=== PATIENT | male | born 1945 | race Caucasian/White ===

== ENCOUNTER 2018-04-16 19:54 | Inpatient (IN) ==
[2018-04-16] MEDS ORDERED: Sod Chloride 0.9% Inj 1,000 ML IV.CONT SCH ×2 (20:45→22:30)
[2018-04-16 21:13] LABS: Baso # (Auto) 0.1 th/mm3 (0.0-0.2); Eos # (Auto) 0.1 th/mm3 (0.0-0.4); Eos % (Auto) 1.2 % (0.0-4.0); Hematocrit 39.4 % (39.0-51.0); Hemoglobin 12.9 gm/dL (13.0-17.0); Lymph # (Auto) 2.3 th/mm3 (1.0-4.8); Lymph % (Auto) 30.8 % (9.0-44.0); Mean Corpuscular HGB Conc 32.6 % (32.0-36.0); Mean Corpuscular Hemoglobin 26.4 pg (27.0-34.0); Mean Platelet Volume 8.7 fL (7.0-11.0); Mono # (Auto) 0.6 th/mm3 (0.0-0.9); Mono % (Auto) 8.1 % (0.0-8.0); Neut # (Auto) 4.3 th/mm3 (1.8-7.7); Neut % (Auto) 58.9 % (16.0-70.0); Platelet Count 192 th/mm3 (150-450); Red Blood Count 4.87 mil/mm3 (4.50-5.90); Red Cell Distribution Width 12.5 % (11.6-17.2); White Blood Count 7.4 th/mm3 (4.0-11.0)
--- NOTE | 2018-04-16 21:18 | XR ---
EXAM DATE: 04/16/2018 9:15 PM EDT AGE/SEX: 72 years / Male INDICATIONS: Chest pain and weakness. CLINICAL DATA: This is the patient's initial encounter. Patient reports that signs and symptoms have been present for 1 day and indicates a pain score of 3/10. MEDICAL/SURGICAL HISTORY: None. None. COMPARISON: [facility], CHEST SINGLE AP, 07/16/2013. . FINDINGS: A single AP view of the chest demonstrates the lungs to be symmetrically aerated without evidence of mass, infiltrate or effusion. The cardiomediastinal contours are unremarkable. Osseous structures a re intact. CONCLUSION: Negative examination. Electronically signed by: Zenon Villar MD 04/16/2018 9:16 PM EDT
[2018-04-16 21:20] LABS: Chloride 101 meq/L (98-107); Potassium 3.9 meq/L (3.5-5.1); Sodium 139 meq/L (136-145)
[2018-04-16 21:23] LABS: Calcium 8.7 mg/dL (8.5-10.1)
[2018-04-16 21:24] LABS: Anion Gap 6 meq/L (5-15); Blood Urea Nitrogen 12 mg/dL (7-18); Glucose,Random 268 mg/dL (74-106)
--- NOTE | 2018-04-16 21:25 | ED ---
HPI General Chief complaint: Weakness Stated complaint: Trouble walking x am Source: patient Mode of arrival: ambulatory Limitations: no limitations History of Present Illness HPI narrative: Is a 72-year-old male presents to the emergency department weakness and unsteady gait. They report that he has not felt well today. He has a sort of limping staggering gait which is very unusual for him. He thinks his right leg is not working quite right. He has not had previous similar symptoms. Is a history of hypertension and diabetes. Blood pressures been very high in the emergency department. He typically takes an JANIE inhibitor and clonidine 0.3 mg 3 times daily. Is been taking that regularly. He takes amlodipine sort of as needed, not not very much. Heart rate has been low in the past. He follows with Dr. Ayers. Recently had a Holter monitor but they do not have those results. He otherwise has been feeling generally well and healthy. Related Data Home Medications Medication Instructions Recorded Confirmed clonidine HCl 0.3 mg PO BID 04/16/18 04/16/18 diazepam [Valium] 5 mg PO DAILY 04/16/18 04/16/18 enalapril maleate 20 mg PO DAILY 04/16/18 04/16/18 metformin 500 mg PO BID 04/16/18 04/16/18 Allergies Allergy/AdvReac Type Severity Reaction Status Date / Time No Known Allergies Allergy Uncoded 07/16/16 03:08 Review of Systems ROS: all other systems reviewed are negative [facility] Medical History Medical History History of anxiety (Acute) History of hypertension (Acute) Hx of diabetes mellitus (Acute) Hx of sinus bradycardia (Acute) Social History Social History Substance History: No History of Abuse Second Hand Smoke Exposure: No Smoking Status: Never smoker How Often Do You Have a Drink Containing Alcohol: Never Immunization History Tetanus Immunization: Unsure Hx Influenza Vaccine This Season: Yes Exam Narrative Exam Narrative: GENERAL: Well-appearing 72-year-old man, no acute distress. SKIN: Focused skin assessment warm/dry. HEAD: Atraumatic. Normocephalic. EYES: Pupils equal and round. No scleral icterus. No injection or drainage. ENT: No nasal bleeding or discharge. Mucous membranes pink and moist. NECK: Trachea midline. No JVD. CARDIOVASCULAR: Regular rate and rhythm. No murmur appreciated. RESPIRATORY: No accessory muscle use. Clear to auscultation. Breath sounds equal bilaterally. GASTROINTESTINAL: Abdomen soft, non-tender, nondistended. Hepatic and splenic margins not palpable. MUSCULOSKELETAL: No obvious deformities. No clubbing. No cyanosis. No edema. NEUROLOGICAL: Awake and alert. No obvious cranial nerve deficits. No facial asymmetry. Strength is full and equal upper and lower 70s. Sensations intact to light touch and equal bilaterally upper and lower extremities. On finger to nose he does display just a little bit of dysmetria as well as difficulty with heel to dennis on the right. On gait testing he also similarly seems to have with the gait with the right lower extremity. PSYCHIATRIC: Appropriate mood and affect; insight and judgment normal. Course Initial Documented Vital Signs Temperature 98.2 F 04/16/18 20:09 Pulse Rate 51 L 04/16/18 20:09 Respiratory Rate 18 04/16/18 20:09 Blood Pressure 225/135 H 04/16/18 20:09 Pulse Oximetry 98 04/16/18 20:09 Last Documented Vital Signs Temperature 98.2 F 04/16/18 20:09 Pulse Rate 48 L 04/16/18 22:19 Respiratory Rate 16 04/16/18 22:19 Blood Pressure 241/85 H 04/16/18 22:19 Pulse Oximetry 98 04/16/18 22:19 Medical Decision Making MDM Narrative Medical decision making narrative: 72-year-old male with a history of hypertension, presents markedly hypertensive with some cerebellar symptoms that are affecting the right. No overt weakness. Gait disturbance is unusual. Unclear etiology. Stroke versus hypertensive crisis versus other. We will give him a small dose of enalapril. Heart rate is still pretty low and symptomatic bradycardia is also possible but seems less likely given that he does appear to display some focal symptoms. Likely admission. Medical Screen Exam Complete: Yes Emergency Medical Condition: Yes Lab Data Result diagrams: 04/16/18 21:00 04/16/18 21:00 Lab Results 04/16/18 04/16/18 04/16/18 Range/Units 21:00 21:00 21:00 CBC w Diff Auto diff final WBC 7.4 (4.0-11.0) th/mm3 RBC 4.87 (4.50-5.90) mil/mm3 Hgb 12.9 L (13.0-17.0) gm/dL Hct 39.4 (39.0-51.0) % MCV 81.0 (80.0-100.0) fL MCH 26.4 L (27.0-34.0) pg MCHC 32.6 (32.0-36.0) % RDW 12.5 (11.6-17.2) % Plt Count 192 (150-450) th/mm3 MPV 8.7 (7.0-11.0) fL Neut % (Auto) 58.9 (16.0-70.0) % Lymph % (Auto) 30.8 (9.0-44.0) % [place] % (Auto) 8.1 H (0.0-8.0) % Eos % (Auto) 1.2 (0.0-4.0) % Baso % (Auto) 1.0 (0.0-2.0) % Neut # (Auto) 4.3 (1.8-7.7) th/mm3 Lymph # (Auto) 2.3 (1.0-4.8) th/mm3 [place] # (Auto) 0.6 (0.0-0.9) th/mm3 Eos # (Auto) 0.1 (0.0-0.4) th/mm3 Baso # (Auto) 0.1 (0.0-0.2) th/mm3 WBC Differential . Differential Comment . PT 10.3 (9.8-11.6) sec INR 1.0 Ratio APTT 25.0 (24.3-30.1) sec Sodium 139 (136-145) meq/L Potassium 3.9 (3.5-5.1) meq/L Chloride 101 (98-107) meq/L Carbon Dioxide 32.0 (21.0-32.0) meq/L Anion Gap 6 (5-15) meq/L BUN 12 (7-18) mg/dL Creatinine 1.30 (0.60-1.30) mg/dL Estimated GFR 54 L (>89) mL/min Random Glucose 268 H (74-106) mg/dL Calcium 8.7 (8.5-10.1) mg/dL Total Bilirubin 0.1 L (0.2-1.0) mg/dL AST 18 (15-37) U/L ALT 23 (12-78) U/L Alkaline Phosphatase 82 (45-117) U/L Total Creatine Kinase 273 (39-308) U/L CK-MB (CK-2) 3.1 (0.5-3.6) ng/mL Troponin I 0.03 (0.02-0.05) ng/mL Total Protein 6.7 (6.4-8.2) g/dL Albumin 3.0 L (3.4-5.0) g/dL Imaging Data Radiologist's impression: Chest X-Ray 04/16/18 20:44 CONCLUSION: Negative examination. Head CT 04/16/18 20:45 CONCLUSION: 1. 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 2. No acute infarct, acute hemorrhage, midline shift or extra-axial fluid collections. . Discharge Plan Discharge Disposition Patient Disposition: 30 Still Patient Physicians Team ED Provider: Andrea Card Primary Care Provider: Roel Whittington Attending Provider: Ishaan Chavez Discharge Interventions Interventions: Vital Signs Last Done: 04/16/18 22:19 Status ED Status: Admitted Patient
[2018-04-16 21:26] LABS: Prothrombin Time 10.3 sec (9.8-11.6)
[2018-04-16 21:27] LABS: Alanine Aminotransferase 23 U/L (12-78); Aspartate Aminotransferase 18 U/L (15-37); Glomerular Filtration Rate 54 mL/min (>89)
[2018-04-16 21:29] LABS: Total Protein 6.7 g/dL (6.4-8.2)
[2018-04-16 21:30] LABS: Alkaline Phosphatase 82 U/L (45-117); Creatine Kinase 273 U/L (39-308)
[2018-04-16 21:32] LABS: Troponin I 0.03 ng/mL (0.02-0.05)
[2018-04-16 21:42] LABS: Creatine Kinase MB 3.1 ng/mL (0.5-3.6)
--- NOTE | 2018-04-16 22:03 | CT ---
EXAM DATE: 04/16/2018 9:57 PM EDT AGE/SEX: 72 years / Male INDICATIONS: Trouble walking after waking up. Possible transient ischemic attack. CLINICAL DATA: This is the patient's initial encounter. Patient reports that signs and symptoms have been present for 1 day and indicates a pain score of 0/10. MEDICAL/SURGICAL HISTORY: . Anxiety. Hypertension. Diabetes. Sinus bradycardia. None. RADIATION DOSE: 59.86 CTDI (mGy) COMPARISON: No prior exams available for comparison. TECHNIQUE: CT of the head without contrast. Using automated exposure control and adjustment of the mA and/or kV according to patient size, radiation dose was kept as low as reasonably achievable to ob tain optimal diagnostic quality images. DICOM format image data is available electronically for revi ew and comparison. FINDINGS: Cerebrum: The ventricles are normal for age. No evidence of midline shift, mass lesion, hemorrhage or acute infarction. No extraaxial fluid collections are seen. Old tiny lacunar infarcts are noted w ithin the right basal ganglia. Posterior Fossa: The cerebellum and brainstem are intact. The 4th ventricle is midline. The cerebe llopontine angle is unremarkable. Extracranial: The visualized portion of the orbits is intact. Skull: The calvaria is intact. No evidence of skull fracture. CONCLUSION: 1. 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 2. No acute infarct, acute hemorrhage, midline shift or extra-axial fluid collections. . Electronically signed by: Zenon Villar MD 04/16/2018 10:01 PM EDT
[2018-04-16] MEDS ORDERED: niCARdipine Inj 25 MG in Sodium Chlor 0.9% Inj 240 ML IV.CONT PRN (22:16)
[2018-04-16] MEDS ORDERED: Acetaminophen 325 MG Tablet PO PRN (22:26)
[2018-04-16] MEDS ORDERED: Potassium Chloride 25 MEQ Effervescent Tablet PO PRN (22:26)
[2018-04-16] MEDS ORDERED: Sodium Phosphate Inj 30 MMOL in Sodium Chlor 0.9% Inj 250 ML IV.SIG PRN (22:26)
[2018-04-16] MEDS ORDERED: Magnesium Sulfate Inj 4 GM in Sodium Chlor 0.9% Inj 92 ML IV.SIG PRN (22:26)
[2018-04-16] MEDS ORDERED: Potassium Phosphate 500 MG Soluble Tablet PO PRN ×2 (22:26)
[2018-04-16] MEDS ORDERED: Potassium Chlor 20 mEq Premix 20 MEQ/100 ML PIGGYBACK IV.SIG PRN ×2 (22:26)
[2018-04-16] MEDS ORDERED: hydrALAZINE HCl Inj 20 MG/ML Vial IV.PUSH PRN (22:26)
[2018-04-16] MEDS ORDERED: Magnesium Oxide 400 MG Tablet PO PRN (22:26)
[2018-04-16] MEDS ORDERED: Potassium Phosphate Inj 30 MMOL in Sodium Chlor 0.9% Inj 250 ML IV.SIG PRN (22:26)
[2018-04-16] MEDS ORDERED: Bisacodyl 10 MG Supp RECTAL PRN (22:26)
[2018-04-16] MEDS ORDERED: Potassium Chlor 40 mEq Premix 40 MEQ/100 ML PIGGYBACK IV.SIG PRN ×2 (22:26)
[2018-04-16] MEDS ORDERED: Magnesium Sulfate Inj 2 GM in Sodium Chlor 0.9% Inj 96 ML IV.SIG PRN (22:26)
[2018-04-16] MEDS ORDERED: Enoxaparin Inj 40 MG/0.4 ML Syringe SQ SCH (22:45)
[2018-04-16] MEDS ORDERED: Enoxaparin Inj 60 MG/0.6 ML Syringe SQ SCH (23:27)
--- NOTE | 2018-04-16 23:51 | CT ---
EXAM DATE: 04/16/2018 11:37 PM EDT AGE/SEX: 72 years / Male INDICATIONS: Dysmetria. Trouble walking after waking up this morning. Prior CT head done. CLINICAL DATA: This is the patient's initial encounter. Patient reports that signs and symptoms have been present for 1 day and indicates a pain score of 0/10. MEDICAL/SURGICAL HISTORY: . Anxiety. Hypertension. Diabetes. Sinus bradycardia. None. RADIATION DOSE: 43.15 CTDI (mGy) COMPARISON: No prior exams available for comparison. TECHNIQUE: Volumetric scanning was performed using a multi-row detector CT scanner during bolus infu caterina of 75 ml Omnipaque 350 (iohexol) nonionic water-soluble contrast as a single exam dose. The d renae was post processed with a variety of visualization algorithms including full volume maximum inten sity projection, multi-planar sliding thin slab reformation, curved planar reformation, and surface r endering techniques. Using automated exposure control and adjustment of the mA and/or kV according t o patient size, radiation dose was kept as low as reasonably achievable to obtain optimal diagnostic quality images. DICOM format image data is available electronically for review and comparison. FINDINGS: There is excellent visualization of the major intracranial arteries out to the second-order branch ve ssels. There is no evidence for aneurysm, vessel truncation or vascular malformation. The proximal right A1 segment is narrow. No flow seen in the anterior communicating artery or either PCOM. CONCLUSION: 1. Atretic proximal right A1 segment. 2. Otherwise negative CTA of the [place]. Electronically signed by: Killian Green MD 04/16/2018 11:50 PM EDT
--- NOTE | 2018-04-16 23:56 | CT ---
EXAM DATE: 04/16/2018 11:37 PM EDT AGE/SEX: 72 years / Male INDICATIONS: Dysmetria. Trouble walking after waking up this morning. Prior CT head done. CLINICAL DATA: This is the patient's initial encounter. Patient reports that signs and symptoms have been present for 1 day and indicates a pain score of 0/10. MEDICAL/SURGICAL HISTORY: . Anxiety. Hypertension. Diabetes. Sinus bradycardia. None. RADIATION DOSE: 43.15 CTDI (mGy) COMPARISON: No prior exams available for comparison. TECHNIQUE: Volumetric scanning was performed using a multirow detector CT scanner during bolus infus ion of 75 ml Omnipaque 350 (iohexol) nonionic water-soluble contrast as a cumulative dose for multip le exams. The data was postprocessed with a variety of visualization algorithms including full-volu me maximum intensity projection, multiplanar sliding thin-slab reformation, curved-planar reformation , and surface-rendering techniques. Using automated exposure control and adjustment of the mA and/or kV according to patient size, radiation dose was kept as low as reasonably achievable to obtain opti mal diagnostic quality images. DICOM format image data is available electronically for review and co mparison. FINDINGS: Aortic Arch: There is a three-vessel origin of the great vessels from the aorta. No evidence of ost ial narrowing Right Carotid: The common carotid artery is intact. The carotid bulb has a normal configuration wit hout ulceration or narrowing. There is a focal calcification in the proximal internal carotid artery without luminal narrowing. The internal carotid artery lumen is smooth without stenosis. The planning supervisor al carotid artery is intact. Left Carotid: The common carotid artery is intact. The carotid bulb has a normal configuration with out ulceration or narrowing. There is a short segment plaque in the proximal internal carotid artery with central calcification and surrounding noncalcified plaque causing less than 40% narrowing. The external carotid artery is intact. Vertebrals: Vertebral system is right dominant. Percent stenosis is calculated using the diameter of the stenotic region over the diameter of the nor mal distal internal carotid artery. CONCLUSION: 1. Short segment calcified and noncalcified plaque in the proximal left internal carotid artery caus ing less than 40% stenosis. 2. Normal luminal diameter of the right carotid system. 3. Right dominant vertebral system. Electronically signed by: Killian Green MD 04/16/2018 11:55 PM EDT
[2018-04-17] MEDS ORDERED: Chlorhexidine Gluconate 2% 1 Pack (2 Cloths) TOPICAL PRN (04:00)
[2018-04-17 07:20] LABS: Baso # (Auto) 0.1 th/mm3 (0.0-0.2); Baso % (Auto) 1.1 % (0.0-2.0); Eos # (Auto) 0.1 th/mm3 (0.0-0.4); Eos % (Auto) 1.3 % (0.0-4.0); Hematocrit 36.5 % (39.0-51.0); Hemoglobin 11.8 gm/dL (13.0-17.0); Lymph # (Auto) 2.2 th/mm3 (1.0-4.8); Lymph % (Auto) 31.5 % (9.0-44.0); Mean Corpuscular HGB Conc 32.4 % (32.0-36.0); Mean Corpuscular Hemoglobin 25.5 pg (27.0-34.0); Mean Corpuscular Volume 78.9 fL (80.0-100.0); Mean Platelet Volume 9.4 fL (7.0-11.0); Mono # (Auto) 0.6 th/mm3 (0.0-0.9); Mono % (Auto) 8.7 % (0.0-8.0); Neut # (Auto) 4.1 th/mm3 (1.8-7.7); Neut % (Auto) 57.4 % (16.0-70.0); Platelet Count 175 th/mm3 (150-450); Red Blood Count 4.63 mil/mm3 (4.50-5.90); Red Cell Distribution Width 12.8 % (11.6-17.2); White Blood Count 7.1 th/mm3 (4.0-11.0)
[2018-04-17 07:40] LABS: Potassium 3.6 meq/L (3.5-5.1)
[2018-04-17 07:43] LABS: Calcium 8.5 mg/dL (8.5-10.1); Carbon Dioxide 30.3 meq/L (21.0-32.0); Magnesium 1.9 mg/dL (1.5-2.5)
[2018-04-17 07:47] LABS: Phosphorus 2.6 mg/dL (2.5-4.9)
[2018-04-17] MEDS ORDERED: Senna/Docusate Sodium 8.6/50 MG Tablet PO SCH (09:00)
[2018-04-17] MEDS ORDERED: Polyethylene Glycol 3350 17 GM Packet PO SCH (09:00)
[2018-04-17] MEDS ORDERED: Nitroglycerin Drip Premix 50 MG/250 ML BOTTLE IV.CONT PRN (09:05)
--- NOTE | 2018-04-17 09:16 | P.HPCC ---
History of Present Illness Service: Critical care ([facility]) Primary Care Physician: Roel Whittington Chief Complaint: Right leg weakness History of Present Illness: 72yM presenting to the ED overnight with right leg weakness/ numbness and unsteady gait. The patient states that he woke up yesterday morning with difficulty moving his right leg and feeling "off balance". He reports that the symptoms did not improve over the course of the day, so he went to the emergency department, where he was found to have profound hypertension. The patient says that he has a history of hypertension and "white coat syndrome" but has never had a hypertensive emergency in the past. He denies facial droop, slurred speech, aphasia, difficulty swallowing, arm weakness/ numbness, or confusion. He has no history of CVA/ TIA in the past. H/O HTN, diabetes, anxiety Family history non-contributory (specifically no history of CVA/ TIA, CAD, [place]) - Diagnosis (1) Hypertensive emergency (2) Ataxia (3) Right leg weakness (4) Bradycardia (5) H/O diabetes mellitus Inpatient Certification: I certify that the inpatient services were ordered in accordance with Medicare regulations governing the order. This includes certification that hospital inpatient services are reasonable and necessary and in the case of services not specified as inpatient-only under 42 CFR 419.22(n), that they are appropriately provided as inpatient services in accordance to with the 2-midnight benchmark under 43 CFR 412.3(e) Estimated Total Length of Stay (Days): 7 Plans for Post Hospital Care: Not yet determined Review of Systems Constitutional: Denies fever(s) Eyes: Denies change in vision Ears, Nose, Mouth, and Throat: Denies difficulty swallowing Cardiovascular: Denies chest pain Respiratory: Denies cough Gastrointestinal: Denies abdominal pain Musculoskeletal: Reports abnormal walking Skin/Breast: Denies rash Neurologic: Reports weakness Psychiatric: Reports anxiety PMFSH - History History Provided By: Patient - Medical History Medical History: Medical History (Last Reviewed 04/17/18 @ 09:37 by Cait Radford DO) History of anxiety History of hypertension Hx of diabetes mellitus Hx of sinus bradycardia - Social History I have reviewed the patient's Social History: Yes - Tobacco History Second Hand Smoke Exposure: No Tobacco Use In Past 30 Days: No Smoking Status: Never smoker - Alcohol History How Often Do You Have a Drink Containing Alcohol: Monthly or less - Substance Use History Substance History: No History of Abuse - Immunization History Tetanus Immunization: Unsure Hx Influenza Vaccine This Season: Yes Medications and Allergies Active Medications: Active Medications Acetaminophen (Tylenol) 650 mg PO Q6H PRN PRN Reason: TEMPERATURE > 101 F Albuterol (Duoneb Neb (Prn)) 1 ampul NEB Q2HR NEB PRN PRN Reason: WHEEZING Aspirin (Ecotrin) 81 mg PO DAILY SAHARA Bisacodyl (Dulcolax Supp) 10 mg RECTAL DAILY PRN PRN Reason: if no BM in last 24h Chlorhexidine Gluconate (Chlorhexidine 2% Cloth) 3 pack TOPICAL DAILY@0400 SAHARA Stop: 04/22/18 03:59 Chlorhexidine Gluconate (Chlorhexidine 2% Cloth) 3 pack TOPICAL DAILY@0400 PRN PRN Reason: Extra cloth needed Stop: 04/22/18 03:59 Dextrose (D50w Syringe) 50 ml IV.PUSH UNSCH PRN PRN Reason: PER HYPOGLYCEMIA PROTOCOL Enoxaparin Sodium (Lovenox Inj) 40 mg SQ DAILY SAHARA Famotidine (Pepcid) 20 mg PO BID SAHARA Glucagon (Glucagon Inj) 1 mg IM ONCE PRN PRN Reason: blood sugar < 60, no iv access Hydralazine HCl (Apresoline Inj) 10 mg IV.PUSH Q30M PRN PRN Reason: sbp > 160, dbp > 95 Sodium Chloride (Ns Inj) 1,000 mls @ 70 mls/hr IV.CONT .[id number] SAHARA Stop: 04/17/18 11:02 Last Admin: 04/16/18 21:13 Dose: 70 mls/hr Magnesium Sulfate Inj 4 gm/ (Sodium Chloride) 100 mls @ 50 mls/hr IV.SIG UNSCH PRN PRN Reason: For Magnesium 0.9 - 1.1 mg/dL Magnesium Sulfate Inj 2 gm/ (Sodium Chloride) 100 mls @ 50 mls/hr IV.SIG UNSCH PRN PRN Reason: For Magnesium 1.2 - 1.6 mg/dL Potassium Chloride (Kcl 40 Meq Premix Inj) 40 meq in 100 mls @ 25 mls/hr IV.SIG Q2H PRN PRN Reason: For Potassium 2.8 - 3.2 mEq/L Potassium Chloride (Kcl 20 Meq Premix Inj) 20 meq in 100 mls @ 50 mls/hr IV.SIG Q2H PRN PRN Reason: For Potassium 3.3 - 3.5 mEq/L Potassium Chloride (Kcl 40 Meq Premix Inj) 40 meq in 100 mls @ 25 mls/hr IV.SIG UNSCH PRN PRN Reason: For Potassium 3.3 - 3.5 mEq/L Potassium Chloride (Kcl 20 Meq Premix Inj) 20 meq in 100 mls @ 50 mls/hr IV.SIG Q2H PRN PRN Reason: For Potassium 2.8 - 3.2 mEq/L Potassium Phosphate 30 mmol/ (Sodium Chloride) 260 mls @ 42 mls/hr IV.SIG UNSCH PRN PRN Reason: SEE LABEL COMMENTS Sodium Phosphate 30 mmol/ (Sodium Chloride) 260 mls @ 42 mls/hr IV.SIG UNSCH PRN PRN Reason: For Phosphorus < 2.5 mg/dL Sodium Chloride (Ns Inj) 1,000 mls @ 84 mls/hr IV.CONT .[id number] [facility] Last Admin: 04/16/18 22:50 Dose: 84 mls/hr Nitroglycerin/Dextrose (Nitroglycerin Drip Premix) 50 mg in 250 mls @ 0 mls/hr IV.CONT TITRATE PRN; Protocol PRN Reason: Per Protocol Insulin Human Regular (Novolin R Inj) 1 units SQ Q6HR [facility]; Protocol Last Admin: 04/17/18 06:10 Dose: 1 units Labetalol HCl (Trandate Inj) 10 mg IV.PUSH Q20M PRN PRN Reason: sbp > 160 or DBP > 95 Lactulose (Lactulose Liq) 30 ml PO BID [facility] Magnesium Oxide (Mag-Ox) 800 mg PO UNSCH PRN PRN Reason: For Magnesium 1.2 - 1.6 mg/dL Ondansetron HCl (Zofran Inj) 4 mg IV.PUSH Q6H PRN PRN Reason: NAUSEA OR VOMITING Polyethylene Glycol (Miralax) 17 gm PO BID [facility] Potassium Bicarb/Potassium Chloride (K-Lyte Cl Eff) 50 meq PO UNSCH PRN PRN Reason: For Potassium 3.3 - 3.5 mEq/L Potassium Phosphate (K-Phos Original) 2,000 mg PO Q4H PRN PRN Reason: Phosphorus Less Than 2.5 mg/dL Potassium Phosphate (K-Phos Original) 2,000 mg PO UNSCH PRN PRN Reason: SEE LABEL COMMENTS Senna/Docusate Sodium (Sabi-Colace) 1 tab PO BID SAHARA Sodium Chloride (Ns Flush) 2 ml IV.FLUSH PRN PRN PRN Reason: FLUSH AFTER USING IV ACCESS Sodium Chloride (Ns Flush) 2 ml IV.FLUSH UNSCH PRN PRN Reason: FLUSH AFTER USING IV ACCESS Allergies Allergy/AdvReac Type Severity Reaction Status Date / Time No Known Allergies Allergy Uncoded 07/16/16 03:08 Home Medications Medication Instructions Recorded Confirmed Type clonidine HCl 0.3 mg PO BID 04/16/18 04/16/18 History diazepam [Valium] 5 mg PO DAILY 04/16/18 04/16/18 History enalapril maleate 20 mg PO DAILY 04/16/18 04/16/18 History metformin 500 mg PO BID 04/16/18 04/16/18 History insulin NPH and regular human 1 sliding scale dose SUB-Q UD 04/17/18 04/17/18 History [Humulin 70/30 U-100 Insulin] Results - Labs CBC & Chem 7: 04/17/18 06:00 04/17/18 06:00 Labs: Short CBC 04/16/18 04/17/18 Range/Units 21:00 06:00 WBC 7.4 7.1 (4.0-11.0) th/mm3 Hgb 12.9 L 11.8 L (13.0-17.0) gm/dL Hct 39.4 36.5 L (39.0-51.0) % Plt Count 192 175 (150-450) th/mm3 [facility] 04/16/18 04/17/18 21:00 06:00 Sodium 139 142 Potassium 3.9 3.6 Chloride 101 105 Carbon Dioxide 32.0 30.3 BUN 12 12 Creatinine 1.30 1.10 Calcium 8.7 8.5 Cardiac Enzymes 04/16/18 Range/Units 21:00 Total Creatine Kinase 273 (39-308) U/L CK-MB (CK-2) 3.1 (0.5-3.6) ng/mL Troponin I 0.03 (0.02-0.05) ng/mL Liver Function 04/16/18 Range/Units 21:00 Total Bilirubin 0.1 L (0.2-1.0) mg/dL AST 18 (15-37) U/L ALT 23 (12-78) U/L Alkaline Phosphatase 82 (45-117) U/L Albumin 3.0 L (3.4-5.0) g/dL - Imaging Impressions Chest X-Ray 04/16/18 20:44 CONCLUSION: Negative examination. Head CT 04/16/18 20:45 CONCLUSION: 1. 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 2. No acute infarct, acute hemorrhage, midline shift or extra-axial fluid collections. . Head CTA 04/16/18 22:22 CONCLUSION: 1. Atretic proximal right A1 segment. 2. Otherwise negative CTA of the [place]. Neck CTA 04/16/18 22:22 CONCLUSION: 1. Short segment calcified and noncalcified plaque in the proximal left internal carotid artery causing less than 40% stenosis. 2. Normal luminal diameter of the right carotid system. 3. Right dominant vertebral system. Exam Vital signs: Vital Signs 04/16/18 20:09 04/16/18 20:21 04/16/18 21:03 Temperature 98.2 F Pulse Rate 51 L 49 L Respiratory Rate 18 16 Blood Pressure 225/135 H 234/86 H Pulse Oximetry 98 99 98 04/16/18 21:22 04/16/18 22:19 04/16/18 22:35 Temperature Pulse Rate 48 L 48 L Respiratory Rate 16 Blood Pressure 245/85 H 241/85 H Pulse Oximetry 99 98 98 04/16/18 23:00 04/17/18 00:16 04/17/18 01:55 Temperature Pulse Rate 48 L 48 L 49 L Respiratory Rate 16 16 16 Blood Pressure 241/88 H 214/70 H 204/70 H Pulse Oximetry 99 04/17/18 03:00 04/17/18 04:29 04/17/18 06:00 Temperature Pulse Rate 49 L 56 L 46 L Respiratory Rate 16 16 16 Blood Pressure 209/77 H 196/76 H 207/74 H Pulse Oximetry 98 98 98 04/17/18 07:15 04/17/18 08:12 Temperature 98 F Pulse Rate 49 L 43 L Respiratory Rate 19 Blood Pressure 211/80 H 207/81 H Pulse Oximetry 98 98 Intake & Output 04/16/18 04/17/18 04/17/18 18:59 06:59 18:59 Weight 94.8 kg 96.8 kg Other: Weight On Admission 94.8 kg Narrative: GEN: Well-nourished well-developed male, no acute distress HEENT: NCAT, pupils 3 mm and reactive bilaterally, tongue and uvula midline NECK: Trachea midline, no carotid bruits CARDIO: Bradycardic to 40s, regular PULM: Clear to auscultation bilaterally ABD: Soft, non-distended, non-tender in all quadrants EXT: No peripheral edema SKIN: No rashes or lesions NEURO: GCS 15, A&Ox3, speech clear and fluent, no slurred speech or aphasia. No facial droop. Motor strength 5/5 in RUE, LUE, and LLE and 4/5 in RLE (hip/ knee flexion/ extension; no foot drop); sensation intact to all extremities. No apparent confusion. PSYCH: Appropriate affect Caprini VTE Risk Assessment Caprini VTE Risk Assessment: Moderate/High Risk (score >= 2) Caprini Risk Assessment Model: Point Value = 1 Point Value = 2 Point Value = 3 Point Value = 5 Age 41-60 Minor surgery BMI > 25 kg/m2 Swollen legs Varicose veins or History of unexplained or recurrent spontaneous Oral contraceptives or hormone replacement Sepsis (< 1 month) Serious lung disease, including pneumonia (< 1 month) Abnormal pulmonary function Acute myocardial infarction Congestive heart failure (< 1 month) History of inflammatory bowel disease Medical patient at bed rest Age 61-74 Arthroscopic surgery Major open surgery (> 45 min) Laparoscopic surgery (> 45 min) Malignancy Confined to bed (> 72 hours) Immobilizing plaster cast Central venous access Age >= 75 History of VTE Family history of VTE Factor V Leiden Prothrombin [id number] Lupus anticoagulant Anticardiolipin antibodies Elevated serum homocysteine Heparin-induced thrombocytopenia Other congenital or acquired thrombophilia Stroke (< 1 month) Elective arthroplasty Hip, pelvis, or leg fracture Acute spinal cord injury (< 1 month) Prophylaxis Regimen: Total Risk Factor Score Risk Level Prophylaxis Regimen 0-1 Low Early ambulation 2 Moderate Order ONE of the following: *Sequential Compression Device (SCD) *Heparin 5000 units SQ BID 3-4 Higher Order ONE of the following medications: *Heparin 5000 units SQ TID *Enoxaparin/Lovenox 40 mg SQ daily (WT < 150 kg, CrCl > 30 mL/min) *Enoxaparin/Lovenox 30 mg SQ daily (WT < 150 kg, CrCl > 10-29 mL/min) *Enoxaparin/Lovenox 30 mg SQ BID (WT < 150 kg, CrCl > 30 mL/min) AND/OR *Sequential Compression Device (SCD) 5 or more Highest Order ONE of the following medications: *Heparin 5000 units SQ TID (Preferred with Epidurals) *Enoxaparin/Lovenox 40 mg SQ daily (WT < 150 kg, CrCl > 30 mL/min) *Enoxaparin/Lovenox 30 mg SQ daily (WT < 150 kg, CrCl > 10-29 mL/min) *Enoxaparin/Lovenox 30 mg SQ BID (WT < 150 kg, CrCl > 30 mL/min) AND *Sequential Compression Device (SCD) Assessment and Plan - Problem List (1) Hypertensive emergency Code(s): I16.1 - Hypertensive emergency Status: Acute (2) Ataxia Code(s): R27.0 - Ataxia, unspecified Status: Acute (3) Right leg weakness Code(s): R29.898 - Other symptoms and signs involving the musculoskeletal system Status: Acute (4) Bradycardia Code(s): R00.1 - Bradycardia, unspecified Status: Acute (5) H/O diabetes mellitus Code(s): Z86.39 - Personal history of other endocrine, nutritional and metabolic disease Status: Acute - Assessment and Plan Plan: 72yM presenting with ataxia, right lower extremity weakness, and profound hypertension with concern for brainstem CVA NEURO: -Neuro consult appreciated -MRI brain -CT/ CTA head and neck reviewed, no hemorrhage or flow-limiting lesions noted -Patient presented with unclear time of onset so was not a candidate for tPA -Stroke pathway -Continue home dose of valium -Patient is hypertensive and bradycardic but has no signs of elevated intracranial pressure CARDIO: -Profoundly hypertensive with relative bradycardia (HR in 30s-40s), will switch cardene gtt to tridil gtt for better BP control. Please keep SBP <180 mmHg -ASA -monitoring and evaluation advisor, ECHO -Continue home dose of clonidine, hold JANIE-I PULM: -Incentive spirometry GI: -No acute issues : -No acute issues F/E/N: -Passed dysphagia screening, start cardiac diet -Sliding scale -No maintenance fluids ID: -No acute issues HEME: -No acute issues PROPHY: -Lovenox, SCDs -No indication for stress ulcer prophylaxis OVERALL: This patient is critically ill with signs and symptoms concerning for brainstem CVA and profound hypertension requiring vasoactive medications for BP control. He will need transfer to the main campus for ICU care, close monitoring , and neurology evaluation. I explained this plan to the patient and his , who understand and agree. Counseling/ Coordination of Care: Total critical care time: 68 minutes. This includes examining the patient, gathering history from someone other than the patient (i.e., chart review), discussing the patient's care with other providers, managing the patient's blood pressure with vasoactive medications, ordering and interpreting radiology studies, ordering and interpreting laboratory studies, arranging for transfer to another campus, re-evaluation at frequent intervals, and documentation. All critical care time is separate and exclusive of procedures, teaching, and patient/ family updates. Code Status: Full H&P: Quality - Stroke Contraindication Not Initiating IV-Tpa: Contraindicated Symptom Onset Unknown: Yes Rehab Services Assessed: Physical therapy assessment - VTE Deep Vein Thrombosis/Pulmonary Embolism Present on Admission: No
[2018-04-17] MEDS ORDERED: Senna/Docusate Sodium 8.6/50 MG Tablet PO PRN (09:54)
[2018-04-17] MEDS: Famotidine 20 MG Tablet PO SCH ×2 (10:28→21:18)
[2018-04-17] MEDS: Chlorhexidine Gluconate 2% 1 Pack (2 Cloths) TOPICAL SCH (10:28)
[2018-04-17] MEDS: Enoxaparin Inj 40 MG/0.4 ML Syringe SQ SCH (10:29)
[2018-04-17 10:59] LABS: Chol/HDL Ratio 2.82 Ratio; HDL Cholesterol 52.7 mg/dL (40.0-60.0)
--- NOTE | 2018-04-17 12:23 | ECHRPT ---
Indication: CVA/TIA CONCLUSIONS The left ventricular systolic function is normal with an estimated ejection fraction in the range of 55-60%. Normal left ventricular size. Moderate concentric left ventricular hypertrophy. No regional wall motion abnormalities are present. BP: / HR: Rhythm: MEASUREMENTS (Male / Female) Normal Values Technical Quality: 2D ECHO LV Diastolic Diameter PLAX 4.8 cm 4.2 - 5.9 / 3.9 - 5.3 cm LV Systolic Diameter PLAX 3.6 cm IVS Diastolic Thickness 1.3 cm 0.6 - 1.0 / 0.6 - 0.9 cm LVPW Diastolic Thickness 1.4 cm 0.6 - 1.0 / 0.6 - 0.9 cm LV Relative Wall Thickness 0.6 LVOT Diameter 2.0 cm LA Systolic Diameter LX 3.2 cm 3.0 - 4.0 / 2.7 - 3.8 cm LV Ejection Fraction MOD 4C 56.7 % LV Ejection Fraction 4C AL 60.8 % M-MODE Aortic Root Diameter MM 2.3 cm LA Systolic Diameter MM 3.2 cm LA Ao Ratio MM 1.4 AV Cusp Separation MM 1.8 cm DOPPLER AV Peak Velocity 130.0 cm/s AV Peak Gradient 6.8 mmHg LVOT Peak Velocity 100.0 cm/s LVOT Peak Gradient 4.0 mmHg AV Area Cont Eq pk 2.4 cm MV Area PHT 3.2 cm Mitral E Point Velocity 81.4 cm/s Mitral A Point Velocity 79.0 cm/s Mitral E to A Ratio 1.0 LV E' Lateral Velocity 6.9 cm/s Mitral E to LV E' Lateral Ratio 11.8 LV E' Septal Velocity 4.6 cm/s Mitral E to LV E' Septal Ratio 17.8 PV Peak Velocity 88.2 cm/s PV Peak Gradient 3.1 mmHg FINDINGS LEFT VENTRICLE The left ventricular systolic function is normal with an estimated ejection fraction in the range of 55-60%. Normal left ventricular size. Moderate concentric left ventricular hypertrophy. No regional wall motion abnormalities are present. RIGHT VENTRICLE Normal right ventricular size and systolic function. LEFT ATRIUM The left atrial size is normal. RIGHT ATRIUM The right atrial size is normal. ATRIAL SEPTUM Normal atrial septal thickness without atrial level shunting by limited color doppler interrogation. AORTA The aortic root and proximal ascending aorta are normal in size on limited imaging. MITRAL VALVE Structurally normal mitral valve. No mitral valve stenosis or regurgitation. AORTIC VALVE Trileaflet aortic valve. No aortic valve stenosis or regurgitation. TRICUSPID VALVE Structurally normal tricuspid valve. No tricuspid valve stenosis or regurgitation. PULMONARY VALVE The pulmonary valve is not well visualized. VESSELS The inferior vena cava is normal in size. PERICARDIUM No pericardial effusion. Andrea Santoyo MD, FACC (Electronically Signed) Final Date:17 April 2018 12:22
--- NOTE | 2018-04-17 12:50 | MR ---
EXAM DATE: 04/17/2018 12:08 PM EDT AGE/SEX: 72 years / Male INDICATIONS: CVA. CLINICAL DATA: This is the patient's initial encounter. Patient reports that signs and symptoms have been present for 2 days and indicates a pain score of 0/10. MEDICAL/SURGICAL HISTORY: Diabetes mellitus type II. Hypertension. None. COMPARISON: No prior exams available for comparison. TECHNIQUE: Multiplanar, multisequence examination of the brain was performed without contrast. FINDINGS: Cerebrum: The ventricles are normal for age. No evidence of midline shift, mass lesion, hemorrhage or acute infarction. No extraaxial fluid collections are seen. The pituitary gland and suprasellar cistern are normal in configuration. White Matter: Minimal periventricular matter changes are evident. Posterior Fossa: Posterior fossa is abnormal. There is focal restricted diffusion involving the left cerebellar peduncle and brachium pontis. There is no hemorrhage associated with this. Fourth ventricl e is midline. Cerebellar hemisphere is unremarkable. Diffusion Imaging: Restricted diffusion left cerebellar peduncle. Extracranial: The visualized portions of the orbits and paranasal sinuses are unremarkable. CONCLUSION: 1. Restricted diffusion left cerebellar peduncle. 2. The basilar artery appears patent. Electronically signed by: Chris Jones MD 04/17/2018 12:48 PM EDT
[2018-04-17] MEDS ORDERED: Polyethylene Glycol 3350 17 GM Packet PO PRN (13:13)
--- NOTE | 2018-04-17 13:32 | MB ---
cc: Abimbola Morton MD DATE: 04/17/2018 HISTORY OF PRESENT ILLNESS: The patient is a 72-year-old man who comes in with unsteadiness, ataxia on the right side; staggering. He has a known history of hypertension and diabetes. He is on an JANIE inhibitor and clonidine. He states he takes aspirin every so often, he mostly forgets. He has been having some bradycardia. He follows with Dr. Vieyra for that. His amlodipine is apparently as needed per chart note; apparently had a Holter monitor, but we do not have those results. PAST MEDICAL HISTORY: Is also anxiety, diabetes, hypertension and bradycardia. SOCIAL HISTORY: He is , does not smoke, does not drink. PHYSICAL EXAMINATION: VITAL SIGNS: His temperature is 98, heart rate 44, respiratory rate 20, blood pressure at 10:50 a.m. is 169/74. NECK: Supple with no appreciable bruits. HEART: Regular. NEUROLOGIC: He is awake and alert; fluent. Pupils reactive. Visual clement full. Face is symmetric. Tongue midline. Motor-thornton no significant drift or leg lag, but he does have significant dysmetria of [id number] on the right upper as well as lower extremity. His DTRs are 1+. Toes withdraws gait is not assessed at this time. LABORATORY DATA: His cholesterol is 149, triglycerides 69, LDL 83, HDL 52.7. His hemoglobin A1c is pending. White count 7.1, hemoglobin 11.8, his platelets 175,000. Chemistries: Glucose 210, GFR 65, albumin 3. IMAGIN. He had a CT of the brain; shows an old lacune in the right basal ganglia, but nothing acute seen on initial CT on admission. 2. CT of the carotid showed left ICA about 40%. [place] showed atretic right A1, but otherwise really unremarkable. 3. Just came back from an MRI of the brain that show an acute infarct over the left brainstem region. We will wait for the official report. IMPRESSION: 1. Left brainstem infarct in a patient with known history of hypertension, diabetes, hyperlipidemia. Recommend placing him on daily aspirin since he is noncompliant. 2. Permissible hypertension. For the next 48 hours certainly treat if over 220/110 but do not lower him below 140 systolic. 3. Issue with the bradycardia we will defer as cardiology will be assessing him or not. I know, there is mention that he may have had a Holter at some point in time. Continue to monitor him on telemetry. He will need PT, OT evaluation as well as a rehab consult to possibly Ernie if he is a candidate. Accu-Cheks with insulin sliding scale. Also hemoglobin A1c is pending. Risk factor modification. We will continue current care. Further recommendations. MD CHARLES Mccarty/avinash/isabella , 12:26 PM , 12:37 PM
--- NOTE | 2018-04-17 14:29 | ECG ---
Date Performed: 04/16/2018 Time Performed: 21:08:45 PTAGE: 72 years EKG: SINUS BRADYCARDIA NONSPECIFIC T-WAVE ABNORMALITY BORDERLINE ECG Compared to PREVIOUS TRACING , the nonspecific T-wave changes are new. There has also been an increas e in precordial voltage. The tracing is consistent with progressive left ventricular hypertrophy. PRE VIOUS TRACIN07/16/2013 19.35 DOCTOR: Jennifer Hernandez Interpretating Date/Time 04/17/2018 14:27:46
[2018-04-17] MEDS ORDERED: Dextrose 50% in Water 50 ML Vial IV.PUSH PRN (17:25)
[2018-04-17] MEDS ORDERED: hydrALAZINE 25 MG Tablet PO ONE (17:26)
[2018-04-17 17:28] LABS: Bilirubin,Urine Negative (Negative); Clarity,Urine Clear (Clear); Color,Urine Yellow (Yellw/Straw); Glucose,Urine (UA) 250 mg/dL (Negative); Leukocyte Esterase,Urine Negative (Negative); Nitrite,Urine Negative (Negative); Urobilinogen,Urine 0.2 mg/dL (Less than 2)
[2018-04-17 17:35] LABS: RBC,Urine 0-3 /hpf (0-3)
[2018-04-17 17:36] LABS: Squamous Epithelial Cell,Urine 0-5 /hpf (0-5)
[2018-04-17] MEDS: Insulin NovoLIN Regular Correctional Sugar Inj SQ SCH ×2 (17:55→21:39)
[2018-04-17] MEDS ORDERED: hydrALAZINE 25 MG Tablet PO SCH (21:00)
[2018-04-17] MEDS: amLODIPine 10 MG Tablet PO SCH (21:19)
[2018-04-17] MEDS: hydrALAZINE 50 MG Tablet PO SCH (22:18)
[2018-04-18] MEDS: Labetalol HCl Inj 100 MG/20 ML Vial IV.PUSH PRN ×2 (04:24→05:05)
[2018-04-18] MEDS: Chlorhexidine Gluconate 2% 1 Pack (2 Cloths) TOPICAL SCH (04:27)
[2018-04-18] MEDS: hydrALAZINE 50 MG Tablet PO SCH (05:34)
[2018-04-18 06:12] LABS: Potassium 3.5 meq/L (3.5-5.1)
[2018-04-18 06:15] LABS: Calcium 8.6 mg/dL (8.5-10.1); Carbon Dioxide 29.3 meq/L (21.0-32.0); Magnesium 1.9 mg/dL (1.5-2.5)
--- NOTE | 2018-04-18 07:36 | CT ---
EXAM DATE: 04/18/2018 7:05 AM EDT AGE/SEX: 72 years / Male INDICATIONS: Right sided weakness. Possible brain attack. CLINICAL DATA: This is the patient's initial encounter. Patient reports that signs and symptoms have been present for 1 day and indicates a pain score of Nonresponsive. MEDICAL/SURGICAL HISTORY: . Anxiety. Hypertension. Diabetes. None. RADIATION DOSE: 58.27 CTDI (mGy) COMPARISON: Brain MRI 04/17/2018 CT head 04/16/2018. TECHNIQUE: CT of the head without contrast. Using automated exposure control and adjustment of the mA and/or kV according to patient size, radiation dose was kept as low as reasonably achievable to ob tain optimal diagnostic quality images. DICOM format image data is available electronically for revi ew and comparison. FINDINGS: Cerebrum: The ventricles are normal for age. No evidence of midline shift, mass lesion, hemorrhage or acute infarction. No extraaxial fluid collections are seen. Posterior Fossa: There is an 8 mm hypodensity in the left cerebral peduncle consistent with an ongoi ng small stroke. There is no evidence of any adjacent hemorrhage Extracranial: The visualized portion of the orbits is intact. Skull: The calvaria is intact. No evidence of skull fracture. CONCLUSION: 1. Small 8 mm hypodensity in the left cerebral peduncle consistent with a small stroke. No evidence of hemorrhage. . Electronically signed by: Andrea Badillo MD 04/18/2018 7:35 AM EDT
[2018-04-18] MEDS: Enoxaparin Inj 40 MG/0.4 ML Syringe SQ SCH (08:19)
[2018-04-18] MEDS: Famotidine 20 MG Tablet PO SCH (08:19)
[2018-04-18 08:23] LABS: Baso # (Auto) 0.1 th/mm3 (0.0-0.2); Eos # (Auto) 0.1 th/mm3 (0.0-0.4); Eos % (Auto) 0.9 % (0.0-4.0); Hemoglobin 13.7 gm/dL (13.0-17.0); Lymph # (Auto) 2.4 th/mm3 (1.0-4.8); Lymph % (Auto) 22.9 % (9.0-44.0); Mean Corpuscular HGB Conc 31.9 % (32.0-36.0); Mean Corpuscular Hemoglobin 25.9 pg (27.0-34.0); Mean Corpuscular Volume 81.2 fL (80.0-100.0); Mean Platelet Volume 9.4 fL (7.0-11.0); Mono # (Auto) 0.9 th/mm3 (0.0-0.9); Mono % (Auto) 8.3 % (0.0-8.0); Neut # (Auto) 6.9 th/mm3 (1.8-7.7); Neut % (Auto) 66.9 % (16.0-70.0); Platelet Count 194 th/mm3 (150-450); Red Cell Distribution Width 13.1 % (11.6-17.2); White Blood Count 10.4 th/mm3 (4.0-11.0)
[2018-04-18] MEDS: diazePAM 5 MG Tablet PO SCH ×2 (09:00→09:18)
[2018-04-18] MEDS: Insulin Aspart Prot 70/30 1,000 UNITS/10 ML Vial SQ SCH ×2 (09:13→21:02)
[2018-04-18] MEDS: Insulin NovoLIN Regular Correctional Sugar Inj SQ SCH ×4 (09:50→21:47)
[2018-04-18] MEDS: amLODIPine 10 MG Tablet PO SCH (09:50)
--- NOTE | 2018-04-18 10:33 | P.PN ---
Subjective Interval history: worsening right sided weakness and dysarthria transferred to [facility] s/p cta results pending. Physical Exam Vital signs: Vital Signs 04/17/18 10:35 04/17/18 10:40 04/17/18 10:50 Temperature Pulse Rate 42 L 42 L 44 L Respiratory Rate 20 19 20 Blood Pressure 199/84 H 179/76 H 169/74 H Pulse Oximetry 100 99 98 04/17/18 11:00 04/17/18 11:30 04/17/18 12:07 Temperature 97.9 F Pulse Rate 44 L 46 L 40 L Respiratory Rate 21 25 H 20 Blood Pressure 187/80 H 179/70 H 197/76 H Pulse Oximetry 99 99 99 04/17/18 12:30 04/17/18 13:00 04/17/18 13:30 Temperature Pulse Rate 52 L 48 L 46 L Respiratory Rate 23 23 20 Blood Pressure 200/81 H 190/79 H 182/72 H Pulse Oximetry 99 99 99 04/17/18 14:33 04/17/18 15:00 04/17/18 15:49 Temperature Pulse Rate 46 L 44 L Respiratory Rate 18 16 Blood Pressure 193/74 H Pulse Oximetry 100 97 99 04/17/18 15:51 04/17/18 17:00 04/17/18 18:00 Temperature 98 F Pulse Rate 40 L 54 L 48 L Respiratory Rate 18 29 H 21 Blood Pressure 207/79 H 242/94 H 197/83 H Pulse Oximetry 100 99 99 04/17/18 20:00 04/17/18 20:15 04/17/18 21:00 Temperature 97.3 F L Pulse Rate 52 L Respiratory Rate 16 Blood Pressure 189/73 H 204/87 H Pulse Oximetry 100 99 04/17/18 22:00 04/17/18 23:00 04/18/18 00:00 Temperature 97.7 F Pulse Rate 51 L 74 Respiratory Rate 18 Blood Pressure 185/68 H 144/65 H 174/84 H Pulse Oximetry 04/18/18 01:00 04/18/18 02:00 04/18/18 03:00 Temperature Pulse Rate 76 79 71 Respiratory Rate Blood Pressure 160/69 H 161/72 H 174/88 H Pulse Oximetry 04/18/18 04:00 04/18/18 05:00 04/18/18 06:00 Temperature Pulse Rate 65 66 75 Respiratory Rate 20 Blood Pressure 195/103 H 185/90 H 174/71 H Pulse Oximetry 98 04/18/18 07:00 04/18/18 07:10 04/18/18 08:00 Temperature 98.2 F Pulse Rate 75 80 80 Respiratory Rate 20 Blood Pressure 181/64 H 181/64 H Pulse Oximetry 97 04/18/18 08:10 04/18/18 08:48 04/18/18 09:00 Temperature Pulse Rate 94 H 84 88 Respiratory Rate 23 19 20 Blood Pressure 198/92 H 176/84 H 176/84 H Pulse Oximetry 97 96 98 Intake & Output 04/17/18 04/18/18 04/18/18 18:59 06:59 18:59 Intake Total 980 / 980 870 / 870 Output Total 220 / 220 950 / 950 Balance 760 / 760 -80 / -80 Weight 96.8 kg 96.8 kg Intake: IV 500 / 500 150 / 150 Nitroglycerin Drip Premix 50 mg 150 / 150 In 250 ml @ 5 MCG/MIN 1.5 mls/ hr IV.CONT TITRATE PRN Rx#: [id number] NS Inj 1,000 ML @ 84 mls/hr IV. 500 / 500 CONT .[id number] SAHARA Rx#: [id number] Oral 480 / 480 720 / 720 Output: Urine 220 / 220 950 / 950 Other: Date of Last Bowel Movement 04/16/18 04/18/18 04/18/18 # Bowel Movements 4 Weight On Admission 94.8 kg Narrative: awake alert slurred right facial right hemiparesis arm 0-1/5 right leg 2/5 sensory ok - Constitutional no acute distress - Routine HEENT Exam Head: Present: normocephalic, atraumatic - Routine Neurological Exam Present: alert, motor deficit, facial asymmetry (right hemiparesis arm and leg - unable to lift arm can feel) Results - Labs CBC & Chem 7: 04/18/18 05:50 04/18/18 05:50 Laboratory Results - last 24 hr 04/17/18 04/17/18 04/17/18 06:00 06:00 08:10 CBC w Diff WBC RBC Hgb Hct MCV MCH MCHC RDW Plt Count MPV Neut % (Auto) Lymph % (Auto) [place] % (Auto) Eos % (Auto) Baso % (Auto) Neut # (Auto) Lymph # (Auto) [place] # (Auto) Eos # (Auto) Baso # (Auto) WBC Differential Differential Comment Sodium Potassium Chloride Carbon Dioxide Anion Gap BUN Creatinine Estimated GFR POC Glucose Random Glucose Hemoglobin A1c 9.0 H Calcium Phosphorus Magnesium Triglycerides 69 Cholesterol 149 LDL Cholesterol, Calc 83 HDL Cholesterol 52.7 Cholesterol/HDL Ratio 2.82 Ur Collection Type Urine Color Urine Clarity Urine pH Ur Specific [place] Urine Protein Urine Glucose (UA) Urine Ketones Urine Occult Blood Urine Nitrate Urine Bilirubin Urine Urobilinogen Ur Leukocyte Esterase Urine RBC Ur Squamous Epith Cells Micro UA Comment Ur Microscopic Review Urine Culture Comments Nasal Screen MRSA (PCR) Not detected 04/17/18 04/17/18 04/17/18 16:00 16:34 21:25 CBC w Diff WBC RBC Hgb Hct MCV MCH MCHC RDW Plt Count MPV Neut % (Auto) Lymph % (Auto) [place] % (Auto) Eos % (Auto) Baso % (Auto) Neut # (Auto) Lymph # (Auto) [place] # (Auto) Eos # (Auto) Baso # (Auto) WBC Differential Differential Comment Sodium Potassium Chloride Carbon Dioxide Anion Gap BUN Creatinine Estimated GFR POC Glucose 248 H 184 H Random Glucose Hemoglobin A1c Calcium Phosphorus Magnesium Triglycerides Cholesterol LDL Cholesterol, Calc HDL Cholesterol Cholesterol/HDL Ratio Ur Collection Type Clean catch Urine Color Yellow Urine Clarity Clear Urine pH 6.0 Ur Specific [place] 1.010 Urine Protein Negative Urine Glucose (UA) 250 H Urine Ketones Trace H Urine Occult Blood Negative Urine Nitrate Negative Urine Bilirubin Negative Urine Urobilinogen 0.2 Ur Leukocyte Esterase Negative Urine RBC 0-3 Ur Squamous Epith Cells 0-5 Micro UA Comment Culture not ind Ur Microscopic Review Microscopic reviewed Urine Culture Comments Culture not ind Nasal Screen MRSA (PCR) 04/18/18 04/18/18 04/18/18 05:50 05:50 08:09 CBC w Diff Auto diff final WBC 10.4 RBC 5.30 Hgb 13.7 Hct 43.0 MCV 81.2 MCH 25.9 L MCHC 31.9 L RDW 13.1 Plt Count 194 MPV 9.4 Neut % (Auto) 66.9 Lymph % (Auto) 22.9 [place] % (Auto) 8.3 H Eos % (Auto) 0.9 Baso % (Auto) 1.0 Neut # (Auto) 6.9 Lymph # (Auto) 2.4 [place] # (Auto) 0.9 Eos # (Auto) 0.1 Baso # (Auto) 0.1 WBC Differential . Differential Comment . Sodium 141 Potassium 3.5 Chloride 104 Carbon Dioxide 29.3 Anion Gap 8 BUN 10 Creatinine 1.10 Estimated GFR 65 L POC Glucose 205 H Random Glucose 188 H Hemoglobin A1c Calcium 8.6 Phosphorus 3.0 Magnesium 1.9 Triglycerides Cholesterol LDL Cholesterol, Calc HDL Cholesterol Cholesterol/HDL Ratio Ur Collection Type Urine Color Urine Clarity Urine pH Ur Specific [place] Urine Protein Urine Glucose (UA) Urine Ketones Urine Occult Blood Urine Nitrate Urine Bilirubin Urine Urobilinogen Ur Leukocyte Esterase Urine RBC Ur Squamous Epith Cells Micro UA Comment Ur Microscopic Review Urine Culture Comments Nasal Screen MRSA (PCR) - Imaging Impressions Head MRI 04/17/18 00:00 CONCLUSION: 1. Restricted diffusion left cerebellar peduncle. 2. The basilar artery appears patent. Head CT 04/18/18 06:35 CONCLUSION: 1. Small 8 mm hypodensity in the left cerebral peduncle consistent with a small stroke. No evidence of hemorrhage. . Assessment and Plan - Plan cta cow done at po result pending would repeat mri brain asa hob flat/fluids swallow eval. pt-ot-st rehab permissible htn scds/lovenox Progress Note: Quality - Stroke Contraindication Not Initiating IV-Tpa: Contraindicated Symptom Onset Unknown: Yes Rehab Services Assessed: Physical therapy assessment
--- NOTE | 2018-04-18 10:41 | CT ---
EXAM DATE: 04/18/2018 10:33 AM EDT AGE/SEX: 72 years / Male INDICATIONS: Worsening brain stem stroke CLINICAL DATA: This is the patient's subsequent encounter. Patient reports that signs and symptoms h ave been present for 2 days and indicates a pain score of 0/10. MEDICAL/SURGICAL HISTORY: Hypertension. Diabetes. Sinus bradycardia None. RADIATION DOSE: 43.20 CTDI (mGy) ; Combined studies COMPARISON: [facility], CTA NECK W CONTRAST W 3D, 04/16/2018. . TECHNIQUE: Volumetric scanning was performed using a multirow detector CT scanner during bolus infus ion of 74ML ml Omnipaque 350 (iohexol) nonionic water-soluble contrast as a cumulative dose for mult iple exams. The data was postprocessed with a variety of visualization algorithms including full-vo lume maximum intensity projection, multiplanar sliding thin-slab reformation, curved-planar reformati on, and surface-rendering techniques. Using automated exposure control and adjustment of the mA and/ or kV according to patient size, radiation dose was kept as low as reasonably achievable to obtain op timal diagnostic quality images. DICOM format image data is available electronically for review and comparison. FINDINGS: Aortic Arch: There is a three-vessel origin of the great vessels from the aorta. No evidence of ost ial narrowing Right Carotid: The common carotid artery is intact. The carotid bulb has a normal configuration wit hout ulceration or narrowing. The internal carotid artery lumen is smooth without stenosis. The ext ernal carotid artery is intact. Left Carotid: The common carotid artery is intact. The carotid bulb has a normal configuration with out ulceration or narrowing. The internal carotid artery lumen is smooth without stenosis. The exte rnal carotid artery is intact. Minimal eccentric atherosclerotic disease Vertebrals: The vertebral arteries are asymmetric with the right one being dominant. No stenotic le sions are seen. Percent stenosis is calculated using the diameter of the stenotic region over the diameter of the nor mal distal internal carotid artery. CONCLUSION: 1. The right vertebral artery is dominant. No filling defect or narrowing is identified. Electronically signed by: Andrea Badillo MD 04/18/2018 10:40 AM EDT
--- NOTE | 2018-04-18 10:44 | CT ---
EXAM DATE: 04/18/2018 10:33 AM EDT AGE/SEX: 72 years / Male INDICATIONS: Worsening brain stem stroke CLINICAL DATA: This is the patient's subsequent encounter. Patient reports that signs and symptoms h ave been present for 2 days and indicates a pain score of 0/10. MEDICAL/SURGICAL HISTORY: Hypertension. Diabetes. Sinus bradycardia None. RADIATION DOSE: 43.20 CTDI (mGy) ; Combined studies COMPARISON: [facility], CTA HEAD W CONTRAST W 3D, 04/16/2018. . TECHNIQUE: Volumetric scanning was performed using a multi-row detector CT scanner during bolus infu caterina of 74ML ml Omnipaque 350 (iohexol) nonionic water-soluble contrast as a cumulative dose for mul tiple exams. The data was post processed with a variety of visualization algorithms including full volume maximum intensity projection, multi-planar sliding thin slab reformation, curved planar reform ation, and surface rendering techniques. Using automated exposure control and adjustment of the mA a nd/or kV according to patient size, radiation dose was kept as low as reasonably achievable to obtain optimal diagnostic quality images. DICOM format image data is available electronically for review a nd comparison. FINDINGS: There is some mild narrowing involving the origin of the right M2 segment by approximately 50%. The l eft middle cerebral circulations unremarkable. The anterior cerebral circulation is diffusely more na rrow than was on the sixth. The may be some mild narrowing involving the right vertebral artery distally CONCLUSION: 1. The vertebral arteries dominant contributor the majority of flow to the basilar circulation. 2. Mild narrowing involving the M2 segment origin on the right. Electronically signed by: Andrea Badillo MD 04/18/2018 10:43 AM EDT
--- NOTE | 2018-04-18 11:58 | P.PNCC ---
Subjective Subjective Remarks/Hospital Course: 72yM presenting to the ED overnight on 04/16/18 with right leg weakness/ numbness and unsteady gait. The patient states that he woke up yesterday morning with difficulty moving his right leg and feeling "off balance". He reports that the symptoms did not improve over the course of the day, so he went to the emergency department, where he was found to have profound hypertension. The patient says that he has a history of hypertension and "white coat syndrome" but has never had a hypertensive emergency in the past. He denies facial droop, slurred speech, aphasia, difficulty swallowing, arm weakness/ numbness, or confusion. He has no history of CVA/ TIA in the past. H/O HTN, diabetes, anxiety SUBJ 04/18/18: Patient was transferred to [facility] today for deteriorating clinical condition. I evaluated patient in the ICU. Currently has significant right facial droop worsening hemiplegia unable to move right side even though sensation appears to be preserved. 0 out of 5 power on the right upper and lower extremity. Patient also has difficulty clearing secretions and has bilateral wheezing. CT did not show any significant change an MRI is pending at this time. I explained to the family including about acute risk of deterioration and need for airway protection. They expressed good understanding. Objective Vital Signs / I&O: Vital Signs 04/17/18 12:07 04/17/18 12:30 04/17/18 13:00 Temperature 97.9 F Pulse Rate 40 L 52 L 48 L Respiratory Rate 20 23 23 Blood Pressure 197/76 H 200/81 H 190/79 H Pulse Oximetry 99 99 99 04/17/18 13:30 04/17/18 14:33 04/17/18 15:00 Temperature Pulse Rate 46 L 46 L 44 L Respiratory Rate 20 18 16 Blood Pressure 182/72 H 193/74 H Pulse Oximetry 99 100 97 04/17/18 15:49 04/17/18 15:51 04/17/18 17:00 Temperature 98 F Pulse Rate 40 L 54 L Respiratory Rate 18 29 H Blood Pressure 207/79 H 242/94 H Pulse Oximetry 99 100 99 04/17/18 18:00 04/17/18 20:00 04/17/18 20:15 Temperature 97.3 F L Pulse Rate 48 L 52 L Respiratory Rate 21 16 Blood Pressure 197/83 H 189/73 H Pulse Oximetry 99 100 99 04/17/18 21:00 04/17/18 22:00 04/17/18 23:00 Temperature Pulse Rate 51 L Respiratory Rate Blood Pressure 204/87 H 185/68 H 144/65 H Pulse Oximetry 04/18/18 00:00 04/18/18 01:00 04/18/18 02:00 Temperature 97.7 F Pulse Rate 74 76 79 Respiratory Rate 18 Blood Pressure 174/84 H 160/69 H 161/72 H Pulse Oximetry 04/18/18 03:00 04/18/18 04:00 04/18/18 05:00 Temperature Pulse Rate 71 65 66 Respiratory Rate 20 Blood Pressure 174/88 H 195/103 H 185/90 H Pulse Oximetry 98 04/18/18 06:00 04/18/18 07:00 04/18/18 07:10 Temperature 98.2 F Pulse Rate 75 75 80 Respiratory Rate 20 Blood Pressure 174/71 H 181/64 H 181/64 H Pulse Oximetry 97 04/18/18 08:00 04/18/18 08:10 04/18/18 08:48 Temperature Pulse Rate 80 94 H 84 Respiratory Rate 23 19 Blood Pressure 198/92 H 176/84 H Pulse Oximetry 97 96 04/18/18 09:00 04/18/18 11:55 Temperature Pulse Rate 88 72 Respiratory Rate 20 16 Blood Pressure 176/84 H Pulse Oximetry 98 Intake & Output 04/17/18 04/18/18 04/18/18 18:59 06:59 18:59 Intake Total 980 / 980 870 / 870 Output Total 220 / 220 950 / 950 Balance 760 / 760 -80 / -80 Weight 96.8 kg 96.8 kg Intake: IV 500 / 500 150 / 150 Nitroglycerin Drip Premix 50 mg 150 / 150 In 250 ml @ 5 MCG/MIN 1.5 mls/ hr IV.CONT TITRATE PRN Rx#: [id number] NS Inj 1,000 ML @ 84 mls/hr IV. 500 / 500 CONT .[id number] SAHARA Rx#: [id number] Oral 480 / 480 720 / 720 Output: Urine 220 / 220 950 / 950 Other: Date of Last Bowel Movement 04/16/18 04/18/18 04/18/18 # Bowel Movements 4 Weight On Admission 94.8 kg Result Diagrams: 04/18/18 05:50 04/18/18 05:50 Objective Remarks: GEN: Well-nourished well-developed male, anxious lethargic moderate distress HEENT: NCAT, pupils 3 mm and reactive bilaterally, right-sided facial droop present NECK: Trachea midline, no carotid bruits CARDIO: S1-S2 normal no murmurs PULM: Entry diminished bilateral bases, wheezes bilaterally. Patient having some difficulty clearing secretions ABD: Soft, non-distended, non-tender in all quadrants EXT: No peripheral edema SKIN: No rashes or lesions NEURO: Patient is awake alert but lethargic. Able to state his name. Significant right-sided facial droop. Motor strength 0/5 in RUE and RLE, and normal on left side. sensation intact to all extremities. Obviously with difficulty clearing secretions now Assessment and Plan - Assessment and Plan Plan: 72yM presenting with ataxia, right lower extremity weakness, and profound hypertension with left sided brainstem CVA. Now with clinically worsening stroke right hemiplegia and difficulty clearing secretions. 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 Morton -MRI brain repeat stat -CT/ CTA head and neck reviewed, no hemorrhage or flow-limiting lesions noted, repeat CT angiogram today unchanged -Patient presented with unclear time of onset so was not a candidate for tPA -Hold home dose of valium -Patient is hypertensive and bradycardic but has no signs of elevated intracranial pressure, -Permissive hypertension target systolic blood pressure less than 220/110 CARDIO: Hypertensive emergency -Profoundly hypertensive with relative bradycardia (HR in 30s-40s) -Please keep SBP <220/110 -ASA-change to rectal -Hold all p.o. hypertensive medications secondary to questionable airway protection -Use Cardene infusion if needed and IV labetalol as needed -cardiac monitor technician, ECHO PULM: Compromised airway protection due to stroke Respiratory insufficiency -Chest x-ray ABG stat -incentive spirometry -If clinically or radiologically has evidence of aspiration will proceed with endotracheal intubation GI: -Keep n.p.o., IV famotidine -Speech pathology evaluation requested : -No acute issues F/E/N: -Keep NPO due to clinical deterioration -Sliding scale -NS maintenance fluids ID: -No acute issues HEME: -No acute issues PROPHY: -Renzo, ELSIEs -IV famotidine for stress ulcer prophylaxis Counseling/ Coordination of Care: Total critical care time: 48 minutes. This includes examining the patient, gathering history from someone other than the patient (i.e., chart review), discussing the patient's care with other providers, managing the patient's blood pressure with vasoactive medications, ordering and interpreting radiology studies, ordering and interpreting laboratory studies, arranging for transfer to another campus, re-evaluation at frequent intervals, and documentation. Progress Note: Quality - Stroke Contraindication Not Initiating IV-Tpa: Contraindicated Symptom Onset Unknown: Yes Rehab Services Assessed: Physical therapy assessment
--- NOTE | 2018-04-18 12:01 | XR ---
EXAM DATE: 04/18/2018 11:59 AM EDT AGE/SEX: 72 years / Male INDICATIONS: Congestion. Cough. CLINICAL DATA: This is the patient's subsequent encounter. Patient reports that signs and symptoms h ave been present for 3 days and indicates a pain score of 4/10. MEDICAL/SURGICAL HISTORY: None. None. COMPARISON: [facility], CHEST 1V SINGLE AP, 04/16/2018. . FINDINGS: A single AP view of the chest demonstrates the lungs to be symmetrically aerated without evidence of mass, infiltrate or effusion. The cardiomediastinal contours are unremarkable. Osseous structures a re intact. CONCLUSION: Negative examination. Electronically signed by: Andrea Badillo MD 04/18/2018 12:00 PM EDT
--- NOTE | 2018-04-18 12:30 | MR ---
EXAM DATE: 04/18/2018 12:24 PM EDT AGE/SEX: 72 years / Male INDICATIONS: CVA. Right side weakness. CLINICAL DATA: This is the patient's initial encounter. Patient reports that signs and symptoms have been present for 1 day and indicates a pain score of 0/10. MEDICAL/SURGICAL HISTORY: Hypertension. None. COMPARISON: [facility], MR HEAD W/O CONTRAST, 04/17/2018. [facility], CT HEAD W/O CONTRAST, 04/18/2018. [facility], CT A HEAD W CONTRAST W 3D, 04/18/2018. . TECHNIQUE: Multiplanar, multisequence examination of the brain was performed without contrast. FINDINGS: Cerebrum: The ventricles are normal for age. No evidence of midline shift, mass lesion, hemorrhage or acute infarction. No extraaxial fluid collections are seen. The pituitary gland and suprasellar cistern are normal in configuration. White Matter: No significant signal abnormalities are seen in the white matter. Posterior Fossa: There again is some increased signal within the left cerebral peduncle could be an e volving stroke. Diffusion Imaging: No focal areas of restricted diffusion are seen. No evidence of acute infarction . Extracranial: The visualized portions of the orbits and paranasal sinuses are unremarkable. CONCLUSION: 1. Continued evolution of a small stroke in the left cerebral peduncle. No new masses identified. Electronically signed by: Andrea Badillo MD 04/18/2018 12:29 PM EDT
[2018-04-18 12:53] LABS: ABG Base Excess 6.3 mmol/L (-2-2); ABG PCO2 42 mmHg (38-42); ABG PO2 69 mmHg (61-120)
[2018-04-18] MEDS: Famotidine PF Inj 20 MG/2 ML Vial IV.PUSH SCH (21:47)
[2018-04-19] MEDS: Labetalol HCl Inj 100 MG/20 ML Vial IV.PUSH PRN ×2 (00:03→02:43)
[2018-04-19] MEDS ORDERED: Acetaminophen Inj 650 MG/65 ML VIAL IV.SIG ONE (01:04)
[2018-04-19 05:23] LABS: Baso # (Auto) 0.1 th/mm3 (0.0-0.2); Baso % (Auto) 0.4 % (0.0-2.0); Eos % (Auto) 0.1 % (0.0-4.0); Hematocrit 41.7 % (39.0-51.0); Hemoglobin 13.2 gm/dL (13.0-17.0); Lymph # (Auto) 1.6 th/mm3 (1.0-4.8); Lymph % (Auto) 11.9 % (9.0-44.0); Mean Corpuscular HGB Conc 31.7 % (32.0-36.0); Mean Corpuscular Hemoglobin 25.4 pg (27.0-34.0); Mean Corpuscular Volume 80.1 fL (80.0-100.0); Mean Platelet Volume 8.8 fL (7.0-11.0); Mono # (Auto) 1.2 th/mm3 (0.0-0.9); Mono % (Auto) 8.6 % (0.0-8.0); Neut # (Auto) 10.6 th/mm3 (1.8-7.7); Platelet Count 167 th/mm3 (150-450); Red Cell Distribution Width 13.8 % (11.6-17.2); White Blood Count 13.4 th/mm3 (4.0-11.0)
[2018-04-19] MEDS: niCARdipine Inj 25 MG in Sodium Chlor 0.9% Inj 240 ML IV.CONT PRN ×3 (05:32→13:32)
[2018-04-19] MEDS: Chlorhexidine Gluconate 2% 1 Pack (2 Cloths) TOPICAL SCH (05:33)
[2018-04-19 05:48] LABS: Calcium 8.3 mg/dL (8.5-10.1); Carbon Dioxide 28.6 meq/L (21.0-32.0); Magnesium 1.8 mg/dL (1.5-2.5); Phosphorus 3.3 mg/dL (2.5-4.9); Potassium 3.6 meq/L (3.5-5.1)
[2018-04-19 06:52] LABS: ABG PCO2 40 mmHg (38-42); ABG PO2 69 mmHg (61-120)
--- NOTE | 2018-04-19 07:02 | XR ---
EXAM DATE: 04/19/2018 6:58 AM EDT AGE/SEX: 72 years / Male INDICATIONS: Possible aspiration. CLINICAL DATA: This is the patient's subsequent encounter. Patient reports that signs and symptoms h ave been present for 4 - 6 days and indicates a pain score of 0/10. MEDICAL/SURGICAL HISTORY: Stroke. None. COMPARISON: [facility], CHEST 1V SINGLE AP, 04/18/2018. . FINDINGS: AP upright portable view of the chest demonstrates airspace consolidation involving the right lower l obe. The right upper lobe and left hemithorax are clear. Heart size is normal with mild tortuosity of the thoracic aorta. Osseous structures are unremarkable. CONCLUSION: Right lower lobe airspace consolidation consistent with aspiration. Electronically signed by: Rajwinder Haney MD 04/19/2018 7:01 AM EDT
--- NOTE | 2018-04-19 07:07 | P.PNCC ---
Subjective Subjective Remarks/Hospital Course: 72yM presenting to the ED overnight on 04/16/18 with right leg weakness/ numbness and unsteady gait. The patient states that he woke up yesterday morning with difficulty moving his right leg and feeling "off balance". He reports that the symptoms did not improve over the course of the day, so he went to the emergency department, where he was found to have profound hypertension. The patient says that he has a history of hypertension and "white coat syndrome" but has never had a hypertensive emergency in the past. He denies facial droop, slurred speech, aphasia, difficulty swallowing, arm weakness/ numbness, or confusion. He has no history of CVA/ TIA in the past. H/O HTN, diabetes, anxiety SUBJ 04/18/18: Patient was transferred to [facility] today for deteriorating clinical condition. I evaluated patient in the ICU. Currently has significant right facial droop worsening hemiplegia unable to move right side even though sensation appears to be preserved. 0 out of 5 power on the right upper and lower extremity. Patient also has difficulty clearing secretions and has bilateral wheezing. CT did not show any significant change an MRI is pending at this time. I explained to the family including about acute risk of deterioration and need for airway protection. They expressed good understanding SUBJECTIVE: 04/19: T-max 102. Tachycardic. Minimal to no movement to right upper lower extremity. Likely aspirating. Discussed with in detail 30 minutes benefits and risks of intubation. She will bring antibiotic eyedrops for left eye today. Patient currently in her percent nonrebreather. She wishes to initiate antibiotic therapy first but aware that high risk of intubation. . Objective Vital Signs / I&O: Vital Signs 04/18/18 07:00 04/18/18 07:10 04/18/18 08:00 Temperature 98.2 F Pulse Rate 75 80 80 Respiratory Rate 20 Blood Pressure 181/64 H 181/64 H Pulse Oximetry 97 04/18/18 08:10 04/18/18 08:48 04/18/18 09:00 Temperature Pulse Rate 94 H 84 88 Respiratory Rate 23 19 20 Blood Pressure 198/92 H 176/84 H 176/84 H Pulse Oximetry 97 96 98 04/18/18 11:55 04/18/18 12:00 04/18/18 15:46 Temperature 98.2 F Pulse Rate 72 68 70 Respiratory Rate 16 24 24 Blood Pressure 221/91 H Pulse Oximetry 100 04/18/18 16:00 04/18/18 19:27 04/18/18 20:00 Temperature 98.2 F 100.1 F H Pulse Rate 74 75 88 Respiratory Rate 18 18 22 Blood Pressure 174/74 H 205/87 H Pulse Oximetry 96 95 96 04/19/18 00:00 04/19/18 00:08 04/19/18 02:44 Temperature 99.9 F H Pulse Rate 88 80 80 Respiratory Rate 23 18 22 Blood Pressure 200/86 H Pulse Oximetry 04/19/18 03:22 04/19/18 03:31 04/19/18 04:00 Temperature 99.1 F Pulse Rate 106 H Respiratory Rate 24 Blood Pressure 195/88 H Pulse Oximetry 92 L 93 L Intake & Output 04/18/18 04/18/18 04/19/18 06:59 18:59 06:59 Intake Total 870 / 870 1065 / 1065 Output Total 950 / 950 875 / 875 Balance -80 / -80 -875 / -875 1065 / 1065 Weight 96.8 kg Intake: IV 150 / 150 1065 / 1065 NS + KCl 20 mEq Inj 1,000 ML @ 1000 / 1000 84 mls/hr IV.CONT .[id number] [facility] Rx#:[id number] Nitroglycerin Drip Premix 50 mg 150 / 150 In 250 ml @ 5 MCG/MIN 1.5 mls/ hr IV.CONT TITRATE PRN Rx#: [id number] Ofirmev Inj 650 mg In 65 ml @ 65 / 65 400 mls/hr IV.SIG ONCE ONE Rx#: [id number] Oral 720 / 720 Output: Urine 950 / 950 Urine Amount (Catheter) 875 / 875 Condom 875 / 875 Other: Date of Last Bowel Movement 04/18/18 04/18/18 04/18/18 # Bowel Movements 4 1 Result Diagrams: 04/19/18 03:52 04/19/18 03:52 Imaging: Chest X-Ray 04/16/18 20:44 CONCLUSION: Negative examination. Head CT 04/16/18 20:45 CONCLUSION: 1. 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 2. No acute infarct, acute hemorrhage, midline shift or extra-axial fluid collections. . Head CTA 04/16/18 22:22 CONCLUSION: 1. Atretic proximal right A1 segment. 2. Otherwise negative CTA of the [place] of [place]. Neck CTA 04/16/18 22:22 CONCLUSION: 1. Short segment calcified and noncalcified plaque in the proximal left internal carotid artery causing less than 40% stenosis. 2. Normal luminal diameter of the right carotid system. 3. Right dominant vertebral system. Head MRI 04/17/18 00:00 CONCLUSION: 1. Restricted diffusion left cerebellar peduncle. 2. The basilar artery appears patent. Head CTA 04/18/18 00:00 CONCLUSION: 1. The vertebral arteries dominant contributor the majority of flow to the basilar circulation. 2. Mild narrowing involving the M2 segment origin on the right. Head MRI 04/18/18 00:00 CONCLUSION: 1. Continued evolution of a small stroke in the left cerebral peduncle. No new masses identified. Neck CTA 04/18/18 00:00 CONCLUSION: 1. The right vertebral artery is dominant. No filling defect or narrowing is identified. Head CT 04/18/18 06:35 CONCLUSION: 1. Small 8 mm hypodensity in the left cerebral peduncle consistent with a small stroke. No evidence of hemorrhage. . Chest X-Ray 04/18/18 11:38 CONCLUSION: Negative examination. Objective Remarks: GEN: Well-nourished well-developed male, currently resting in bed on 100% nonrebreather HEENT: NCAT, pupils 3 mm and reactive bilaterally, greenish exudate from left eye, right-sided facial droop present NECK: Trachea midline, no carotid bruits CARDIO: Tachycardic. S1-S2 normal no murmurs PULM: Entry diminished bilateral bases right greater than left, wheezes bilaterally. Patient having difficulty clearing secretions ABD: Soft, protuberant, non-tender in all quadrants EXT: No significant peripheral edema SKIN: No rashes or lesions NEURO: Patient is awake alert but lethargic. Able to state his name. Significant right-sided facial droop. Motor strength 0/5 in RUE and RLE, and normal 5/5 on left side. sensation intact to all extremities. 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 Morton -MRI brain revealed evolving left cerebellar peduncle CVA 8 mm -CT/ CTA head and neck reviewed, no hemorrhage or flow-limiting lesions noted, right M2 50% stenosis. Repeat CT angiogram 04/18 unchanged -Patient presented with unclear time of onset so was not a candidate for tPA -Hold home dose of diazepam 5 mg daily -Patient is hypertensive and tachycardic but has no signs of elevated intracranial pressure, -Permissive hypertension can be lessened somewhat. Goal [id number] CARDIO: Hypertensive emergency History of essential hypertension -Profoundly hypertensive with relative bradycardia (HR in 30s-40s) now tachycardic -Continue to keep SBP <220/110 -ASA-change to rectal 300 mg daily -Hold all p.o. hypertensive medications secondary to questionable airway protection. At home on clonidine 0.3 mg twice daily and enalapril 20 mg daily -Use nicardipine infusion, IV enalaprilat, IV hydralazine and IV labetalol as needed -monitoring and evaluation advisor, -ECHO revealed EF 55-60%. -Cholesterol 140. LDL 83. PULM: Compromised airway protection due to stroke Acute respiratory insufficiency -Chest x-ray ABG today via right lower lobe infiltrate. Currently on 100percent nonrebreather. -incentive spirometry every hour while awake -NT suctioning -If clinically worsens will require endotracheal intubation. I did discuss with at length versus she wants to be made aware prior to any intervention. ABG this a.m. revealed pH of 7.45. PCO2 of 40. PO2 of 70. Bicarbonate of 27. Base index of 3.. Chest x-ray reveals right lower lobe infiltrate likely aspiration GI: -Keep n.p.o., IV famotidine -Speech pathology evaluation continue -Glycerin suppository daily for bowel regimen /RENAL: -No acute issues -Creatinine currently within normal limits -Monitor urine output -Accurate I's and O's F/E/N: -Keep NPO due to clinical deterioration -Sliding scale -NS maintenance fluids currently with normal saline 84 cc an hour - We will replace potassium magnesium today see orders ID: Likely aspiration pneumonia Will start on antibiotics with fever, tachycardia and leukocytosis and infiltrate in right lower lobe Patient's said adverse reaction to penicillin so we will start on vancomycin, piperacillin/tazobactam and azithromycin day #1 Blood cultures 2, sputum and UA ordered / HEME: Leukocytosis -Monitor CBC daily follow trends. ENDO: DMII Hemoglobin A1c 9.0 Holding home Novulog NPH 70/30 15 units twice daily and sliding scale insulin Novolin R and metformin 1000 mg twice daily Continue sliding scale insulin Accu-Cheks with Novolin R every 6 hours MSK: Elevated BMI Weight loss encouraged PROPHY: -Enoxaparin, SCDs -IV famotidine for stress ulcer prophylaxis 35 minutes critical care time Progress Note: Quality - Stroke Contraindication Not Initiating IV-Tpa: Contraindicated Symptom Onset Unknown: Yes Rehab Services Assessed: Physical therapy assessment
[2018-04-19] MEDS ORDERED: Acetaminophen Inj 650 MG/65 ML VIAL IV.SIG PRN (07:08)
[2018-04-19] MEDS ORDERED: hydrALAZINE HCl Inj 20 MG/ML Vial IV.PUSH PRN (07:36)
[2018-04-19] MEDS ORDERED: Vancomycin Consult Pharmacy OTHER PRN (07:41)
[2018-04-19] MEDS: Famotidine PF Inj 20 MG/2 ML Vial IV.PUSH SCH ×2 (08:56→20:43)
[2018-04-19] MEDS: Enoxaparin Inj 40 MG/0.4 ML Syringe SQ SCH (08:56)
[2018-04-19] MEDS: Mag Sulf 1 gm/100 ml Premix 100 ML IV.SIG SCH ×2 (08:56→11:54)
[2018-04-19] MEDS: Glycerin Adult 2 GM Supp RECTAL SCH (08:57)
[2018-04-19] MEDS: Piperacil/Tazo 4.5 GM Premix 4.5 GM/100 ML BAG IV.SIG SCH ×3 (08:57→19:38)
[2018-04-19] MEDS ORDERED: Aztreonam Inj 2 GM in Sodium Chloride 0.9% Inj 100 ML IV.SIG SCH (09:00)
[2018-04-19] MEDS ORDERED: Aspirin 300 MG Supp RECTAL SCH (09:00)
[2018-04-19] MEDS: Potassium Chlor 10 mEq Premix 10 MEQ/100 ML PIGGYBACK IV.SIG SCH ×3 (09:07→14:30)
[2018-04-19] MEDS: Insulin NovoLIN Regular Correctional Sugar Inj SQ SCH ×4 (10:15→21:01)
[2018-04-19] MEDS: Insulin Aspart Prot 70/30 1,000 UNITS/10 ML Vial SQ SCH ×2 (10:15→18:05)
[2018-04-19] MEDS: Azithromycin Inj 500 MG in Sodium Chlor 0.9% Inj 250 ML IV.SIG SCH (10:15)
[2018-04-19] MEDS ORDERED: Etomidate Inj 40 MG/20 ML Vial IV.PUSH ONE ×2 (10:36→10:45)
[2018-04-19] MEDS ORDERED: fentaNYL 10 mcg/mL Premix Drip 2,500 MCG/250 ML BAG IV.SIG PRN (10:40)
--- NOTE | 2018-04-19 11:20 | P.PCN ---
Date of procedure: 04/19/18 Pre-op diagnosis: Acute respiratory failure Post-op diagnosis: same Procedure: DATE: 04/19/2018 PROCEDURE: Orotracheal intubation INDICATION: Acute respiratory failure/aspiration DETAILS OF PROCEDURE The patient was placed in optimal position and preoxygenated with 100% FiO2 via bag valve mask. At the start oxygen saturation was 100%. The patient was administered 40 milligrams etomidate IV and 50 milligrams rocuronium IV. I entered the oropharynx with a size 4 laryngoscope blade and obtained a grade 2 view of the airway. On single attempt a size 8.0 cuffed endotracheal tube was passed through the vocal cords. Correct tube location was confirmed with end tidal CO2 detector and by auscultating over bilateral lung clement. The endotracheal tube was secured with adhesive tape at a depth of 24 cm at the lips. The patient was connected to the ventilator. The patient tolerated the procedure well without any apparent complications. Oxygen saturations were maintained greater than 95% all times. STAT chest x-ray pending at time of dictation.
[2018-04-19] MEDS ORDERED: amLODIPine 5 MG Tablet PO ONE (11:21)
[2018-04-19] MEDS: Propofol 1000 mg/100 ml Inj 1,000 MG/100 ML BOTTLE IV.CONT PRN ×2 (11:30→16:00)
[2018-04-19] MEDS: Hypromellose 0.3% Opth Gel 10 GM Bottle EACH EYE SCH ×3 (11:54→20:43)
[2018-04-19 12:09] LABS: ABG Base Excess 0.6 mmol/L (-2-2); ABG PCO2 46 mmHg (38-42); ABG PO2 363 mmHg (61-120)
--- NOTE | 2018-04-19 12:12 | P.PN ---
Subjective Interval history: pt's respiratory status worsened and needed intubation.Now intubated sedated. Physical Exam Vital signs: Vital Signs 04/18/18 15:46 04/18/18 16:00 04/18/18 19:27 Temperature 98.2 F Pulse Rate 70 74 75 Respiratory Rate 24 18 18 Blood Pressure 174/74 H Pulse Oximetry 96 95 04/18/18 20:00 04/19/18 00:00 04/19/18 00:08 Temperature 100.1 F H 99.9 F H Pulse Rate 88 88 80 Respiratory Rate 22 23 18 Blood Pressure 205/87 H 200/86 H Pulse Oximetry 96 04/19/18 02:44 04/19/18 03:22 04/19/18 03:31 Temperature Pulse Rate 80 Respiratory Rate 22 Blood Pressure Pulse Oximetry 92 L 93 L 04/19/18 04:00 04/19/18 05:00 04/19/18 07:46 Temperature 99.1 F Pulse Rate 106 H 114 H Respiratory Rate 24 26 H Blood Pressure 195/88 H Pulse Oximetry 93 L 100 04/19/18 11:22 Temperature Pulse Rate Respiratory Rate 16 Blood Pressure Pulse Oximetry 100 Intake & Output 04/18/18 04/19/18 04/19/18 18:59 06:59 18:59 Intake Total 1065 / 1065 450 / 450 Output Total 875 / 875 1350 / 1350 Balance -875 / -875 -285 / -285 450 / 450 Weight 96.8 kg Intake: IV 1065 / 1065 450 / 450 NS + KCl 20 mEq Inj 1,000 ML @ 1000 / 1000 84 mls/hr IV.CONT .[id number] [facility] Rx#:[id number] Cardene Inj 25 MG In NS Inj 240 250 / 250 ML @ 5 MG/HR 50 mls/hr IV.CONT TITRATE PRN Rx#:[id number] Ofirmev Inj 650 mg In 65 ml @ 65 / 65 400 mls/hr IV.SIG ONCE ONE Rx#: [id number] Magnesium Sulfate 1 gm/D5W 100 100 / 100 ml Premix 100 ML @ 100 mls/hr IV.SIG Q1H [facility] Rx#:[id number] KCl 10 mEq Premix Inj 10 meq In 100 / 100 100 ml @ 100 mls/hr IV.SIG Q1H [facility] Rx#:[id number] Output: Urine Amount (Catheter) 875 / 875 1350 / 1350 Condom 875 / 875 1350 / 1350 Other: Date of Last Bowel Movement 04/18/18 04/18/18 # Bowel Movements 1 Narrative: unable to examine now sedated intubated. - Routine HEENT Exam Head: Present: normocephalic, atraumatic Eye: Present: EOMI - Detailed Neurological Exam: Coma Scale Eye Opening: None Verbal Response: None Motor Response: None [place] Coma Scale Total: 3 - Urinary Catheter Management Condom Cath placed during this visit: no Results - Labs CBC & Chem 7: 04/19/18 03:52 04/19/18 03:52 Laboratory Results - last 24 hr 04/18/18 04/18/18 04/18/18 10:50 12:44 16:53 WBC RBC Hgb Hct MCV MCH MCHC RDW Plt Count MPV Neut % (Auto) Lymph % (Auto) [place] % (Auto) Eos % (Auto) Baso % (Auto) Neut # (Auto) Lymph # (Auto) [place] # (Auto) Eos # (Auto) Baso # (Auto) WBC Differential Differential Comment Puncture Site Right radial Patient Temperature 98.6 O2 Saturation 92 ABG pH 7.47 H ABG pCO2 42 ABG pO2 69 ABG HCO3 30 H ABG O2 Content 17.4 ABG Base Excess 6.3 H ABG Methemoglobin 1.0 Tu Test Present Hemoglobin 13.4 Carboxyhemoglobin 1.2 O2 Delivery Device Liter Flow Inspired O2 21 Critical Value No Sodium Potassium Chloride Carbon Dioxide Anion Gap BUN Creatinine Estimated GFR POC Glucose 194 H Random Glucose Calcium Phosphorus Magnesium Nasal Screen MRSA (PCR) Not detected 04/18/18 04/19/18 04/19/18 21:42 03:52 03:52 WBC 13.4 H RBC 5.20 Hgb 13.2 Hct 41.7 MCV 80.1 MCH 25.4 L MCHC 31.7 L RDW 13.8 Plt Count 167 MPV 8.8 Neut % (Auto) 79.0 H Lymph % (Auto) 11.9 [place] % (Auto) 8.6 H Eos % (Auto) 0.1 Baso % (Auto) 0.4 Neut # (Auto) 10.6 H Lymph # (Auto) 1.6 [place] # (Auto) 1.2 H Eos # (Auto) 0.0 Baso # (Auto) 0.1 WBC Differential . Differential Comment Auto diff final Puncture Site Patient Temperature O2 Saturation ABG pH ABG pCO2 ABG pO2 ABG HCO3 ABG O2 Content ABG Base Excess ABG Methemoglobin Tu Test Hemoglobin Carboxyhemoglobin O2 Delivery Device Liter Flow Inspired O2 Critical Value Sodium 142 Potassium 3.6 Chloride 104 Carbon Dioxide 28.6 Anion Gap 9 BUN 10 Creatinine 1.12 Estimated GFR 64 L POC Glucose 217 H Random Glucose 224 H Calcium 8.3 L Phosphorus 3.3 Magnesium 1.8 Nasal Screen MRSA (PCR) 04/19/18 04/19/18 04/19/18 05:55 06:43 09:21 WBC RBC Hgb Hct MCV MCH MCHC RDW Plt Count MPV Neut % (Auto) Lymph % (Auto) [place] % (Auto) Eos % (Auto) Baso % (Auto) Neut # (Auto) Lymph # (Auto) [place] # (Auto) Eos # (Auto) Baso # (Auto) WBC Differential Differential Comment Puncture Site Right radial Patient Temperature 98.6 O2 Saturation 92 ABG pH 7.45 H ABG pCO2 40 ABG pO2 69 ABG HCO3 27 H ABG O2 Content 18.9 ABG Base Excess 3.0 H ABG Methemoglobin 1.1 Ut Test Present Hemoglobin 14.6 Carboxyhemoglobin 1.1 O2 Delivery Device Non-rebreathing mask Liter Flow 15.00 Inspired O2 100 Critical Value No Sodium Potassium Chloride Carbon Dioxide Anion Gap BUN Creatinine Estimated GFR POC Glucose 231 H 275 H Random Glucose Calcium Phosphorus Magnesium Nasal Screen MRSA (PCR) - Imaging Impressions Head MRI 04/18/18 00:00 CONCLUSION: 1. Continued evolution of a small stroke in the left cerebral peduncle. No new masses identified. Chest X-Ray 04/19/18 06:34 CONCLUSION: Right lower lobe airspace consolidation consistent with aspiration. Assessment and Plan - Plan intub sedated cont asa qd bp control but avoid sbp<140. echo will need rehab consult placed already pt-ot-st scds lovenox Progress Note: Quality - Stroke Contraindication Not Initiating IV-Tpa: Contraindicated Symptom Onset Unknown: Yes Rehab Services Assessed: Physical therapy assessment
--- NOTE | 2018-04-19 12:14 | XR ---
EXAM DATE: 04/19/2018 12:09 PM EDT AGE/SEX: 72 years / Male INDICATIONS: Status post intubation. CLINICAL DATA: This is the patient's initial encounter. Patient reports that signs and symptoms have been present for 1 day and indicates a pain score of Nonresponsive. MEDICAL/SURGICAL HISTORY: Non-responsive. Non-responsive. COMPARISON: [facility] [place]ST 1V SINGLE AP, 04/19/2018. . FINDINGS: The patient is status post intubation with the endotracheal tube identified just beyond the level of the clavicles. There is progressive airspace consolidation involving the right hemithorax with loss o f visualization of the left hemidiaphragm. Hazy increased density likely reflecting a pleural effusio n. The left hemithorax is clear. CONCLUSION: Status post intubation with overall worsening lung exam within the right hemithorax. This likely refl ects both pleural fluid as well as airspace consolidation. Electronically signed by: Rajwinder Haney MD 04/19/2018 12:13 PM EDT
--- NOTE | 2018-04-19 13:17 | P.DIET ---
Nutritional Evaluation Type of nutrition evaluation: initial Nutrition consult regarding: Tube Feeding [place] [facility] [place] - [place] CVA, Hypertensive Emergency - Objective [place] body weight: 65 kg % IBW: 147 Body Weight Used for Calculations: IBW Energy Needs - Lower Range (kCal/kg): 24 Energy Needs - Upper Range (kCal/kg): 28 Lower Limit kCal/kg (kCals): 1,560 Upper Limit kCal/kg (kCals): 1,820 Lower Limit Protein Factor (Grams per Kg): 1.5 Upper Limit Protein Factor (Grams per Kg): 2 Lower Protein Needs (Protein): 98 Upper Protein Needs (Protein): 130 Dietitian Reviewed in Medical Record: Current diet, Curent medications, Intake & Output, Labs, Medical history, Tube feeding Diet Order: TF only Objective Comments: PMH: Anxiety, HTN, DM, sinus bradycardia Labs include: Cr 1.12, Glucose 224, POC Glucose 217, 231, 275 Meds include: Fentanyl, Propofol (just started) +1BM Assessment Assessment: Pt at nutritional risk r/t current clinical status. Pt intubated and sedated with propofol/fentanyl this morning. Pt with small stroke in the left cerebral peduncle. Nutritional needs as assessed above. TF Glucerna 1.5 per MD. A goal rate of 50ml/hr is necessary to meet pt's nutritional needs providing 1800kcals , 99gms protein and 911mls free water. Will monitor TF tolerance, clinical course. Recommendations: TF Glucerna 1.5 with goal rate 50ml/hr Dietitian to Monitor: Lab values, Glucose level, Intake & Output, Tube feeding tolerance, Weight change, Medical course
[2018-04-19] MEDS: Oral Hygiene Kit OROPHARYNG SCH ×2 (13:19→15:44)
[2018-04-19] MEDS: Vancomycin Inj 2,000 MG in Sodium Chlor 0.9% Inj 500 ML IV.SIG SCH (13:33)
[2018-04-19 17:54] LABS: Bacteria,Urine Few /hpf; Bilirubin,Urine Negative (Negative); Clarity,Urine Clear (Clear); Color,Urine Yellow (Yellw/Straw); Glucose,Urine (UA) 500 or Greater mg/dL (Negative); Leukocyte Esterase,Urine Negative (Negative); Nitrite,Urine Negative (Negative); Specific Gravity,Urine 1.014 (1.002-1.035); Squamous Epithelial Cell,Urine <1 /hpf (0-5)
[2018-04-19] MEDS: Chlorhexidine 0.12% Oral Kit 15 ML UDC OROPHARYNG SCH (19:39)
[2018-04-20] MEDS: Oral Hygiene Kit OROPHARYNG SCH ×4 (00:37→17:27)
[2018-04-20] MEDS: Piperacil/Tazo 4.5 GM Premix 4.5 GM/100 ML BAG IV.SIG SCH ×4 (01:07→20:01)
[2018-04-20] MEDS: Propofol 1000 mg/100 ml Inj 1,000 MG/100 ML BOTTLE IV.CONT PRN ×3 (03:37→20:04)
[2018-04-20] MEDS: Chlorhexidine Gluconate 2% 1 Pack (2 Cloths) TOPICAL SCH (04:50)
[2018-04-20 04:56] LABS: Baso # (Auto) 0.1 th/mm3 (0.0-0.2); Baso % (Auto) 0.4 % (0.0-2.0); Eos # (Auto) 0.1 th/mm3 (0.0-0.4); Eos % (Auto) 0.5 % (0.0-4.0); Hematocrit 39.4 % (39.0-51.0); Hemoglobin 12.5 gm/dL (13.0-17.0); Lymph # (Auto) 2.2 th/mm3 (1.0-4.8); Mean Corpuscular HGB Conc 31.8 % (32.0-36.0); Mean Corpuscular Hemoglobin 25.6 pg (27.0-34.0); Mean Corpuscular Volume 80.6 fL (80.0-100.0); Mean Platelet Volume 8.9 fL (7.0-11.0); Mono # (Auto) 1.2 th/mm3 (0.0-0.9); Mono % (Auto) 8.1 % (0.0-8.0); Neut # (Auto) 10.9 th/mm3 (1.8-7.7); Platelet Count 133 th/mm3 (150-450); Red Blood Count 4.89 mil/mm3 (4.50-5.90); Red Cell Distribution Width 13.8 % (11.6-17.2); White Blood Count 14.3 th/mm3 (4.0-11.0)
--- NOTE | 2018-04-20 04:56 | CT ---
EXAM DATE: 04/20/2018 4:52 AM EDT AGE/SEX: 72 years / Male INDICATIONS: F/U stroke. CLINICAL DATA: This is the patient's subsequent encounter. Patient reports that signs and symptoms h ave been present for 2 days and indicates a pain score of Nonresponsive. MEDICAL/SURGICAL HISTORY: Non-responsive. Non-responsive. RADIATION DOSE: 56.35 CTDI (mGy) COMPARISON: . TECHNIQUE: CT of the head without contrast. Using automated exposure control and adjustment of the mA and/or kV according to patient size, radiation dose was kept as low as reasonably achievable to ob tain optimal diagnostic quality images. DICOM format image data is available electronically for revi ew and comparison. FINDINGS: Cerebrum: The ventricles are normal for age. Evolving infarct of the left brain stem. Posterior Fossa: The cerebellum and brainstem are intact. The 4th ventricle is midline. The cerebe llopontine angle is unremarkable. Extracranial: The visualized portion of the orbits is intact. Skull: The calvaria is intact. No evidence of skull fracture. CONCLUSION: 1. Evolving infarct in the upper left brain stem. No new hemorrhage or mass effect. No acute finding s. . Electronically signed by: Angel Farrell MD 04/20/2018 4:55 AM EDT
[2018-04-20 05:21] LABS: Alanine Aminotransferase 19 U/L (12-78); Albumin 2.5 g/dL (3.4-5.0); Alkaline Phosphatase 57 U/L (45-117); Anion Gap 8 meq/L (5-15); Aspartate Aminotransferase 20 U/L (15-37); Blood Urea Nitrogen 20 mg/dL (7-18); Calcium 7.9 mg/dL (8.5-10.1); Carbon Dioxide 28.1 meq/L (21.0-32.0); Chloride 106 meq/L (98-107); Glomerular Filtration Rate 45 mL/min (>89); Glucose,Random 254 mg/dL (74-106); Magnesium 2.5 mg/dL (1.5-2.5); Phosphorus 2.2 mg/dL (2.5-4.9); Potassium 4.3 meq/L (3.5-5.1); Sodium 142 meq/L (136-145); Total Protein 6.6 g/dL (6.4-8.2)
--- NOTE | 2018-04-20 06:44 | P.PNCC ---
Subjective Subjective Remarks/Hospital Course: 72yM presenting to the ED overnight on 04/16/18 with right leg weakness/ numbness and unsteady gait. The patient states that he woke up yesterday morning with difficulty moving his right leg and feeling "off balance". He reports that the symptoms did not improve over the course of the day, so he went to the emergency department, where he was found to have profound hypertension. The patient says that he has a history of hypertension and "white coat syndrome" but has never had a hypertensive emergency in the past. He denies facial droop, slurred speech, aphasia, difficulty swallowing, arm weakness/ numbness, or confusion. He has no history of CVA/ TIA in the past. H/O HTN, diabetes, anxiety SUBJ 04/18/18: Patient was transferred to [facility] today for deteriorating clinical condition. I evaluated patient in the ICU. Currently has significant right facial droop worsening hemiplegia unable to move right side even though sensation appears to be preserved. 0 out of 5 power on the right upper and lower extremity. Patient also has difficulty clearing secretions and has bilateral wheezing. CT did not show any significant change an MRI is pending at this time. I explained to the family including about acute risk of deterioration and need for airway protection. They expressed good understanding SUBJECTIVE: 04/19: T-max 102. Tachycardic. Minimal to no movement to right upper lower extremity. Likely aspirating. Discussed with in detail 30 minutes benefits and risks of intubation. She will bring antibiotic eyedrops for left eye today. Patient currently in 100 percent nonrebreather. She wishes to initiate antibiotic therapy first but aware that high risk of intubation. 04/20 patient now intubated sedated. Clearly aspirated yesterday and now with significant right lower lobe consolidation. Sputum culture is pending. CT head today shows evolving left upper brainstem infarct. . Objective Vital Signs / I&O: Vital Signs 04/19/18 07:46 04/19/18 08:00 04/19/18 11:22 Temperature 102.2 F H Pulse Rate 114 H 138 H Respiratory Rate 26 H 29 H 16 Blood Pressure 218/94 H Pulse Oximetry 100 100 04/19/18 12:00 04/19/18 12:13 04/19/18 15:59 Temperature 99.6 F Pulse Rate 100 H 97 H 101 H Respiratory Rate 16 16 16 Blood Pressure 200/100 H Pulse Oximetry 95 04/19/18 16:00 04/19/18 19:00 04/19/18 20:01 Temperature 99.2 F Pulse Rate 100 H 88 Respiratory Rate 17 16 Blood Pressure 142/72 H Pulse Oximetry 96 99 99 04/19/18 23:56 04/20/18 03:13 Temperature Pulse Rate 80 77 Respiratory Rate 16 16 Blood Pressure Pulse Oximetry 99 99 Intake & Output 04/19/18 04/19/18 04/20/18 06:59 18:59 06:59 Intake Total 1065 / 1065 3049 / 3049 1500 / 1500 Output Total 1350 / 1350 1325 / 1325 Balance -285 / -285 1724 / 1724 1500 / 1500 Weight 96.8 kg Intake: IV 1065 / 1065 2870 / 2870 1500 / 1500 NS + KCl 20 mEq Inj 1,000 ML @ 1000 / 1000 1000 / 1000 1000 / 1000 30 mls/hr IV.CONT .Q24H [facility] Rx# :[id number] Diprivan 1000 mg/100 ml Inj 1, 100 / 100 100 / 100 000 mg In 100 ml @ 5 MCG/KG/MIN 2.904 mls/hr IV.CONT TITRATE PRN Rx#:[id number] Cardene Inj 25 MG In NS Inj 240 500 / 500 ML @ 5 MG/HR 50 mls/hr IV.CONT TITRATE PRN Rx#:[id number] Ofirmev Inj 650 mg In 65 ml @ 65 / 65 400 mls/hr IV.SIG ONCE ONE Rx#: [id number] Azithromycin Inj 500 MG In NS 250 / 250 Inj 250 ML @ 250 mls/hr IV.SIG Q24H [facility] Rx#:[id number] Magnesium Sulfate 1 gm/D5W 100 100 / 100 100 / 100 ml Premix 100 ML @ 100 mls/hr IV.SIG Q1H [facility] Rx#:[id number] Zosyn 4.5 GM Premix 4.5 gm In 200 / 200 200 / 200 100 ml @ 200 mls/hr IV.SIG Q6H [facility] Rx#:[id number] KCl 10 mEq Premix Inj 10 meq In 200 / 200 100 / 100 100 ml @ 100 mls/hr IV.SIG Q1H [facility] Rx#:[id number] Vancomycin Inj 2,000 MG In NS 520 / 520 Inj 500 ML @ 250 mls/hr IV.SIG Q24H [facility] Rx#:[id number] Tube Feeding 59 / 59 Tube Irrigant 120 / 120 Output: Urine Amount (Catheter) 1350 / 1350 1325 / 1325 Condom 1350 / 1350 1325 / 1325 Gastric Drainage 0 / 0 Orogastric Tube 0 / 0 Other: Date of Last Bowel Movement 04/18/18 04/19/18 04/19/18 # Bowel Movements 1 Result Diagrams: 04/20/18 03:39 04/20/18 03:39 Objective Remarks: GEN: Well-nourished well-developed male, currently intubated sedated with propofol and fentanyl HEENT: NCAT, pupils 3 mm and reactive bilaterally, greenish exudate from left eye, right-sided facial droop present NECK: Trachea midline, no carotid bruits CARDIO: S1-S2 normal no murmurs PULM: Entry diminished bilateral bases right greater than left, wheezes bilaterally. Orotracheally intubated ABD: Soft, protuberant, non-tender in all quadrants EXT: No significant peripheral edema SKIN: No rashes or lesions NEURO: Patient is sedated. Right-sided facial droop. 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 Morton -MRI brain revealed evolving left cerebellar peduncle CVA 8 mm, CT today a.m. again shows evolving left brainstem stroke -CT/ CTA head and neck reviewed, no hemorrhage or flow-limiting lesions noted, right M2 50% stenosis. Repeat CT angiogram 04/18 unchanged -Patient presented with unclear time of onset so was not a candidate for tPA -Hold home dose of diazepam 5 mg daily -Patient is hypertensive and tachycardic but has no signs of elevated intracranial pressure, -Permissive hypertension can be lessened somewhat. Goal [id number], reduce to 140 -180 CARDIO: Hypertensive emergency History of essential hypertension -Profoundly hypertensive with relative bradycardia (HR in 30s-40s) now tachycardic -Continue to keep SBP <140-180 -ASA 81 daily -At home on clonidine 0.3 mg twice daily and enalapril 20 mg daily -Use nicardipine infusion, IV enalaprilat, IV hydralazine and IV labetalol as needed -school lunch monitor, -ECHO revealed EF 55-60%. -Cholesterol 140. LDL 83. Need statins due to stroke PULM: Acute hypoxemic respiratory failure Aspiration pneumonia right lower lobe Compromised airway protection due to stroke -Chest x-ray right lower lobe infiltrate. -Intubated 04/19/2018 for lack of airway protection and hypoxemic respiratory failure -DuoNeb every 4 hours scheduled and as needed -Broad-spectrum antibiotics with Zosyn and azithromycin and vancomycin GI: -Tube feeds with Glucerna, IV famotidine -Speech pathology evaluation continue -Glycerin suppository daily for bowel regimen /RENAL: Acute kidney injury -Continue careful hydration with normal saline at 84 mL/h -Creatinine currently within normal limits -Monitor urine output -Accurate I's and O's -Electrolyte replacement per protocol ID: Aspiration pneumonia Severe sepsis Currently on on vancomycin, piperacillin/tazobactam and azithromycin day #2 Follow-up blood cultures 2, sputum and UA ordered 04/19 HEME: Leukocytosis -Monitor CBC daily follow trends. ENDO: DMII Hemoglobin A1c 9.0 Holding home Novulog NPH 70/30 15 units twice daily and sliding scale insulin Novolin R and metformin 1000 mg twice daily Continue sliding scale insulin Accu-Cheks with Novolin R every 6 hours Add Levemir 5 units every 12 PROPHY: -Enoxaparin, SCDs -IV famotidine for stress ulcer prophylaxis 35 minutes critical care time Code Status: Full Progress Note: Quality - Stroke Contraindication Not Initiating IV-Tpa: Contraindicated Symptom Onset Unknown: Yes Rehab Services Assessed: Physical therapy assessment
[2018-04-20] MEDS ORDERED: Insulin Aspart Prot 70/30 1,000 UNITS/10 ML Vial SQ SCH (07:05)
--- NOTE | 2018-04-20 07:09 | XR ---
EXAM DATE: 04/20/2018 7:02 AM EDT AGE/SEX: 72 years / Male INDICATIONS: Shortness of breath. CLINICAL DATA: This is the patient's subsequent encounter. Patient reports that signs and symptoms h ave been present for 4 - 6 days and indicates a pain score of Nonresponsive. MEDICAL/SURGICAL HISTORY: Non-responsive. Non-responsive. COMPARISON: C, CHEST 1V SINGLE AP, 04/19/2018. . FINDINGS: Significant airspace disease remains evident within the right midlung and base. There is overall decr eased lung aeration. Left lung remains relatively clear. Endotracheal and nasogastric tubes are in stable position. CONCLUSION: 1. Decreased lung aeration. 2. Persistent right mid lung and basilar airspace disease 3. Stable supportive devices. Electronically signed by: Alex Clay MD 04/20/2018 7:08 AM EDT
[2018-04-20] MEDS: Chlorhexidine 0.12% Oral Kit 15 ML UDC OROPHARYNG SCH ×2 (08:03→20:22)
[2018-04-20] MEDS: amLODIPine 10 MG Tablet PO SCH (08:26)
[2018-04-20] MEDS: Azithromycin Inj 500 MG in Sodium Chlor 0.9% Inj 250 ML IV.SIG SCH (08:27)
[2018-04-20] MEDS: Enoxaparin Inj 40 MG/0.4 ML Syringe SQ SCH (08:28)
[2018-04-20] MEDS: Hypromellose 0.3% Opth Gel 10 GM Bottle EACH EYE SCH ×4 (08:51→20:22)
[2018-04-20] MEDS: Insulin NovoLIN Regular Correctional Sugar Inj SQ SCH ×4 (08:58→20:33)
[2018-04-20] MEDS: Glycerin Adult 2 GM Supp RECTAL SCH (10:32)
[2018-04-20] MEDS: Insulin Aspart Prot 70/30 1,000 UNITS/10 ML Vial SQ SCH ×2 (10:49→17:25)
[2018-04-20] MEDS: Famotidine PF Inj 20 MG/2 ML Vial IV.PUSH SCH ×2 (10:50→20:03)
[2018-04-20] MEDS: Vancomycin Inj 2,000 MG in Sodium Chlor 0.9% Inj 500 ML IV.SIG SCH (10:50)
--- NOTE | 2018-04-20 11:32 | P.PN ---
Subjective Interval history: intubated sedated w/diprivan only sedation vacation earlier per nurse followed commands w/left side some motor right leg none in right arm. Physical Exam Vital signs: Vital Signs 04/19/18 12:00 04/19/18 12:13 04/19/18 15:59 Temperature 99.6 F Pulse Rate 100 H 97 H 101 H Respiratory Rate 16 16 16 Blood Pressure 200/100 H Pulse Oximetry 95 04/19/18 16:00 04/19/18 19:00 04/19/18 20:00 Temperature 99.2 F 99.2 F Pulse Rate 100 H 92 H Respiratory Rate 17 16 Blood Pressure 142/72 H 143/65 H Pulse Oximetry 96 99 99 04/19/18 20:01 04/19/18 23:56 04/20/18 00:00 Temperature 99.0 F Pulse Rate 88 80 78 Respiratory Rate 16 16 16 Blood Pressure 128/65 Pulse Oximetry 99 99 100 04/20/18 02:00 04/20/18 03:13 04/20/18 04:00 Temperature 99.0 F Pulse Rate 76 77 82 Respiratory Rate 16 16 Blood Pressure 170/76 H Pulse Oximetry 99 99 04/20/18 06:00 04/20/18 07:00 04/20/18 08:00 Temperature 99.4 F Pulse Rate 84 83 Respiratory Rate 16 Blood Pressure 198/88 H Pulse Oximetry 100 100 04/20/18 08:10 04/20/18 08:13 Temperature Pulse Rate 80 Respiratory Rate 16 17 Blood Pressure Pulse Oximetry 100 Intake & Output 04/19/18 04/20/18 04/20/18 18:59 06:59 18:59 Intake Total 3049 / 3049 1980 450 / 450 Output Total 1325 / 1325 550 / 550 Balance 1724 / 1724 1431 / 1431 450 / 450 Weight 95.1 kg Intake: IV 2870 / 2870 1500 / 1500 450 / 450 NS + KCl 20 mEq Inj 1,000 ML @ 1000 / 1000 1000 / 1000 30 mls/hr IV.CONT .Q24H [facility] Rx# :[id number] Diprivan 1000 mg/100 ml Inj 1, 100 / 100 100 / 100 000 mg In 100 ml @ 5 MCG/KG/MIN 2.904 mls/hr IV.CONT TITRATE PRN Rx#:[id number] Cardene Inj 25 MG In NS Inj 240 500 / 500 ML @ 5 MG/HR 50 mls/hr IV.CONT TITRATE PRN Rx#:[id number] Azithromycin Inj 500 MG In NS 250 / 250 250 / 250 Inj 250 ML @ 250 mls/hr IV.SIG Q24H [facility] Rx#:[id number] Magnesium Sulfate 1 gm/D5W 100 100 / 100 100 / 100 ml Premix 100 ML @ 100 mls/hr IV.SIG Q1H [facility] Rx#:[id number] Zosyn 4.5 GM Premix 4.5 gm In 200 / 200 200 / 200 100 / 100 100 ml @ 200 mls/hr IV.SIG Q6H [facility] Rx#:[id number] KCl 10 mEq Premix Inj 10 meq In 200 / 200 100 / 100 100 ml @ 100 mls/hr IV.SIG Q1H [facility] Rx#:[id number] Vancomycin Inj 2,000 MG In NS 520 / 520 Inj 500 ML @ 250 mls/hr IV.SIG Q24H [facility] Rx#:[id number] fentaNYL 10 mcg/mL Premix Drip 100 / 100 2,500 mcg In 250 ml @ 50 MCG/HR 5 mls/hr IV.SIG TITRATE PRN Rx #:[id number] Tube Feeding 59 / 59 481 / 481 Tube Irrigant 120 / 120 Output: Urine Amount (Catheter) 1325 / 1325 550 / 550 Condom 1325 / 1325 550 / 550 Gastric Drainage 0 / 0 Orogastric Tube 0 / 0 Other: Date of Last Bowel Movement 04/19/18 04/19/18 04/19/18 # Bowel Movements 1 Narrative: intub sedated limited exam on sedation w/d feet to stimuli - Urinary Catheter Management Condom Cath placed during this visit: no Results - Labs CBC & Chem 7: 04/20/18 03:39 04/20/18 03:39 Laboratory Results - last 24 hr 04/19/18 04/19/18 04/19/18 12:00 12:58 16:00 WBC RBC Hgb Hct MCV MCH MCHC RDW Plt Count MPV Neut % (Auto) Lymph % (Auto) Tift % (Auto) Eos % (Auto) Baso % (Auto) Neut # (Auto) Lymph # (Auto) Tift # (Auto) Eos # (Auto) Baso # (Auto) WBC Differential Differential Comment Puncture Site Right radial Patient Temperature 98.6 O2 Saturation 98 ABG pH 7.36 L ABG pCO2 46 H ABG pO2 363 H ABG HCO3 25 ABG O2 Content 20.4 H ABG Base Excess 0.6 ABG Methemoglobin 1.1 Tu Test Present Hemoglobin 14.2 Carboxyhemoglobin 0.7 O2 Delivery Device Ventilator Vent Setting Prvc 16/550/1.0it/5+ Inspired O2 100 Critical Value No Sodium Potassium Chloride Carbon Dioxide Anion Gap BUN Creatinine Estimated GFR POC Glucose 329 H Random Glucose Calcium Phosphorus Magnesium Total Bilirubin AST ALT Alkaline Phosphatase Total Protein Albumin Urine Color Yellow Urine Clarity Clear Urine pH 6.0 Ur Specific [place] 1.014 Urine Protein 30 H Urine Glucose (UA) 500 or greater Urine Ketones 20 Urine Occult Blood Small H Urine Nitrate Negative Urine Bilirubin Negative Urine Urobilinogen Less than 2 Ur Leukocyte Esterase Negative Urine RBC 1 Urine WBC 1 Ur Squamous Epith Cells <1 Urine Bacteria Few H Micro UA Comment Culture not ind Ur Microscopic Review Not Reportable Urine Culture Comments Culture not ind 04/19/18 04/19/18 04/20/18 17:53 20:46 03:39 WBC 14.3 H RBC 4.89 Hgb 12.5 L Hct 39.4 MCV 80.6 MCH 25.6 L MCHC 31.8 L RDW 13.8 Plt Count 133 L MPV 8.9 Neut % (Auto) 76.0 H Lymph % (Auto) 15.0 Tift % (Auto) 8.1 H Eos % (Auto) 0.5 Baso % (Auto) 0.4 Neut # (Auto) 10.9 H Lymph # (Auto) 2.2 Tift # (Auto) 1.2 H Eos # (Auto) 0.1 Baso # (Auto) 0.1 WBC Differential . Differential Comment Auto diff final Puncture Site Patient Temperature O2 Saturation ABG pH ABG pCO2 ABG pO2 ABG HCO3 ABG O2 Content ABG Base Excess ABG Methemoglobin Tu Test Hemoglobin Carboxyhemoglobin O2 Delivery Device Vent Setting Inspired O2 Critical Value Sodium Potassium Chloride Carbon Dioxide Anion Gap BUN Creatinine Estimated GFR POC Glucose 287 H 247 H Random Glucose Calcium Phosphorus Magnesium Total Bilirubin AST ALT Alkaline Phosphatase Total Protein Albumin Urine Color Urine Clarity Urine pH Ur Specific [place] Urine Protein Urine Glucose (UA) Urine Ketones Urine Occult Blood Urine Nitrate Urine Bilirubin Urine Urobilinogen Ur Leukocyte Esterase Urine RBC Urine WBC Ur Squamous Epith Cells Urine Bacteria Micro UA Comment Ur Microscopic Review Urine Culture Comments 04/20/18 04/20/18 03:39 08:22 WBC RBC Hgb Hct MCV MCH MCHC RDW Plt Count MPV Neut % (Auto) Lymph % (Auto) Tift % (Auto) Eos % (Auto) Baso % (Auto) Neut # (Auto) Lymph # (Auto) Tift # (Auto) Eos # (Auto) Baso # (Auto) WBC Differential Differential Comment Puncture Site Patient Temperature O2 Saturation ABG pH ABG pCO2 ABG pO2 ABG HCO3 ABG O2 Content ABG Base Excess ABG Methemoglobin Tu Test Hemoglobin Carboxyhemoglobin O2 Delivery Device Vent Setting Inspired O2 Critical Value Sodium 142 Potassium 4.3 Chloride 106 Carbon Dioxide 28.1 Anion Gap 8 BUN 20 H Creatinine 1.53 H Estimated GFR 45 L POC Glucose 278 H Random Glucose 254 H Calcium 7.9 L Phosphorus 2.2 L D Magnesium 2.5 D Total Bilirubin 0.7 AST 20 ALT 19 Alkaline Phosphatase 57 Total Protein 6.6 Albumin 2.5 L Urine Color Urine Clarity Urine pH Ur Specific [place] Urine Protein Urine Glucose (UA) Urine Ketones Urine Occult Blood Urine Nitrate Urine Bilirubin Urine Urobilinogen Ur Leukocyte Esterase Urine RBC Urine WBC Ur Squamous Epith Cells Urine Bacteria Micro UA Comment Ur Microscopic Review Urine Culture Comments Microbiology 04/19/18 08:20 Blood - Peripheral Aerobic Blood Culture - Preliminary No growth in 1 day 04/19/18 08:20 Blood - Peripheral Anaerobic Blood Culture - Preliminary No growth in 1 day 04/19/18 08:25 Blood - Peripheral Aerobic Blood Culture - Preliminary No growth in 1 day 04/19/18 08:25 Blood - Peripheral Anaerobic Blood Culture - Preliminary No growth in 1 day 04/19/18 16:00 Sputum - Endotracheal Gram Stain - Final - Imaging Impressions Chest X-Ray 04/19/18 11:18 CONCLUSION: Status post intubation with overall worsening lung exam within the right hemithorax. This likely reflects both pleural fluid as well as airspace consolidation. Head CT 04/20/18 06:00 CONCLUSION: 1. Evolving infarct in the upper left brain stem. No new hemorrhage or mass effect. No acute findings. . Chest X-Ray 04/20/18 06:46 CONCLUSION: 1. Decreased lung aeration. 2. Persistent right mid lung and basilar airspace disease 3. Stable supportive devices. Assessment and Plan - Plan intub sedated cont asa qd bp control but avoid sbp<140. echo conc mod lvh ef 55-60% will need rehab consult placed already [id number] scds lovenox Progress Note: Quality - Stroke Contraindication Not Initiating IV-Tpa: Contraindicated Symptom Onset Unknown: Yes Rehab Services Assessed: Physical therapy assessment
[2018-04-20] MEDS: Labetalol HCl Inj 100 MG/20 ML Vial IV.PUSH PRN (16:43)
[2018-04-21] MEDS: Oral Hygiene Kit OROPHARYNG SCH ×4 (00:48→17:38)
[2018-04-21] MEDS: Piperacil/Tazo 4.5 GM Premix 4.5 GM/100 ML BAG IV.SIG SCH ×4 (02:00→21:30)
[2018-04-21] MEDS: Chlorhexidine Gluconate 2% 1 Pack (2 Cloths) TOPICAL SCH (03:46)
[2018-04-21] MEDS: Propofol 1000 mg/100 ml Inj 1,000 MG/100 ML BOTTLE IV.CONT PRN ×2 (04:37→21:28)
[2018-04-21] MEDS: Labetalol HCl Inj 100 MG/20 ML Vial IV.PUSH PRN (04:57)
[2018-04-21 06:58] LABS: Hematocrit 36.7 % (39.0-51.0); Hemoglobin 11.8 gm/dL (13.0-17.0); Mean Corpuscular HGB Conc 32.2 % (32.0-36.0); Mean Corpuscular Hemoglobin 25.5 pg (27.0-34.0); Mean Corpuscular Volume 79.2 fL (80.0-100.0); Mean Platelet Volume 8.7 fL (7.0-11.0); Platelet Count 144 th/mm3 (150-450); Red Blood Count 4.63 mil/mm3 (4.50-5.90); Red Cell Distribution Width 13.8 % (11.6-17.2); White Blood Count 11.7 th/mm3 (4.0-11.0)
[2018-04-21 07:31] LABS: Alanine Aminotransferase 76 U/L (12-78); Albumin 2.1 g/dL (3.4-5.0); Alkaline Phosphatase 102 U/L (45-117); Anion Gap 7 meq/L (5-15); Aspartate Aminotransferase 77 U/L (15-37); Blood Urea Nitrogen 19 mg/dL (7-18); Calcium 7.9 mg/dL (8.5-10.1); Carbon Dioxide 28.4 meq/L (21.0-32.0); Chloride 109 meq/L (98-107); Glomerular Filtration Rate 59 mL/min (>89); Glucose,Random 299 mg/dL (74-106); Magnesium 2.6 mg/dL (1.5-2.5); Potassium 4.6 meq/L (3.5-5.1); Sodium 144 meq/L (136-145); Total Protein 6.4 g/dL (6.4-8.2)
[2018-04-21] MEDS: Insulin NovoLIN Regular Correctional Sugar Inj SQ SCH ×4 (08:42→22:25)
[2018-04-21] MEDS: Insulin Aspart Prot 70/30 1,000 UNITS/10 ML Vial SQ SCH ×2 (08:42→18:01)
[2018-04-21] MEDS: amLODIPine 10 MG Tablet PO SCH (08:43)
[2018-04-21] MEDS: Enoxaparin Inj 40 MG/0.4 ML Syringe SQ SCH (08:43)
[2018-04-21] MEDS: Famotidine PF Inj 20 MG/2 ML Vial IV.PUSH SCH ×2 (08:43→21:30)
[2018-04-21] MEDS: Glycerin Adult 2 GM Supp RECTAL SCH (08:44)
[2018-04-21] MEDS: Azithromycin Inj 500 MG in Sodium Chlor 0.9% Inj 250 ML IV.SIG SCH (08:45)
[2018-04-21] MEDS: Hypromellose 0.3% Opth Gel 10 GM Bottle EACH EYE SCH ×4 (09:02→22:27)
[2018-04-21] MEDS: Chlorhexidine 0.12% Oral Kit 15 ML UDC OROPHARYNG SCH ×2 (09:46→21:31)
[2018-04-21] MEDS: Vancomycin Inj 2,000 MG in Sodium Chlor 0.9% Inj 500 ML IV.SIG SCH (11:03)
--- NOTE | 2018-04-21 12:37 | P.PNCC ---
Subjective Subjective Remarks/Hospital Course: 72yM presenting to the ED overnight on 04/16/18 with right leg weakness/ numbness and unsteady gait. The patient states that he woke up yesterday morning with difficulty moving his right leg and feeling "off balance". He reports that the symptoms did not improve over the course of the day, so he went to the emergency department, where he was found to have profound hypertension. The patient says that he has a history of hypertension and "white coat syndrome" but has never had a hypertensive emergency in the past. He denies facial droop, slurred speech, aphasia, difficulty swallowing, arm weakness/ numbness, or confusion. He has no history of CVA/ TIA in the past. H/O HTN, diabetes, anxiety SUBJ 04/18/18: Patient was transferred to [facility] today for deteriorating clinical condition. I evaluated patient in the ICU. Currently has significant right facial droop worsening hemiplegia unable to move right side even though sensation appears to be preserved. 0 out of 5 power on the right upper and lower extremity. Patient also has difficulty clearing secretions and has bilateral wheezing. CT did not show any significant change an MRI is pending at this time. I explained to the family including about acute risk of deterioration and need for airway protection. They expressed good understanding SUBJECTIVE: 04/19: T-max 102. Tachycardic. Minimal to no movement to right upper lower extremity. Likely aspirating. Discussed with in detail 30 minutes benefits and risks of intubation. She will bring antibiotic eyedrops for left eye today. Patient currently in 100 percent nonrebreather. She wishes to initiate antibiotic therapy first but aware that high risk of intubation. 04/20 patient now intubated sedated. Clearly aspirated yesterday and now with significant right lower lobe consolidation. Sputum culture is pending. CT head today shows evolving left upper brainstem infarct. 04/21: Patient remains intubated, on sedation lightening patient does follow commands with the left side, his remains closed. WBC count slowly improving. Blood pressure control is within target but on the higher end of the limit. Will resume his home medication of clonidine 0.3 mg twice daily . Objective Vital Signs / I&O: Vital Signs 04/20/18 14:00 04/20/18 15:57 04/20/18 16:00 Temperature 99.2 F Pulse Rate 84 72 Respiratory Rate 16 16 Blood Pressure 193/84 H Pulse Oximetry 99 04/20/18 18:00 04/20/18 19:00 04/20/18 20:00 Temperature 98.9 F Pulse Rate 75 70 Respiratory Rate 16 Blood Pressure 185/79 H Pulse Oximetry 100 100 04/20/18 20:05 04/20/18 22:00 04/21/18 00:00 Temperature 98.3 F Pulse Rate 68 68 68 Respiratory Rate 16 16 Blood Pressure 144/66 H Pulse Oximetry 99 99 04/21/18 00:13 04/21/18 02:00 04/21/18 03:59 Temperature Pulse Rate 68 65 75 Respiratory Rate 16 16 Blood Pressure Pulse Oximetry 100 100 04/21/18 04:00 04/21/18 06:00 04/21/18 07:00 Temperature 98.5 F Pulse Rate 75 60 Respiratory Rate 16 Blood Pressure 177/77 H Pulse Oximetry 100 100 04/21/18 07:53 04/21/18 08:09 04/21/18 08:10 Temperature Pulse Rate 70 67 Respiratory Rate 16 16 Blood Pressure Pulse Oximetry 100 04/21/18 10:00 04/21/18 12:00 04/21/18 12:14 Temperature 99.6 F Pulse Rate 70 60 Respiratory Rate 19 18 Blood Pressure 163/74 H Pulse Oximetry 100 100 04/21/18 12:15 Temperature Pulse Rate 64 Respiratory Rate 18 Blood Pressure Pulse Oximetry Intake & Output 04/20/18 04/21/18 04/21/18 18:59 06:59 18:59 Intake Total 1870 / 1870 2240 / 2240 1350 / 1350 Output Total 800 / 800 450 / 450 Balance 1070 / 1070 1790 / 1790 1350 / 1350 Weight 98 kg Intake: IV 1870 / 1870 1400 / 1400 1350 / 1350 NS + KCl 20 mEq Inj 1,000 ML @ 700 / 700 1000 / 1000 1000 / 1000 84 mls/hr IV.CONT .[id number] [facility] Rx#:[id number] Diprivan 1000 mg/100 ml Inj 1, 100 / 100 200 / 200 000 mg In 100 ml @ 5 MCG/KG/MIN 2.904 mls/hr IV.CONT TITRATE PRN Rx#:[id number] Azithromycin Inj 500 MG In NS 250 / 250 250 / 250 Inj 250 ML @ 250 mls/hr IV.SIG Q24H [facility] Rx#:[id number] Zosyn 4.5 GM Premix 4.5 gm In 200 / 200 200 / 200 100 / 100 100 ml @ 200 mls/hr IV.SIG Q6H [facility] Rx#:[id number] Vancomycin Inj 2,000 MG In NS 520 / 520 Inj 500 ML @ 250 mls/hr IV.SIG Q24H [facility] Rx#:[id number] fentaNYL 10 mcg/mL Premix Drip 100 / 100 2,500 mcg In 250 ml @ 50 MCG/HR 5 mls/hr IV.SIG TITRATE PRN Rx #:[id number] Tube Feeding 720 / 720 Tube Irrigant 120 / 120 Output: Urine 800 / 800 Urine Amount (Catheter) 450 / 450 Condom 450 / 450 Gastric Drainage 0 / 0 Orogastric Tube 0 / 0 Other: Date of Last Bowel Movement 04/19/18 04/19/18 Result Diagrams: 04/21/18 06:25 04/21/18 06:25 Objective Remarks: GEN: Well-nourished well-developed male, currently intubated sedated with propofol and fentanyl HEENT: NCAT, pupils 3 mm and reactive bilaterally, greenish exudate from left eye, right-sided facial droop present NECK: Trachea midline, no carotid bruits CARDIO: S1-S2 normal no murmurs PULM: Air Entry diminished bilateral bases right greater than left, mild wheezes bilaterally. Orotracheally intubated ABD: Soft, protuberant, non-tender in all quadrants EXT: No significant peripheral edema SKIN: No rashes or lesions NEURO: Patient is sedated. Right-sided facial droop. 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 Morton -MRI brain revealed evolving left cerebellar peduncle CVA 8 mm, CT 04/20 shows evolving left brainstem stroke -CT/ CTA head and neck reviewed, no hemorrhage or flow-limiting lesions noted, right M2 50% stenosis. Repeat CT angiogram 04/18 unchanged -Patient presented with unclear time of onset so was not a candidate for tPA -Hold home dose of diazepam 5 mg daily -Patient is hypertensive and tachycardic but has no signs of elevated intracranial pressure, -Permissive hypertension can be lessened somewhat. Goal 140 -180 CARDIO: Hypertensive emergency History of essential hypertension -Profoundly hypertensive with relative bradycardia (HR in 30s-40s) now tachycardic -Continue to keep SBP <140-180 -ASA 81 daily -At home on clonidine 0.3 mg twice daily and enalapril 20 mg daily -Use nicardipine infusion, IV enalaprilat, IV hydralazine and IV labetalol as needed -Currently on Norvasc 10 mg daily, resume clonidine at 0.3 mg twice daily -color television console monitor, -ECHO revealed EF 55-60%. -Cholesterol 140. LDL 83. PULM: Acute hypoxemic respiratory failure Aspiration pneumonia right lower lobe Compromised airway protection due to stroke -Chest x-ray right lower lobe infiltrate. Repeat chest x-ray today -Intubated 04/19/2018 for lack of airway protection and hypoxemic respiratory failure -DuoNeb every 4 hours scheduled and as needed -Broad-spectrum antibiotics with Zosyn and azithromycin and vancomycin-DC vancomycin and azithromycin today -Daily SBT GI: -Tube feeds with Glucerna, IV famotidine -Glycerin suppository daily for bowel regimen /RENAL: Acute kidney injury -Continue careful hydration with normal saline at 84 mL/h -Creatinine currently within normal limits -Monitor urine output -Accurate I's and O's -Electrolyte replacement per protocol ID: Aspiration pneumonia Severe sepsis Currently on on vancomycin, piperacillin/tazobactam and azithromycin day #2 Cultures remain negative, DC azithromycin and vancomycin Follow-up blood cultures 2, sputum and UA ordered 04/19 HEME: Leukocytosis -Monitor CBC daily follow trends. ENDO: DMII Hemoglobin A1c 9.0 Hold metformin 1000 mg twice daily Continue sliding scale insulin Accu-Cheks with Novolin R every 6 hours Continue NovoLog NPH 70/30 18 units twice daily and sliding scale insulin Novolin R PROPH: -Enoxaparin, SCDs -IV famotidine for stress ulcer prophylaxis 35 minutes critical care time Progress Note: Quality - Stroke Contraindication Not Initiating IV-Tpa: Contraindicated Symptom Onset Unknown: Yes Rehab Services Assessed: Physical therapy assessment
--- NOTE | 2018-04-21 13:19 | XR ---
EXAM DATE: 04/21/2018 1:14 PM EDT AGE/SEX: 72 years / Male INDICATIONS: Respiratory disease. CLINICAL DATA: This is the patient's subsequent encounter. Patient reports that signs and symptoms h ave been present for 4 - 6 days and indicates a pain score of Nonresponsive. MEDICAL/SURGICAL HISTORY: Non-responsive. Non-responsive. COMPARISON: [facility], CHEST 1V SINGLE AP, 04/20/2018. . FINDINGS: There is no significant change in appearance of the chest. Are slightly consolidating airspace diseas e remains evident in the right base. Minimal airspace disease is seen in the left infrahilar region. Heart and mediastinal structures are stable. Endotracheal and nasogastric tubes are in good position. CONCLUSION: No significant change Bilateral airspace disease Endotracheal and nasogastric tubes remain in good position. Electronically signed by: Alex Clay MD 04/21/2018 1:18 PM EDT
[2018-04-22] MEDS: Oral Hygiene Kit OROPHARYNG SCH ×5 (02:14→23:47)
[2018-04-22] MEDS: Piperacil/Tazo 4.5 GM Premix 4.5 GM/100 ML BAG IV.SIG SCH ×4 (02:19→20:35)
--- NOTE | 2018-04-22 07:18 | P.PNCC ---
Subjective Subjective Remarks/Hospital Course: 72yM presenting to the ED overnight on 04/16/18 with right leg weakness/ numbness and unsteady gait. The patient states that he woke up yesterday morning with difficulty moving his right leg and feeling "off balance". He reports that the symptoms did not improve over the course of the day, so he went to the emergency department, where he was found to have profound hypertension. The patient says that he has a history of hypertension and "white coat syndrome" but has never had a hypertensive emergency in the past. He denies facial droop, slurred speech, aphasia, difficulty swallowing, arm weakness/ numbness, or confusion. He has no history of CVA/ TIA in the past. H/O HTN, diabetes, anxiety SUBJ 04/18/18: Patient was transferred to [facility] today for deteriorating clinical condition. I evaluated patient in the ICU. Currently has significant right facial droop worsening hemiplegia unable to move right side even though sensation appears to be preserved. 0 out of 5 power on the right upper and lower extremity. Patient also has difficulty clearing secretions and has bilateral wheezing. CT did not show any significant change an MRI is pending at this time. I explained to the family including about acute risk of deterioration and need for airway protection. They expressed good understanding SUBJECTIVE: 04/19: T-max 102. Tachycardic. Minimal to no movement to right upper lower extremity. Likely aspirating. Discussed with in detail 30 minutes benefits and risks of intubation. She will bring antibiotic eyedrops for left eye today. Patient currently in 100 percent nonrebreather. She wishes to initiate antibiotic therapy first but aware that high risk of intubation. 04/20 patient now intubated sedated. Clearly aspirated yesterday and now with significant right lower lobe consolidation. Sputum culture is pending. CT head today shows evolving left upper brainstem infarct. 04/21: Patient remains intubated, on sedation lightening patient does follow commands with the left side, his remains closed. WBC count slowly improving. Blood pressure control is within target but on the higher end of the limit. Will resume his home medication of clonidine 0.3 mg q8h 04/22: Patient remains intubated slightly sedated with propofol 10 mcg/kg/min. Blood pressure on the higher side. Restart hydralazine 100 mg p.o. every 8 hours. Attempt CPAP trials check chest x-ray. . Objective Vital Signs / I&O: Vital Signs 04/21/18 07:53 04/21/18 08:09 04/21/18 08:10 Temperature Pulse Rate 70 67 Respiratory Rate 16 16 Blood Pressure Pulse Oximetry 100 04/21/18 10:00 04/21/18 12:00 04/21/18 12:14 Temperature 99.6 F Pulse Rate 70 69 Respiratory Rate 19 18 Blood Pressure 163/74 H Pulse Oximetry 100 100 04/21/18 12:15 04/21/18 14:00 04/21/18 16:00 Temperature 99.1 F Pulse Rate 64 69 60 Respiratory Rate 18 10 L Blood Pressure 111/55 L Pulse Oximetry 100 04/21/18 16:39 04/21/18 16:40 04/21/18 18:00 Temperature Pulse Rate 60 57 L Respiratory Rate 11 L 12 Blood Pressure Pulse Oximetry 100 04/21/18 19:45 04/21/18 20:00 04/21/18 22:00 Temperature 99 F Pulse Rate 59 L 56 L 56 L Respiratory Rate 14 15 Blood Pressure 175/79 H Pulse Oximetry 100 100 04/21/18 23:10 04/21/18 23:11 04/22/18 00:00 Temperature 98.5 F Pulse Rate 53 L 60 Respiratory Rate 15 15 15 Blood Pressure 120/60 Pulse Oximetry 99 100 04/22/18 02:00 04/22/18 03:07 04/22/18 04:00 Temperature 98.8 F Pulse Rate 53 L 52 L 56 L Respiratory Rate 17 15 Blood Pressure 155/70 H Pulse Oximetry 100 100 04/22/18 06:00 Temperature Pulse Rate 56 L Respiratory Rate Blood Pressure Pulse Oximetry Intake & Output 04/21/18 04/22/18 04/22/18 18:59 06:59 18:59 Intake Total 2470 / 2470 2307 / 2307 Output Total 1200 / 1200 650 / 650 Balance 1270 / 1270 1657 / 1657 Weight 100.1 kg Intake: IV 2019 1200 / 1200 NS + KCl 20 mEq Inj 1,000 ML @ 1000 / 1000 1000 / 1000 84 mls/hr IV.CONT .[id number] [facility] Rx#:[id number] Diprivan 1000 mg/100 ml Inj 1, 50 / 50 000 mg In 100 ml @ 5 MCG/KG/MIN 2.904 mls/hr IV.CONT TITRATE PRN Rx#:[id number] Azithromycin Inj 500 MG In NS 250 / 250 Inj 250 ML @ 250 mls/hr IV.SIG Q24H [facility] Rx#:[id number] Zosyn 4.5 GM Premix 4.5 gm In 200 / 200 200 / 200 100 ml @ 200 mls/hr IV.SIG Q6H [facility] Rx#:[id number] Vancomycin Inj 2,000 MG In NS 520 / 520 Inj 500 ML @ 250 mls/hr IV.SIG Q24H [facility] Rx#:[id number] Tube Feeding 450 / 450 1047 / 1047 Tube Irrigant 60 / 60 Output: Urine 1200 / 1200 650 / 650 Other: Date of Last Bowel Movement 04/21/18 Result Diagrams: 04/21/18 06:25 04/21/18 06:25 Objective Remarks: GEN: Well-nourished well-developed male, currently intubated sedated with propofol HEENT: NCAT, pupils 3 mm and reactive bilaterally, greenish exudate from left eye, right-sided facial droop present NECK: Trachea midline, no carotid bruits CARDIO: S1-S2 normal no murmurs PULM: Air Entry diminished bilateral bases right greater than left, mild wheezes. Orotracheally intubated ABD: Soft, protuberant, non-tender in all quadrants EXT: No significant peripheral edema SKIN: No rashes or lesions NEURO: Patient is sedated. Right-sided facial droop. 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 Morton -MRI brain revealed evolving left cerebellar peduncle CVA 8 mm, CT 04/20 shows evolving left brainstem stroke -CT/ CTA head and neck reviewed, no flow-limiting lesions noted, right M2 50% stenosis. Repeat CT angiogram 04/18 unchanged -Patient presented with unclear time of onset so was not a candidate for tPA -Holding home dose of diazepam 5 mg daily -Patient is hypertensive and tachycardic but has no signs of elevated intracranial pressure, -Permissive hypertension now Goal 140 -180 CARDIO: Hypertensive emergency History of essential hypertension -Profoundly hypertensive with relative bradycardia (HR in 30s-40s) -Continue to keep SBP <140-180 -ASA 81 daily -At home on clonidine 0.3 mg twice daily and enalapril 20 mg daily -Currently on Norvasc 10 mg daily, resume clonidine at 0.3 mg q8h, will resume hydralazine 100 mg every 8 hours -Use nicardipine infusion, IV enalaprilat, IV hydralazine and IV labetalol as needed -ECHO revealed EF 55-60%. -Cholesterol 140. LDL 83. PULM: Acute hypoxemic respiratory failure Aspiration pneumonia right lower lobe Compromised airway protection due to stroke -Chest x-ray right lower lobe infiltrate. Repeat chest x-ray today -Intubated 04/19/2018 for lack of airway protection and hypoxemic respiratory failure -DuoNeb every 4 hours scheduled and as needed -Broad-spectrum antibiotics with Zosyn -Daily SBT, mental status not permitting extubation at this time GI: -Tube feeds with Glucerna, IV famotidine -Glycerin suppository daily for bowel regimen, having BM /RENAL: Acute kidney injury -Discontinue normal saline -Creatinine currently 1.2 -Monitor urine output, Accurate I's and O's -Electrolyte replacement per protocol ID: Aspiration pneumonia Severe sepsis Currently on piperacillin/tazobactam. Vanc and azithromycin discontinued 2017 Follow-up blood cultures 2, sputum and UA ordered 04/19- HEME: Leukocytosis -Monitor CBC daily follow trends. ENDO: DMII Hemoglobin A1c 9.0 Hold metformin 1000 mg twice daily Continue sliding scale insulin Accu-Cheks with Novolin R every 6 hours Continue NovoLog NPH 70/30 18 units twice daily and sliding scale insulin Novolin R PROPH: -Enoxaparin, SCDs -IV famotidine for stress ulcer prophylaxis 35 minutes critical care time Patient remains intubated critically ill still with compromised airway protection. His aspiration pneumonia though appears to be improving. Will attempt CPAP trial but if unable to protect airway eventually may need tracheostomy and PEG tube placement Progress Note: Quality - Stroke Contraindication Not Initiating IV-Tpa: Contraindicated Symptom Onset Unknown: Yes Rehab Services Assessed: Physical therapy assessment
[2018-04-22] MEDS: Chlorhexidine 0.12% Oral Kit 15 ML UDC OROPHARYNG SCH ×2 (08:09→20:35)
--- NOTE | 2018-04-22 08:24 | XR ---
EXAM DATE: 04/22/2018 8:19 AM EDT AGE/SEX: 72 years / Male INDICATIONS: Respiratory status. CLINICAL DATA: This is the patient's subsequent encounter. Patient reports that signs and symptoms h ave been present for 2 weeks and indicates a pain score of Nonresponsive. MEDICAL/SURGICAL HISTORY: Hypertension. Diabetes. Bradycardia. None. COMPARISON: [facility], CHEST 1V SINGLE AP, 04/21/2018. . FINDINGS: Endotracheal and nasogastric tubes remain in good position. Diffuse bilateral airspace disease remains evident without significant improvement. Heart is mildly enlarged. CONCLUSION: No significant improvement Diffuse bilateral airspace disease Supportive devices remain in good position. Electronically signed by: Alex Clay MD 04/22/2018 8:23 AM EDT
[2018-04-22] MEDS: Insulin NovoLIN Regular Correctional Sugar Inj SQ SCH ×4 (10:08→20:51)
[2018-04-22] MEDS: Glycerin Adult 2 GM Supp RECTAL SCH (10:09)
[2018-04-22] MEDS: Enoxaparin Inj 40 MG/0.4 ML Syringe SQ SCH (10:09)
[2018-04-22] MEDS: amLODIPine 10 MG Tablet PO SCH (10:09)
[2018-04-22] MEDS: Hypromellose 0.3% Opth Gel 10 GM Bottle EACH EYE SCH ×4 (10:10→20:35)
[2018-04-22] MEDS: Famotidine PF Inj 20 MG/2 ML Vial IV.PUSH SCH ×2 (10:10→20:35)
[2018-04-22] MEDS: Insulin Aspart Prot 70/30 1,000 UNITS/10 ML Vial SQ SCH ×2 (10:23→16:22)
[2018-04-22] MEDS ORDERED: Pharmacy Ordered Lab Info OTHER ONE (10:45)
[2018-04-22] MEDS: niCARdipine Inj 25 MG in Sodium Chlor 0.9% Inj 240 ML IV.CONT PRN ×4 (11:22→20:35)
[2018-04-22 11:35] LABS: Alanine Aminotransferase 64 U/L (12-78); Anion Gap 6 meq/L (5-15); Aspartate Aminotransferase 39 U/L (15-37); Blood Urea Nitrogen 21 mg/dL (7-18); Calcium 8.1 mg/dL (8.5-10.1); Carbon Dioxide 29.9 meq/L (21.0-32.0); Chloride 112 meq/L (98-107); Glomerular Filtration Rate 61 mL/min (>89); Glucose,Random 271 mg/dL (74-106); Potassium 4.9 meq/L (3.5-5.1); Sodium 148 meq/L (136-145)
[2018-04-22 11:38] LABS: Alkaline Phosphatase 90 U/L (45-117); Total Protein 6.1 g/dL (6.4-8.2)
[2018-04-22] MEDS: hydrALAZINE 50 MG Tablet PO SCH ×2 (13:11→21:10)
[2018-04-22 15:11] LABS: ABG Base Excess 5.7 mmol/L (-2-2); ABG PCO2 41 mmHg (38-42); ABG PO2 91 mmHg (61-120)
[2018-04-23] MEDS: Piperacil/Tazo 4.5 GM Premix 4.5 GM/100 ML BAG IV.SIG SCH ×4 (01:45→19:38)
[2018-04-23] MEDS: hydrALAZINE 50 MG Tablet PO SCH ×3 (05:18→23:19)
[2018-04-23] MEDS: Oral Hygiene Kit OROPHARYNG SCH ×4 (05:19→23:08)
--- NOTE | 2018-04-23 05:28 | XR ---
EXAM DATE: 04/23/2018 5:18 AM EDT AGE/SEX: 72 years / Male INDICATIONS: Shortness of breath. CLINICAL DATA: This is the patient's subsequent encounter. Patient reports that signs and symptoms h ave been present for 2 weeks and indicates a pain score of Nonresponsive. MEDICAL/SURGICAL HISTORY: . Hypertension. Diabetes. Bradycardia. None. COMPARISON: [facility], CHEST 1V SINGLE AP, 04/22/2018. . FINDINGS: Endotracheal tube in good position. NG coiled in stomach. Basilar airspace disease, right [place] n left is similar to April 22. No significant effusion. No pneumothorax. CONCLUSION: Basilar airspace consolidation similar to April 22. Support apparatus unchanged. Electronically signed by: Angel Farrell MD 04/23/2018 5:27 AM EDT
[2018-04-23 07:11] LABS: Hematocrit 35.1 % (39.0-51.0); Hemoglobin 11.3 gm/dL (13.0-17.0); Mean Corpuscular HGB Conc 32.1 % (32.0-36.0); Mean Corpuscular Hemoglobin 25.6 pg (27.0-34.0); Mean Corpuscular Volume 79.6 fL (80.0-100.0); Platelet Count 202 th/mm3 (150-450); Red Blood Count 4.41 mil/mm3 (4.50-5.90); Red Cell Distribution Width 13.6 % (11.6-17.2); White Blood Count 9.7 th/mm3 (4.0-11.0)
[2018-04-23] MEDS: Enoxaparin Inj 40 MG/0.4 ML Syringe SQ SCH (07:59)
[2018-04-23] MEDS: Famotidine PF Inj 20 MG/2 ML Vial IV.PUSH SCH ×2 (07:59→20:33)
[2018-04-23] MEDS: Hypromellose 0.3% Opth Gel 10 GM Bottle EACH EYE SCH ×4 (07:59→20:18)
[2018-04-23] MEDS: amLODIPine 10 MG Tablet PO SCH (08:00)
[2018-04-23] MEDS: Insulin NovoLIN Regular Correctional Sugar Inj SQ SCH ×4 (08:00→20:17)
[2018-04-23] MEDS: Insulin Aspart Prot 70/30 1,000 UNITS/10 ML Vial SQ SCH ×2 (08:08→16:59)
[2018-04-23] MEDS: Chlorhexidine 0.12% Oral Kit 15 ML UDC OROPHARYNG SCH ×2 (08:08→19:38)
[2018-04-23] MEDS: Glycerin Adult 2 GM Supp RECTAL SCH (08:09)
--- NOTE | 2018-04-23 09:31 | P.PNCC ---
Subjective Subjective Remarks/Hospital Course: 72yM presenting to the ED overnight on 04/16/18 with right leg weakness/ numbness and unsteady gait. The patient states that he woke up yesterday morning with difficulty moving his right leg and feeling "off balance". He reports that the symptoms did not improve over the course of the day, so he went to the emergency department, where he was found to have profound hypertension. The patient says that he has a history of hypertension and "white coat syndrome" but has never had a hypertensive emergency in the past. He denies facial droop, slurred speech, aphasia, difficulty swallowing, arm weakness/ numbness, or confusion. He has no history of CVA/ TIA in the past. H/O HTN, diabetes, anxiety SUBJ 04/18/18: Patient was transferred to [facility] today for deteriorating clinical condition. I evaluated patient in the ICU. Currently has significant right facial droop worsening hemiplegia unable to move right side even though sensation appears to be preserved. 0 out of 5 power on the right upper and lower extremity. Patient also has difficulty clearing secretions and has bilateral wheezing. CT did not show any significant change an MRI is pending at this time. I explained to the family including about acute risk of deterioration and need for airway protection. They expressed good understanding SUBJECTIVE: 04/19: T-max 102. Tachycardic. Minimal to no movement to right upper lower extremity. Likely aspirating. Discussed with in detail 30 minutes benefits and risks of intubation. She will bring antibiotic eyedrops for left eye today. Patient currently in 100 percent nonrebreather. She wishes to initiate antibiotic therapy first but aware that high risk of intubation. 04/20 patient now intubated sedated. Clearly aspirated yesterday and now with significant right lower lobe consolidation. Sputum culture is pending. CT head today shows evolving left upper brainstem infarct. 04/21: Patient remains intubated, on sedation lightening patient does follow commands with the left side, his remains closed. WBC count slowly improving. Blood pressure control is within target but on the higher end of the limit. Will resume his home medication of clonidine 0.3 mg q8h 04/22: Patient remains intubated slightly sedated with propofol 10 mcg/kg/min. Blood pressure on the higher side. Restart hydralazine 100 mg p.o. every 8 hours. Attempt CPAP trials check chest x-ray. 04/23: Remains off all sedation more than 18 hours now. Opens eyes to command follows commands on the left upper and lower extremity. Tolerating CPAP mild cuff leak. Chest x-ray remains unchanged but oxygenation is good. Will give Lasix 60 mg IV 1 attempt extubation . Objective Vital Signs / I&O: Vital Signs 04/22/18 10:00 04/22/18 11:56 04/22/18 12:00 Temperature 99.1 F Pulse Rate 55 L 87 Respiratory Rate 18 20 Blood Pressure 239/106 H Pulse Oximetry 98 99 04/22/18 14:00 04/22/18 16:00 04/22/18 18:00 Temperature 100.2 F H Pulse Rate 73 61 66 Respiratory Rate 23 Blood Pressure 130/60 Pulse Oximetry 99 04/22/18 19:44 04/22/18 19:52 04/22/18 20:00 Temperature 101.1 F H Pulse Rate 73 63 Respiratory Rate 16 16 15 Blood Pressure 142/63 H Pulse Oximetry 100 98 04/22/18 22:00 04/22/18 23:27 04/23/18 00:00 Temperature 99.4 F Pulse Rate 70 56 L Respiratory Rate 15 16 Blood Pressure 119/56 L Pulse Oximetry 99 99 04/23/18 02:00 04/23/18 04:00 04/23/18 04:25 Temperature 98.2 F Pulse Rate 55 L 62 61 Respiratory Rate 15 15 Blood Pressure 159/59 H Pulse Oximetry 100 04/23/18 04:26 04/23/18 06:00 04/23/18 08:15 Temperature Pulse Rate 59 L Respiratory Rate 15 Blood Pressure Pulse Oximetry 99 100 Intake & Output 04/22/18 04/23/18 04/23/18 18:59 06:59 18:59 Intake Total 1364 / 1364 1136 / 1136 100 / 100 Output Total 3175 / 3175 900 / 900 Balance -1811 / -1811 236 / 236 100 / 100 Weight 101.3 kg Intake: IV 950 / 950 450 / 450 100 / 100 Cardene Inj 25 MG In NS Inj 240 750 / 750 250 / 250 ML @ 5 MG/HR 50 mls/hr IV.CONT TITRATE PRN Rx#:[id number] Zosyn 4.5 GM Premix 4.5 gm In 200 / 200 200 / 200 100 / 100 100 ml @ 200 mls/hr IV.SIG Q6H [facility] Rx#:[id number] Tube Feeding 234 / 234 586 / 586 Tube Irrigant 100 / 100 Water Bolus Amount 180 / 180 Output: Urine 900 / 900 Urine Amount (Catheter) 2275 / 2275 900 / 900 Condom 2275 / 2275 900 / 900 Other: Date of Last Bowel Movement 04/22/18 04/23/18 # Bowel Movements 1 1 Result Diagrams: 04/23/18 05:35 04/22/18 08:30 Objective Remarks: GEN: Well-nourished well-developed male, currently intubated off sedation HEENT: NCAT, pupils 3 mm and reactive bilaterally, greenish exudate from left eye improved, right-sided facial droop present NECK: Trachea midline, no carotid bruits CARDIO: S1-S2 normal no murmurs PULM: Air Entry diminished bilateral bases right greater than left, no wheezes. Orotracheally intubated ABD: Soft, protuberant, non-tender in all quadrants EXT: No significant peripheral edema SKIN: No rashes or lesions NEURO: Patient is off sedation. Right-sided facial droop. Opens eyes to verbal stimulation. 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 Morton -MRI brain revealed evolving left cerebellar peduncle CVA 8 mm, CT head 04/20 shows evolving left brainstem stroke -CT/ CTA head and neck reviewed, no flow-limiting lesions noted, right M2 50% stenosis. Repeat CT angiogram 04/18 unchanged -Patient presented with unclear time of onset so was not a candidate for tPA -Holding home dose of diazepam 5 mg daily -Permissive hypertension now Goal 140 -160 CARDIO: Hypertensive emergency History of essential hypertension -Profoundly hypertensive with relative bradycardia (HR in 30s-40s) -Continue to keep SBP <140-180 -ASA 81 daily -At home on clonidine 0.3 mg twice daily and enalapril 20 mg daily -Currently on Norvasc 10 mg daily, resume clonidine at 0.3 mg q8h, hydralazine 100 mg every 8 hours -Use nicardipine infusion, IV enalaprilat, IV hydralazine and IV labetalol as needed -ECHO revealed EF 55-60%. -Cholesterol 140. LDL 83. Continue statin PULM: Acute hypoxemic respiratory failure Aspiration pneumonia right lower lobe Compromised airway protection due to stroke -Chest x-ray right lower lobe infiltrate-stable. -Intubated 04/19/2018 for lack of airway protection and hypoxemic respiratory failure -DuoNeb every 4 hours scheduled and as needed -Broad-spectrum antibiotics with Zosyn -Tolerating his PT today mental status improved, will attempt extubation GI: -Tube feeds with Glucerna, IV famotidine-holding tube feeds for possible extubation -Glycerin suppository daily for bowel regimen, having BM /RENAL: Acute kidney injury -Discontinue normal saline -IV Lasix 60 mg x1 -Monitor urine output, Accurate I's and O's -Electrolyte replacement per protocol ID: Aspiration pneumonia Sepsis-resolving Currently on piperacillin/tazobactam. Vanc and azithromycin discontinued 2017 Follow-up blood cultures 2, sputum and UA ordered 04/19- HEME: Leukocytosis -Monitor CBC daily follow trends. ENDO: DMII Hemoglobin A1c 9.0. Hold metformin 1000 mg twice daily Continue sliding scale insulin Accu-Cheks with Novolin R every 6 hours Continue NovoLog NPH 70/30 18 units twice daily and sliding scale insulin Novolin R PROPH: -Enoxaparin, SCDs -IV famotidine for stress ulcer prophylaxis Level 3 Progress Note: Quality - Stroke Contraindication Not Initiating IV-Tpa: Contraindicated Symptom Onset Unknown: Yes Rehab Services Assessed: Physical therapy assessment
--- NOTE | 2018-04-23 10:30 | P.PN ---
Subjective Interval history: extubated now and receiving a breathing tx Physical Exam Vital signs: Vital Signs 04/22/18 11:56 04/22/18 12:00 04/22/18 14:00 Temperature 99.1 F Pulse Rate 87 73 Respiratory Rate 18 20 Blood Pressure 239/106 H Pulse Oximetry 98 99 04/22/18 16:00 04/22/18 18:00 04/22/18 19:44 Temperature 100.2 F H Pulse Rate 61 66 Respiratory Rate 23 16 Blood Pressure 130/60 Pulse Oximetry 99 100 04/22/18 19:52 04/22/18 20:00 04/22/18 22:00 Temperature 101.1 F H Pulse Rate 73 63 70 Respiratory Rate 16 15 Blood Pressure 142/63 H Pulse Oximetry 98 04/22/18 23:27 04/23/18 00:00 04/23/18 02:00 Temperature 99.4 F Pulse Rate 56 L 55 L Respiratory Rate 15 16 Blood Pressure 119/56 L Pulse Oximetry 99 99 04/23/18 04:00 04/23/18 04:25 04/23/18 04:26 Temperature 98.2 F Pulse Rate 62 61 Respiratory Rate 15 15 15 Blood Pressure 159/59 H Pulse Oximetry 100 99 04/23/18 06:00 04/23/18 08:15 04/23/18 09:36 Temperature Pulse Rate 59 L 67 Respiratory Rate 26 H Blood Pressure Pulse Oximetry 100 Intake & Output 04/22/18 04/23/18 04/23/18 18:59 06:59 18:59 Intake Total 1364 / 1364 1136 / 1136 100 / 100 Output Total 3175 / 3175 900 / 900 Balance -1811 / -1811 236 / 236 100 / 100 Weight 101.3 kg Intake: IV 950 / 950 450 / 450 100 / 100 Cardene Inj 25 MG In NS Inj 240 750 / 750 250 / 250 ML @ 5 MG/HR 50 mls/hr IV.CONT TITRATE PRN Rx#:[id number] Zosyn 4.5 GM Premix 4.5 gm In 200 / 200 200 / 200 100 / 100 100 ml @ 200 mls/hr IV.SIG Q6H [facility] Rx#:[id number] Tube Feeding 234 / 234 586 / 586 Tube Irrigant 100 / 100 Water Bolus Amount 180 / 180 Output: Urine 900 / 900 Urine Amount (Catheter) 2275 / 2275 900 / 900 Condom 5 / 2275 900 / 900 Other: Date of Last Bowel Movement 04/22/18 04/23/18 # Bowel Movements 1 1 Narrative: opens eyes to command and moves left side right side flaccid. follows commands. - Urinary Catheter Management Condom Cath placed during this visit: no Results - Labs CBC & Chem 7: 04/23/18 05:35 04/22/18 08:30 Laboratory Results - last 24 hr 04/19/18 04/22/18 04/22/18 06:42 08:30 12:05 WBC RBC Hgb Hct MCV MCH MCHC RDW Plt Count MPV Puncture Site Right radial Patient Temperature 98.6 O2 Saturation 92 ABG pH 7.45 H ABG pCO2 40 ABG pO2 69 ABG HCO3 27 H ABG O2 Content 18.9 ABG Base Excess 3.0 H ABG Methemoglobin 1.1 Tu Test Present Hemoglobin 14.6 Carboxyhemoglobin 1.1 O2 Delivery Device Non-rebreathing mask Liter Flow 15.00 Vent Setting Inspired O2 100 Critical Value No Sodium 148 H Potassium 4.9 Chloride 112 H Carbon Dioxide 29.9 Anion Gap 6 BUN 21 H Creatinine 1.17 Estimated GFR 61 L POC Glucose 235 H Random Glucose 271 H Calcium 8.1 L Magnesium Total Bilirubin 0.3 AST 39 H ALT 64 Alkaline Phosphatase 90 Total Protein 6.1 L Albumin 2.0 L 04/22/18 04/22/18 04/22/18 14:57 15:55 20:46 WBC RBC Hgb Hct MCV MCH MCHC RDW Plt Count MPV Puncture Site Right radial Patient Temperature 98.6 O2 Saturation 96 ABG pH 7.47 H ABG pCO2 41 ABG pO2 91 ABG HCO3 29 H ABG O2 Content 16.1 ABG Base Excess 5.7 H ABG Methemoglobin 0.9 Tu Test Present Hemoglobin 11.9 L Carboxyhemoglobin 1.1 O2 Delivery Device Ventilator Liter Flow Vent Setting Cpap 5/ps 5 Inspired O2 35 Critical Value No Sodium Potassium Chloride Carbon Dioxide Anion Gap BUN Creatinine Estimated GFR POC Glucose 221 H 184 H Random Glucose Calcium Magnesium Total Bilirubin AST ALT Alkaline Phosphatase Total Protein Albumin 04/23/18 04/23/18 04/23/18 05:35 05:35 07:36 WBC 9.7 RBC 4.41 L Hgb 11.3 L Hct 35.1 L MCV 79.6 L MCH 25.6 L MCHC 32.1 RDW 13.6 Plt Count 202 D MPV 9.0 Puncture Site Patient Temperature O2 Saturation ABG pH ABG pCO2 ABG pO2 ABG HCO3 ABG O2 Content ABG Base Excess ABG Methemoglobin Tu Test Hemoglobin Carboxyhemoglobin O2 Delivery Device Liter Flow Vent Setting Inspired O2 Critical Value Sodium Potassium Chloride Carbon Dioxide Anion Gap BUN Creatinine Estimated GFR POC Glucose 230 H Random Glucose Calcium Magnesium 2.9 H Total Bilirubin AST ALT Alkaline Phosphatase Total Protein Albumin Microbiology 04/19/18 08:20 Blood - Peripheral Aerobic Blood Culture - Preliminary No growth in 3 days 04/19/18 08:20 Blood - Peripheral Anaerobic Blood Culture - Preliminary No growth in 3 days 04/19/18 08:25 Blood - Peripheral Aerobic Blood Culture - Preliminary No growth in 3 days 04/19/18 08:25 Blood - Peripheral Anaerobic Blood Culture - Preliminary No growth in 3 days - Imaging Impressions Chest X-Ray 04/23/18 06:00 CONCLUSION: Basilar airspace consolidation similar to April 22. Support apparatus unchanged. Assessment and Plan - Plan cont asa qd cont tx as doing per license distributor will need swallow eval if fails may need peg pt-ot-st rehab scds sq heparin dvt prophylaxis Progress Note: Quality - Stroke Contraindication Not Initiating IV-Tpa: Contraindicated Symptom Onset Unknown: Yes Rehab Services Assessed: Physical therapy assessment
[2018-04-23] MEDS: Labetalol HCl Inj 100 MG/20 ML Vial IV.PUSH PRN ×4 (10:47→22:46)
[2018-04-23] MEDS: niCARdipine Inj 25 MG in Sodium Chlor 0.9% Inj 240 ML IV.CONT PRN ×4 (16:22→23:58)
[2018-04-23 16:56] LABS: Alanine Aminotransferase 56 U/L (12-78); Albumin 2.6 g/dL (3.4-5.0); Alkaline Phosphatase 105 U/L (45-117); Anion Gap 6 meq/L (5-15); Aspartate Aminotransferase 34 U/L (15-37); Blood Urea Nitrogen 25 mg/dL (7-18); Calcium 8.8 mg/dL (8.5-10.1); Carbon Dioxide 34.2 meq/L (21.0-32.0); Chloride 108 meq/L (98-107); Glomerular Filtration Rate 53 mL/min (>89); Glucose,Random 170 mg/dL (74-106); Sodium 148 meq/L (136-145); Total Protein 7.6 g/dL (6.4-8.2)
[2018-04-24] MEDS: Piperacil/Tazo 4.5 GM Premix 4.5 GM/100 ML BAG IV.SIG SCH ×4 (01:38→19:56)
[2018-04-24] MEDS: niCARdipine Inj 25 MG in Sodium Chlor 0.9% Inj 240 ML IV.CONT PRN ×6 (02:03→11:50)
[2018-04-24] MEDS: Oral Hygiene Kit OROPHARYNG SCH ×3 (03:24→17:28)
[2018-04-24] MEDS: Labetalol HCl Inj 100 MG/20 ML Vial IV.PUSH PRN ×4 (04:16→19:57)
--- NOTE | 2018-04-24 04:55 | XR ---
EXAM DATE: 04/24/2018 4:19 AM EDT AGE/SEX: 72 years / Male INDICATIONS: Respiratory disease. CLINICAL DATA: This is the patient's subsequent encounter. Patient reports that signs and symptoms h ave been present for 2 weeks and indicates a pain score of Nonresponsive. MEDICAL/SURGICAL HISTORY: . Hypertension. Diabetes. Bradycardia None. COMPARISON: [facility], CHEST 1V SINGLE AP, 04/23/2018. . FINDINGS: Patient has been extubated with NG tube removed. Significantly improved airspace disease in the right lower lung zone. Improved aeration of the left lower lung zone. Cardiomediastinal contours are withi n normal limits given portable technique. Remainder of the exam is unchanged. CONCLUSION: 1. Significantly improved airspace disease in the right lower lung zone. 2. Improved aeration of the left lower lung zone. Electronically signed by: Gabriel Noriega MD 04/24/2018 4:54 AM EDT
[2018-04-24 05:22] LABS: Hemoglobin 11.2 gm/dL (13.0-17.0); Mean Corpuscular HGB Conc 32.1 % (32.0-36.0); Mean Corpuscular Hemoglobin 25.5 pg (27.0-34.0); Mean Corpuscular Volume 79.5 fL (80.0-100.0); Platelet Count 226 th/mm3 (150-450); Red Cell Distribution Width 13.4 % (11.6-17.2); White Blood Count 11.1 th/mm3 (4.0-11.0)
[2018-04-24] MEDS: hydrALAZINE 50 MG Tablet PO SCH ×3 (05:28→23:52)
[2018-04-24 05:46] LABS: Albumin 2.4 g/dL (3.4-5.0); Anion Gap 8 meq/L (5-15); Aspartate Aminotransferase 35 U/L (15-37); Blood Urea Nitrogen 25 mg/dL (7-18); Calcium 8.7 mg/dL (8.5-10.1); Carbon Dioxide 32.2 meq/L (21.0-32.0); Chloride 110 meq/L (98-107); Glomerular Filtration Rate 60 mL/min (>89); Glucose,Random 141 mg/dL (74-106); Potassium 3.6 meq/L (3.5-5.1); Sodium 150 meq/L (136-145)
[2018-04-24 05:51] LABS: Alanine Aminotransferase 54 U/L (12-78); Alkaline Phosphatase 85 U/L (45-117); Total Protein 7.1 g/dL (6.4-8.2)
[2018-04-24] MEDS: Hyoscyamine Liq Drops 0.125 MG/ML 15 ML Bottle SL PRN ×2 (08:06→14:39)
[2018-04-24] MEDS: Famotidine PF Inj 20 MG/2 ML Vial IV.PUSH SCH ×2 (08:10→20:08)
[2018-04-24] MEDS: Enoxaparin Inj 40 MG/0.4 ML Syringe SQ SCH (08:12)
[2018-04-24] MEDS: Chlorhexidine 0.12% Oral Kit 15 ML UDC OROPHARYNG SCH ×2 (08:13→20:08)
[2018-04-24] MEDS: Insulin NovoLIN Regular Correctional Sugar Inj SQ SCH ×4 (08:22→20:16)
[2018-04-24] MEDS: Insulin Aspart Prot 70/30 1,000 UNITS/10 ML Vial SQ SCH ×2 (08:46→18:32)
[2018-04-24] MEDS: Hypromellose 0.3% Opth Gel 10 GM Bottle EACH EYE SCH ×4 (08:49→20:08)
[2018-04-24] MEDS: Glycerin Adult 2 GM Supp RECTAL SCH (08:50)
--- NOTE | 2018-04-24 08:54 | P.PNCC ---
Subjective Subjective Remarks/Hospital Course: 72yM presenting to the ED overnight on 04/16/18 with right leg weakness/ numbness and unsteady gait. The patient states that he woke up yesterday morning with difficulty moving his right leg and feeling "off balance". He reports that the symptoms did not improve over the course of the day, so he went to the emergency department, where he was found to have profound hypertension. The patient says that he has a history of hypertension and "white coat syndrome" but has never had a hypertensive emergency in the past. He denies facial droop, slurred speech, aphasia, difficulty swallowing, arm weakness/ numbness, or confusion. He has no history of CVA/ TIA in the past. H/O HTN, diabetes, anxiety SUBJ 04/18/18: Patient was transferred to [facility] today for deteriorating clinical condition. I evaluated patient in the ICU. Currently has significant right facial droop worsening hemiplegia unable to move right side even though sensation appears to be preserved. 0 out of 5 power on the right upper and lower extremity. Patient also has difficulty clearing secretions and has bilateral wheezing. CT did not show any significant change an MRI is pending at this time. I explained to the family including about acute risk of deterioration and need for airway protection. They expressed good understanding SUBJECTIVE: 04/19: T-max 102. Tachycardic. Minimal to no movement to right upper lower extremity. Likely aspirating. Discussed with in detail 30 minutes benefits and risks of intubation. She will bring antibiotic eyedrops for left eye today. Patient currently in 100 percent nonrebreather. She wishes to initiate antibiotic therapy first but aware that high risk of intubation. 04/20 patient now intubated sedated. Clearly aspirated yesterday and now with significant right lower lobe consolidation. Sputum culture is pending. CT head today shows evolving left upper brainstem infarct. 04/21: Patient remains intubated, on sedation lightening patient does follow commands with the left side, his remains closed. WBC count slowly improving. Blood pressure control is within target but on the higher end of the limit. Will resume his home medication of clonidine 0.3 mg q8h 04/22: Patient remains intubated slightly sedated with propofol 10 mcg/kg/min. Blood pressure on the higher side. Restart hydralazine 100 mg p.o. every 8 hours. Attempt CPAP trials check chest x-ray. 04/23: Remains off all sedation more than 18 hours now. Opens eyes to command follows commands on the left upper and lower extremity. Tolerating CPAP mild cuff leak. Chest x-ray remains unchanged but oxygenation is good. Will give Lasix 60 mg IV 1 attempt extubation 04/24: Patient was extubated yesterday tolerating well chest x-ray improving. Using Levsin as needed for increased secretions. Patient is more awake following commands on the left side. Son at the bedside updated. Speech for swallow eval if failed NG tube and start tube feeding along with p.o. meds and free water . Objective Vital Signs / I&O: Vital Signs 04/23/18 09:36 04/23/18 10:00 04/23/18 10:28 Temperature Pulse Rate 67 56 L 81 Respiratory Rate 26 H 22 Blood Pressure Pulse Oximetry 04/23/18 12:00 04/23/18 14:00 04/23/18 16:00 Temperature 99.8 F H 99.7 F H Pulse Rate 70 67 75 Respiratory Rate 22 23 Blood Pressure 152/67 H 168/72 H Pulse Oximetry 93 L 96 04/23/18 18:00 04/23/18 20:00 04/23/18 20:16 Temperature 101.1 F H Pulse Rate 72 78 85 Respiratory Rate 21 23 Blood Pressure 176/74 H Pulse Oximetry 95 04/23/18 22:00 04/24/18 00:00 04/24/18 02:00 Temperature 99.6 F Pulse Rate 86 70 68 Respiratory Rate 20 Blood Pressure 158/70 H Pulse Oximetry 98 04/24/18 03:10 04/24/18 03:11 04/24/18 04:00 Temperature 99.0 F Pulse Rate 68 70 Respiratory Rate 16 17 Blood Pressure 140/65 Pulse Oximetry 99 97 04/24/18 06:00 Temperature Pulse Rate 78 Respiratory Rate Blood Pressure Pulse Oximetry Intake & Output 04/23/18 04/24/18 04/24/18 18:59 06:59 18:59 Intake Total 450 / 450 1700 / 1700 250 / 250 Output Total 1800 / 1800 700 / 700 Balance -1350 / -1350 1000 / 1000 250 / 250 Weight 97.7 kg Intake: IV 450 / 450 1700 / 1700 250 / 250 Cardene Inj 25 MG In NS Inj 240 250 / 250 1500 / 1500 250 / 250 ML @ 5 MG/HR 50 mls/hr IV.CONT TITRATE PRN Rx#:[id number] Zosyn 4.5 GM Premix 4.5 gm In 200 / 200 200 / 200 100 ml @ 200 mls/hr IV.SIG Q6H [facility] Rx#:[id number] Output: Urine 1800 / 1800 Urine Amount (Catheter) 700 / 700 Condom 700 / 700 Other: # Bowel Movements 0 Result Diagrams: 04/24/18 05:07 04/24/18 05:07 Objective Remarks: GEN: Well-nourished well-developed male, currently on NC HEENT: NCAT, pupils 3 mm and reactive bilaterally, exudate from left eye improved, right-sided facial droop present NECK: Trachea midline, no carotid bruits CARDIO: S1-S2 normal no murmurs PULM: Air Entry diminished bilateral bases right greater than left, no wheezes. ABD: Soft, protuberant, non-tender in all quadrants EXT: No significant peripheral edema SKIN: No rashes or lesions NEURO: Eyes are spontaneously open. Right-sided facial droop. 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 Morton -MRI brain revealed evolving left cerebellar peduncle CVA 8 mm, CT head 04/20 shows evolving left brainstem stroke -CT/ CTA head and neck reviewed, no flow-limiting lesions noted, right M2 50% stenosis. Repeat CT angiogram 04/18 unchanged -Patient presented with unclear time of onset so was not a candidate for tPA -Permissive hypertension now Goal 140 -160 -Holding home dose of diazepam 5 mg daily -PT/OT/speech CARDIO: Hypertensive emergency History of essential hypertension -Profoundly hypertensive with relative bradycardia (HR in 30s-40s) -Continue to keep SBP <140-160 -ASA 81 daily -At home on clonidine 0.3 mg twice daily and enalapril 20 mg daily. Start hydrochlorothiazide 35 mg daily for blood pressure control -Currently on Norvasc 10 mg daily, clonidine at 0.3 mg q8h, hydralazine 100 mg every 8 hours -Use nicardipine infusion, IV enalaprilat, IV hydralazine and IV labetalol as needed -ECHO revealed EF 55-60%. -Cholesterol 140. LDL 83. Continue statin PULM: Acute hypoxemic respiratory failure-resolved Aspiration pneumonia right lower lobe Compromised airway protection due to stroke -Chest x-ray right lower lobe infiltrate, chest x-ray today 04/24/2018 shows improving bibasilar and full. -Intubated 04/19/2018 for lack of airway protection and hypoxemic respiratory failure, extubated 04/23/18 tolerating well now -DuoNeb every 4 hours scheduled and as needed. Continue EzPAP -Broad-spectrum antibiotics with Zosyn GI: -Place NG and resume tube feeds with Glucerna, if patient failed swallow eval -IV famotidine-holding tube feeds for possible extubation -Glycerin suppository daily for bowel regimen, having BM /RENAL: Acute kidney injury -IV Lasix 60 mg x1 given yesterday 04/23/2018 -Start hydrochlorothiazide 35 mg daily for blood pressure control -Monitor urine output, Accurate I's and O's -Electrolyte replacement per protocol ID: Aspiration pneumonia Sepsis-resolving Currently on piperacillin/tazobactam-complete 7 day treatment Vanc and azithromycin discontinued 04/21/2018 Follow-up blood cultures 2, sputum and UA ordered negative today HEME: Leukocytosis -Monitor CBC daily follow trends. ENDO: DMII Hemoglobin A1c 9.0. Hold metformin 1000 mg twice daily Continue sliding scale insulin Accu-Cheks with Novolin R every 6 hours Continue NovoLog NPH 70/30 18 units twice daily and sliding scale insulin Novolin R PROPH: -Enoxaparin, SCDs -IV famotidine for stress ulcer prophylaxis Level 3 PT/OT/Speech. Continue ICU care due to acute risk of decompensation Code Status: Full Progress Note: Quality - Stroke Contraindication Not Initiating IV-Tpa: Contraindicated Symptom Onset Unknown: Yes Rehab Services Assessed: Physical therapy assessment
[2018-04-24] MEDS: amLODIPine 10 MG Tablet PO SCH (10:31)
[2018-04-24] MEDS: hydroCHLOROthiazide 25 MG Tablet PO SCH (10:31)
--- NOTE | 2018-04-24 10:38 | XR ---
EXAM DATE: 04/24/2018 10:35 AM EDT AGE/SEX: 72 years / Male INDICATIONS: Evaluate NG tube placement. CLINICAL DATA: This is the patient's initial encounter. Patient reports that signs and symptoms have been present for 1 day and indicates a pain score of Nonresponsive. MEDICAL/SURGICAL HISTORY: Non-responsive. Non-responsive. COMPARISON: No prior exams available for comparison. FINDINGS: Single AP view of the abdomen. Gastric tube is in place with the tip in the proximal gastric body re gion. CONCLUSION: Nasogastric tube tip in the region of the proximal gastric body. Electronically signed by: Timur Edouard MD 04/24/2018 10:37 AM EDT
[2018-04-24] MEDS: niCARdipine Inj 50 MG in Sodium Chlor 0.9% Inj 480 ML IV.CONT PRN ×4 (13:27→22:25)
[2018-04-25] MEDS: Oral Hygiene Kit OROPHARYNG SCH ×2 (00:24→03:54)
[2018-04-25] MEDS: niCARdipine Inj 50 MG in Sodium Chlor 0.9% Inj 480 ML IV.CONT PRN ×7 (01:32→22:08)
[2018-04-25] MEDS: Piperacil/Tazo 4.5 GM Premix 4.5 GM/100 ML BAG IV.SIG SCH ×4 (02:23→20:27)
[2018-04-25 04:44] LABS: Hematocrit 35.3 % (39.0-51.0); Hemoglobin 11.3 gm/dL (13.0-17.0); Mean Corpuscular HGB Conc 31.9 % (32.0-36.0); Mean Corpuscular Hemoglobin 25.5 pg (27.0-34.0); Mean Platelet Volume 8.1 fL (7.0-11.0); Platelet Count 251 th/mm3 (150-450); Red Blood Count 4.41 mil/mm3 (4.50-5.90); Red Cell Distribution Width 13.7 % (11.6-17.2); White Blood Count 11.1 th/mm3 (4.0-11.0)
[2018-04-25 05:11] LABS: Alanine Aminotransferase 55 U/L (12-78); Albumin 2.4 g/dL (3.4-5.0); Anion Gap 8 meq/L (5-15); Aspartate Aminotransferase 35 U/L (15-37); Blood Urea Nitrogen 33 mg/dL (7-18); Calcium 8.6 mg/dL (8.5-10.1); Carbon Dioxide 30.7 meq/L (21.0-32.0); Chloride 113 meq/L (98-107); Glomerular Filtration Rate 53 mL/min (>89); Glucose,Random 212 mg/dL (74-106); Magnesium 2.9 mg/dL (1.5-2.5); Potassium 3.7 meq/L (3.5-5.1); Sodium 152 meq/L (136-145)
[2018-04-25 05:13] LABS: Alkaline Phosphatase 101 U/L (45-117); Total Protein 7.1 g/dL (6.4-8.2)
[2018-04-25] MEDS: hydrALAZINE 50 MG Tablet PO SCH ×3 (06:03→22:09)
--- NOTE | 2018-04-25 07:22 | P.PNCC ---
Subjective Subjective Remarks/Hospital Course: 72yM presenting to the ED overnight on 04/16/18 with right leg weakness/ numbness and unsteady gait. The patient states that he woke up yesterday morning with difficulty moving his right leg and feeling "off balance". He reports that the symptoms did not improve over the course of the day, so he went to the emergency department, where he was found to have profound hypertension. The patient says that he has a history of hypertension and "white coat syndrome" but has never had a hypertensive emergency in the past. He denies facial droop, slurred speech, aphasia, difficulty swallowing, arm weakness/ numbness, or confusion. He has no history of CVA/ TIA in the past. H/O HTN, diabetes, anxiety SUBJ 04/18/18: Patient was transferred to [facility] today for deteriorating clinical condition. I evaluated patient in the ICU. Currently has significant right facial droop worsening hemiplegia unable to move right side even though sensation appears to be preserved. 0 out of 5 power on the right upper and lower extremity. Patient also has difficulty clearing secretions and has bilateral wheezing. CT did not show any significant change an MRI is pending at this time. I explained to the family including about acute risk of deterioration and need for airway protection. They expressed good understanding SUBJECTIVE: 04/19: T-max 102. Tachycardic. Minimal to no movement to right upper lower extremity. Likely aspirating. Discussed with in detail 30 minutes benefits and risks of intubation. She will bring antibiotic eyedrops for left eye today. Patient currently in 100 percent nonrebreather. She wishes to initiate antibiotic therapy first but aware that high risk of intubation. 04/20 patient now intubated sedated. Clearly aspirated yesterday and now with significant right lower lobe consolidation. Sputum culture is pending. CT head today shows evolving left upper brainstem infarct. 04/21: Patient remains intubated, on sedation lightening patient does follow commands with the left side, his remains closed. WBC count slowly improving. Blood pressure control is within target but on the higher end of the limit. Will resume his home medication of clonidine 0.3 mg q8h 04/22: Patient remains intubated slightly sedated with propofol 10 mcg/kg/min. Blood pressure on the higher side. Restart hydralazine 100 mg p.o. every 8 hours. Attempt CPAP trials check chest x-ray. 04/23: Remains off all sedation more than 18 hours now. Opens eyes to command follows commands on the left upper and lower extremity. Tolerating CPAP mild cuff leak. Chest x-ray remains unchanged but oxygenation is good. Will give Lasix 60 mg IV 1 attempt extubation 04/24: Patient was extubated yesterday tolerating well chest x-ray improving. Using Levsin as needed for increased secretions. Patient is more awake following commands on the left side. Son at the bedside updated. Speech for swallow eval if failed NG tube and start tube feeding along with p.o. meds and free water. 04/25: NG tube in place, tube feeding and meds easily delivered. Extubated 24 hours ago and breathing comfortably, protects airway well. Remains on Cardene 20 mg/h, will start an janie inhibitor and twice daily beta-tresa. . Objective Vital Signs / I&O: Vital Signs 04/24/18 08:00 04/24/18 10:00 04/24/18 11:50 Temperature 99.1 F Pulse Rate 78 110 H 93 H Respiratory Rate 21 20 Blood Pressure 168/72 H Pulse Oximetry 99 04/24/18 12:00 04/24/18 14:00 04/24/18 16:00 Temperature 99.2 F 100.1 F H Pulse Rate 96 H 82 112 H Respiratory Rate 20 23 Blood Pressure 167/71 H 159/71 H Pulse Oximetry 97 97 04/24/18 18:00 04/24/18 20:00 04/24/18 20:39 Temperature 98.8 F Pulse Rate 104 H 104 H 77 Respiratory Rate 22 20 Blood Pressure 182/74 H Pulse Oximetry 97 04/24/18 20:40 04/24/18 22:00 04/25/18 00:00 Temperature 98.4 F Pulse Rate 78 75 Respiratory Rate 19 Blood Pressure 153/67 H Pulse Oximetry 97 97 04/25/18 02:00 04/25/18 02:51 04/25/18 04:00 Temperature 98.5 F Pulse Rate 68 76 80 Respiratory Rate 20 20 Blood Pressure 156/67 H Pulse Oximetry 97 04/25/18 06:00 Temperature Pulse Rate 84 Respiratory Rate Blood Pressure Pulse Oximetry Intake & Output 04/24/18 04/25/18 04/25/18 18:59 06:59 18:59 Intake Total 2550 / 2550 2709 / 2709 Output Total 400 / 400 780 / 780 Balance 2150 / 2150 1929 / 1929 Weight 100.8 kg Intake: IV 2200 / 2200 2200 / 2200 Cardene Inj 25 MG In NS Inj 240 1000 / 1000 ML @ 5 MG/HR 50 mls/hr IV.CONT TITRATE PRN Rx#:[id number] Cardene Inj 50 MG In NS Inj 480 1000 / 1000 2000 / 2000 ML @ 5 MG/HR 50 mls/hr IV.CONT TITRATE PRN Rx#:[id number] Zosyn 4.5 GM Premix 4.5 gm In 200 / 200 200 / 200 100 ml @ 200 mls/hr IV.SIG Q6H SAHARA Rx#:[id number] Tube Feeding 310 / 310 359 / 359 Tube Irrigant 40 / 40 150 / 150 Output: Urine Amount (Catheter) 400 / 400 780 / 780 Condom 400 / 400 780 / 780 Gastric Drainage 0 / 0 Orogastric Tube 0 / 0 Other: Date of Last Bowel Movement 04/23/18 04/23/18 # Bowel Movements 0 Result Diagrams: 04/25/18 03:54 04/25/18 03:54 Objective Remarks: GEN: Well-nourished well-developed male, currently on NC HEENT: NCAT, pupils 2 mm and reactive bilaterally, exudate from left eye improved, right-sided facial droop present NECK: Trachea midline, no carotid bruits CARDIO: S1-S2 normal no murmurs, no JVD. PULM: Air Entry diminished bilateral bases right greater than left, no wheezes. ABD: Soft, protuberant, non-tender in all quadrants, no guarding, bowel sounds active. EXT: No significant peripheral edema, warm and well-perfused SKIN: No rashes or lesions NEURO: Eyes are spontaneously open. Right-sided facial droop. 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 Morton -MRI brain revealed evolving left cerebellar peduncle CVA 8 mm, CT head 04/20 shows evolving left brainstem stroke -CT/ CTA head and neck reviewed, no flow-limiting lesions noted, right M2 50% stenosis. Repeat CT angiogram 04/18 unchanged -Patient presented with unclear time of onset so was not a candidate for tPA -Permissive hypertension now Goal 140 -160 -Holding home dose of diazepam 5 mg daily -PT/OT/speech -Still requiring Cardene 20 mg/h, will start beta-tresa and JANIE inhibitor. Continue blood pressure goals. CARDIO: Hypertensive emergency History of essential hypertension -Profoundly hypertensive with relative bradycardia (HR in 30s-40s) -Continue to keep SBP <140-160 -ASA 81 daily -At home on clonidine 0.3 mg twice daily and enalapril 20 mg daily. Start hydrochlorothiazide 25 mg daily for blood pressure control -Currently on Norvasc 10 mg daily, clonidine at 0.3 mg q8h, hydralazine 100 mg every 8 hours -Use nicardipine infusion, IV enalaprilat, IV hydralazine and IV labetalol as needed -ECHO revealed EF 55-60%. -Cholesterol 140. LDL 83. Continue statin -Taper Cardene down as JANIE inhibitor and beta-tresa take effect. Continue oral hydralazine for now. PULM: Acute hypoxemic respiratory failure-resolved Aspiration pneumonia right lower lobe Compromised airway protection due to stroke -Chest x-ray right lower lobe infiltrate, chest x-ray today 04/24/2018 shows improving bibasilar and full. -Intubated 04/19/2018 for lack of airway protection and hypoxemic respiratory failure, extubated 04/23/18 tolerating well now -DuoNeb every 4 hours scheduled and as needed. Continue EzPAP -Broad-spectrum antibiotics with Zosyn -Extubated 04/24 GI: -Place NG and resume tube feeds with Glucerna, if patient failed swallow eval -IV famotidine-holding tube feeds for possible extubation -Glycerin suppository daily for bowel regimen, having BM /RENAL: Acute kidney injury -IV Lasix 60 mg x1 given yesterday 04/23/2018 -Start hydrochlorothiazide 25 mg daily for blood pressure control -Monitor urine output, Accurate I's and O's -Electrolyte replacement per protocol -Elevated creatinine on arrival, improving, follow closely. ID: Aspiration pneumonia Sepsis-resolving Currently on piperacillin/tazobactam-complete 7 day treatment Vanc and azithromycin discontinued 04/21/2018 Follow-up blood cultures 2, sputum and UA ordered negative today HEME: Leukocytosis -Monitor CBC daily follow trends. ENDO: DMII Hemoglobin A1c 9.0. Hold metformin 1000 mg twice daily Continue sliding scale insulin Accu-Cheks with Novolin R every 6 hours Continue NovoLog NPH 70/30 18 units twice daily and sliding scale insulin Novolin R PROPH: -Enoxaparin, SCDs -IV famotidine for stress ulcer prophylaxis PT/OT/Speech. Continue ICU care due to acute risk of decompensation Overall impression: Breathing comfortably and protects airway after extubation. Severe hypertension remains ongoing problem. Presently adjusting blood pressure medications. Progress Note: Quality - Stroke Contraindication Not Initiating IV-Tpa: Contraindicated Symptom Onset Unknown: Yes Rehab Services Assessed: Physical therapy assessment
[2018-04-25] MEDS: Metoprolol Tartrate 50 MG Tablet PO SCH ×2 (09:39→20:26)
[2018-04-25] MEDS: Enoxaparin Inj 40 MG/0.4 ML Syringe SQ SCH (09:39)
[2018-04-25] MEDS: hydroCHLOROthiazide 25 MG Tablet PO SCH (09:39)
[2018-04-25] MEDS: Insulin NovoLIN Regular Correctional Sugar Inj SQ SCH ×4 (10:56→20:43)
[2018-04-25] MEDS: Insulin Aspart Prot 70/30 1,000 UNITS/10 ML Vial SQ SCH (10:58)
[2018-04-25] MEDS: Chlorhexidine 0.12% Oral Kit 15 ML UDC OROPHARYNG SCH ×2 (11:56→20:23)
[2018-04-25] MEDS: Hypromellose 0.3% Opth Gel 10 GM Bottle EACH EYE SCH ×3 (11:57→20:27)
[2018-04-25] MEDS: Famotidine PF Inj 20 MG/2 ML Vial IV.PUSH SCH ×2 (11:58→20:26)
[2018-04-25] MEDS: Lisinopril 10 MG Tablet PO SCH ×2 (11:58→20:26)
[2018-04-25] MEDS: amLODIPine 10 MG Tablet PO SCH (11:58)
[2018-04-25] MEDS: Glycerin Adult 2 GM Supp RECTAL SCH (11:58)
[2018-04-26] MEDS: niCARdipine Inj 50 MG in Sodium Chlor 0.9% Inj 480 ML IV.CONT PRN ×7 (01:48→23:57)
[2018-04-26] MEDS: Piperacil/Tazo 4.5 GM Premix 4.5 GM/100 ML BAG IV.SIG SCH ×2 (02:02→07:44)
[2018-04-26] MEDS: Labetalol HCl Inj 100 MG/20 ML Vial IV.PUSH PRN ×2 (03:30→19:47)
[2018-04-26 04:35] LABS: Calcium 8.4 mg/dL (8.5-10.1); Carbon Dioxide 29.1 meq/L (21.0-32.0); Potassium 3.7 meq/L (3.5-5.1)
[2018-04-26] MEDS: hydrALAZINE 50 MG Tablet PO SCH ×3 (05:03→21:14)
--- NOTE | 2018-04-26 08:13 | P.PNCC ---
Subjective Subjective Remarks/Hospital Course: 72yM presenting to the ED overnight on 04/16/18 with right leg weakness/ numbness and unsteady gait. The patient states that he woke up yesterday morning with difficulty moving his right leg and feeling "off balance". He reports that the symptoms did not improve over the course of the day, so he went to the emergency department, where he was found to have profound hypertension. The patient says that he has a history of hypertension and "white coat syndrome" but has never had a hypertensive emergency in the past. He denies facial droop, slurred speech, aphasia, difficulty swallowing, arm weakness/ numbness, or confusion. He has no history of CVA/ TIA in the past. H/O HTN, diabetes, anxiety SUBJ 04/18/18: Patient was transferred to [facility] today for deteriorating clinical condition. I evaluated patient in the ICU. Currently has significant right facial droop worsening hemiplegia unable to move right side even though sensation appears to be preserved. 0 out of 5 power on the right upper and lower extremity. Patient also has difficulty clearing secretions and has bilateral wheezing. CT did not show any significant change an MRI is pending at this time. I explained to the family including about acute risk of deterioration and need for airway protection. They expressed good understanding SUBJECTIVE: 04/19: T-max 102. Tachycardic. Minimal to no movement to right upper lower extremity. Likely aspirating. Discussed with in detail 30 minutes benefits and risks of intubation. She will bring antibiotic eyedrops for left eye today. Patient currently in 100 percent nonrebreather. She wishes to initiate antibiotic therapy first but aware that high risk of intubation. 04/20 patient now intubated sedated. Clearly aspirated yesterday and now with significant right lower lobe consolidation. Sputum culture is pending. CT head today shows evolving left upper brainstem infarct. 04/21: Patient remains intubated, on sedation lightening patient does follow commands with the left side, his remains closed. WBC count slowly improving. Blood pressure control is within target but on the higher end of the limit. Will resume his home medication of clonidine 0.3 mg q8h 04/22: Patient remains intubated slightly sedated with propofol 10 mcg/kg/min. Blood pressure on the higher side. Restart hydralazine 100 mg p.o. every 8 hours. Attempt CPAP trials check chest x-ray. 04/23: Remains off all sedation more than 18 hours now. Opens eyes to command follows commands on the left upper and lower extremity. Tolerating CPAP mild cuff leak. Chest x-ray remains unchanged but oxygenation is good. Will give Lasix 60 mg IV 1 attempt extubation 04/24: Patient was extubated yesterday tolerating well chest x-ray improving. Using Levsin as needed for increased secretions. Patient is more awake following commands on the left side. Son at the bedside updated. Speech for swallow eval if failed NG tube and start tube feeding along with p.o. meds and free water. 04/25: NG tube in place, tube feeding and meds easily delivered. Extubated 24 hours ago and breathing comfortably, protects airway well. Remains on Cardene 20 mg/h, will start an janie inhibitor and twice daily beta-tresa. 04/26: Remains on Cardene 15 mg/h. Will add Cardura to regimen. Glucose intolerance continues, will increase long-acting insulin dose. Tube feeds are Glucerna 0.5. Right side remains paretic. . Objective Vital Signs / I&O: Vital Signs 04/25/18 08:00 04/25/18 08:42 04/25/18 10:00 Temperature Pulse Rate 106 H 63 Respiratory Rate 16 24 Blood Pressure Pulse Oximetry 98 04/25/18 12:00 04/25/18 12:16 04/25/18 16:00 Temperature 98 F 98 F Pulse Rate 78 69 Respiratory Rate 20 21 18 Blood Pressure 147/67 H 151/65 H Pulse Oximetry 97 96 04/25/18 16:41 04/25/18 18:00 04/25/18 20:00 Temperature 98.7 F Pulse Rate 75 75 64 Respiratory Rate 22 18 Blood Pressure 151/69 H Pulse Oximetry 97 04/25/18 22:00 04/25/18 22:03 04/26/18 00:00 Temperature 98.9 F Pulse Rate 62 62 68 Respiratory Rate 24 18 Blood Pressure 143/62 H Pulse Oximetry 97 04/26/18 01:07 04/26/18 02:00 04/26/18 04:00 Temperature 98.7 F Pulse Rate 71 68 64 Respiratory Rate 20 18 Blood Pressure 156/60 H Pulse Oximetry 95 04/26/18 04:15 Temperature Pulse Rate 64 Respiratory Rate 20 Blood Pressure Pulse Oximetry 97 Intake & Output 04/25/18 04/26/18 04/26/18 18:59 06:59 18:59 Intake Total 2217 / 2217 1700 / 1700 Output Total 600 / 600 Balance 1617 / 1617 1700 / 1700 Intake: IV 1700 / 1700 1700 / 1700 Cardene Inj 50 MG In NS Inj 480 1500 / 1500 1500 / 1500 ML @ 5 MG/HR 50 mls/hr IV.CONT TITRATE PRN Rx#:[id number] Zosyn 4.5 GM Premix 4.5 gm In 200 / 200 200 / 200 100 ml @ 200 mls/hr IV.SIG Q6H SAHARA Rx#:[id number] Tube Feeding 517 / 517 Output: Urine Amount (Catheter) 600 / 600 Condom 600 / 600 Other: Date of Last Bowel Movement 04/23/18 04/23/18 Result Diagrams: 04/25/18 03:54 04/26/18 03:56 Objective Remarks: GEN: Well-nourished well-developed male, currently on NC HEENT: NCAT, pupils 2 mm and reactive bilaterally, right-sided facial droop persists NECK: Trachea midline, no carotid bruits. Airway widely patent, no obstructive noises. CARDIO: S1-S2 normal no murmurs, no JVD. PULM: Air entry diminished bilateral bases, no wheezes. Comfortable respiratory pattern ABD: Soft, protuberant, non-tender, no guarding, bowel sounds active. EXT: No significant peripheral edema, warm and well-perfused SKIN: No rashes or lesions NEURO: Eyes are spontaneously open. Right-sided facial droop. Following commands on the left side, still flaccid on the right side. Tracks with eyes. 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 Morton -MRI brain revealed evolving left cerebellar peduncle CVA 8 mm, CT head 04/20 shows evolving left brainstem stroke -CT/ CTA head and neck reviewed, no flow-limiting lesions noted, right M2 50% stenosis. Repeat CT angiogram 04/18 unchanged -Patient presented with unclear time of onset so was not a candidate for tPA -Permissive hypertension now Goal 140 -160 -Holding home dose of diazepam 5 mg daily -PT/OT/speech -Still requiring Cardene 15 mg/h, will start beta-tresa and JANIE inhibitor. Continue blood pressure goals. CARDIO: Hypertensive emergency History of essential hypertension -Profoundly hypertensive with relative bradycardia (HR in 30s-40s) -Continue to keep SBP <140-160 -ASA 81 daily -At home on clonidine 0.3 mg twice daily and enalapril 20 mg daily. Start hydrochlorothiazide 25 mg daily for blood pressure control -Currently on Norvasc 10 mg daily, clonidine at 0.3 mg q8h, hydralazine 100 mg every 8 hours -Use nicardipine infusion, IV enalaprilat, IV hydralazine and IV labetalol as needed -ECHO revealed EF 55-60%. -Cholesterol 140. LDL 83. Continue statin -Taper Cardene down as JANIE inhibitor and beta-tresa take effect. Continue oral hydralazine for now. Add Cardura, double lisinopril PULM: Acute hypoxemic respiratory failure-resolved Aspiration pneumonia right lower lobe Compromised airway protection due to stroke -Chest x-ray right lower lobe infiltrate, chest x-ray today 04/24/2018 shows improving bibasilar and full. -Intubated 04/19/2018 for lack of airway protection and hypoxemic respiratory failure, extubated 04/23/18 tolerating well now -DuoNeb every 4 hours scheduled and as needed. Continue EzPAP -Broad-spectrum antibiotics with Zosyn -Extubated 04/24 GI: -Place NG and resume tube feeds with Glucerna, if patient failed swallow eval -IV famotidine-holding tube feeds for possible extubation -Glycerin suppository daily for bowel regimen, having BM /RENAL: Acute kidney injury -IV Lasix 60 mg x1 given yesterday 04/23/2018 -Start hydrochlorothiazide 25 mg daily for blood pressure control -Monitor urine output, Accurate I's and O's -Electrolyte replacement per protocol -Elevated creatinine on arrival, improving, follow closely. ID: Aspiration pneumonia Sepsis-resolving Currently on piperacillin/tazobactam-complete 7 day treatment Vanc and azithromycin discontinued 04/21/2018 Follow-up blood cultures 2, sputum and UA ordered negative today HEME: Leukocytosis -Monitor CBC daily follow trends. ENDO: DMII Hemoglobin A1c 9.0. Hold metformin 1000 mg twice daily Continue sliding scale insulin Accu-Cheks with Novolin R every 6 hours Continue NovoLog NPH 70/30 18 units twice daily and sliding scale insulin Novolin R PROPH: -Enoxaparin, SCDs -IV famotidine for stress ulcer prophylaxis PT/OT/Speech. Continue ICU care due to acute risk of decompensation Overall impression: Breathing comfortably and protects airway after extubation. Severe hypertension remains ongoing problem. Presently adjusting blood pressure medications and weaning off Cardene. Progress Note: Quality - Stroke Contraindication Not Initiating IV-Tpa: Contraindicated Symptom Onset Unknown: Yes Rehab Services Assessed: Physical therapy assessment
[2018-04-26] MEDS: Insulin Aspart Prot 70/30 1,000 UNITS/10 ML Vial SQ SCH ×3 (08:14→18:55)
[2018-04-26] MEDS: Insulin NovoLIN Regular Correctional Sugar Inj SQ SCH ×4 (08:14→20:34)
[2018-04-26] MEDS: Glycerin Adult 2 GM Supp RECTAL SCH (08:19)
[2018-04-26] MEDS: Lisinopril 10 MG Tablet PO SCH ×2 (08:19→20:33)
[2018-04-26] MEDS: amLODIPine 10 MG Tablet PO SCH (08:19)
[2018-04-26] MEDS: Enoxaparin Inj 40 MG/0.4 ML Syringe SQ SCH (08:20)
[2018-04-26] MEDS: hydroCHLOROthiazide 25 MG Tablet PO SCH (08:20)
[2018-04-26] MEDS: Famotidine PF Inj 20 MG/2 ML Vial IV.PUSH SCH ×2 (08:20→20:34)
[2018-04-26] MEDS: Metoprolol Tartrate 50 MG Tablet PO SCH ×2 (08:20→20:33)
[2018-04-26] MEDS ORDERED: Doxazosin 1 MG Tablet PO SCH (09:00)
[2018-04-26] MEDS: Hypromellose 0.3% Opth Gel 10 GM Bottle EACH EYE SCH ×2 (15:52→20:33)
[2018-04-26 19:56] LABS: ABG Base Excess 5.1 mmol/L (-2-2); ABG PCO2 41 mmHg (38-42); ABG PO2 93 mmHg (61-120)
--- NOTE | 2018-04-26 20:23 | CT ---
EXAM DATE: 04/26/2018 8:17 PM EDT AGE/SEX: 72 years / Male INDICATIONS: Altered mental status, right leg weakness. CLINICAL DATA: This is the patient's initial encounter. Patient reports that signs and symptoms have been present for 1 day and indicates a pain score of 3/10. MEDICAL/SURGICAL HISTORY: Hypertension. Diabetes. None. RADIATION DOSE: 44.81 CTDI (mGy) ; Patient motion COMPARISON: [facility] – [place] HEAD W/O CONTRAST, 04/20/2018. . TECHNIQUE: CT of the head without contrast. Using automated exposure control and adjustment of the mA and/or kV according to patient size, radiation dose was kept as low as reasonably achievable to ob tain optimal diagnostic quality images. DICOM format image data is available electronically for revi ew and comparison. FINDINGS: Cerebrum: Oval 2.4 cm hypodensity in the right basal ganglia indicating an evolving right basal gang kandice infarct, subacute. Left-sided midbrain infarct again seen. No evidence of acute intracranial hemo rrhage or extra-axial fluid collection. No midline shift. There is mild mass effect on the right late ral ventricle from the area of the right basal ganglia infarct. Posterior Fossa: The cerebellum and brainstem are intact. The 4th ventricle is midline. The cerebe llopontine angle is unremarkable. Extracranial: The visualized portion of the orbits is intact. Skull: The calvaria is intact. No evidence of skull fracture. CONCLUSION: 1. Evolving 2 cm right basal ganglia infarct, subacute. Mild mass effect but no midline shift. 2. Previously noted left-sided midbrain infarct again seen. . Electronically signed by: Timur Edouard MD 04/26/2018 8:22 PM EDT
[2018-04-27] MEDS: Labetalol HCl Inj 100 MG/20 ML Vial IV.PUSH PRN ×3 (01:48→22:21)
[2018-04-27] MEDS: niCARdipine Inj 50 MG in Sodium Chlor 0.9% Inj 480 ML IV.CONT PRN ×4 (03:18→15:09)
[2018-04-27 05:04] LABS: Calcium 8.6 mg/dL (8.5-10.1); Carbon Dioxide 30.6 meq/L (21.0-32.0); Potassium 3.5 meq/L (3.5-5.1)
[2018-04-27] MEDS: hydrALAZINE 50 MG Tablet PO SCH ×3 (05:11→21:04)
--- NOTE | 2018-04-27 07:23 | P.PNCC ---
Subjective Subjective Remarks/Hospital Course: 72yM presenting to the ED overnight on 04/16/18 with right leg weakness/ numbness and unsteady gait. The patient states that he woke up yesterday morning with difficulty moving his right leg and feeling "off balance". He reports that the symptoms did not improve over the course of the day, so he went to the emergency department, where he was found to have profound hypertension. The patient says that he has a history of hypertension and "white coat syndrome" but has never had a hypertensive emergency in the past. He denies facial droop, slurred speech, aphasia, difficulty swallowing, arm weakness/ numbness, or confusion. He has no history of CVA/ TIA in the past. H/O HTN, diabetes, anxiety SUBJ 04/18/18: Patient was transferred to [facility] today for deteriorating clinical condition. I evaluated patient in the ICU. Currently has significant right facial droop worsening hemiplegia unable to move right side even though sensation appears to be preserved. 0 out of 5 power on the right upper and lower extremity. Patient also has difficulty clearing secretions and has bilateral wheezing. CT did not show any significant change an MRI is pending at this time. I explained to the family including about acute risk of deterioration and need for airway protection. They expressed good understanding SUBJECTIVE: 04/19: T-max 102. Tachycardic. Minimal to no movement to right upper lower extremity. Likely aspirating. Discussed with in detail 30 minutes benefits and risks of intubation. She will bring antibiotic eyedrops for left eye today. Patient currently in 100 percent nonrebreather. She wishes to initiate antibiotic therapy first but aware that high risk of intubation. 04/20 patient now intubated sedated. Clearly aspirated yesterday and now with significant right lower lobe consolidation. Sputum culture is pending. CT head today shows evolving left upper brainstem infarct. 04/21: Patient remains intubated, on sedation lightening patient does follow commands with the left side, his remains closed. WBC count slowly improving. Blood pressure control is within target but on the higher end of the limit. Will resume his home medication of clonidine 0.3 mg q8h 04/22: Patient remains intubated slightly sedated with propofol 10 mcg/kg/min. Blood pressure on the higher side. Restart hydralazine 100 mg p.o. every 8 hours. Attempt CPAP trials check chest x-ray. 04/23: Remains off all sedation more than 18 hours now. Opens eyes to command follows commands on the left upper and lower extremity. Tolerating CPAP mild cuff leak. Chest x-ray remains unchanged but oxygenation is good. Will give Lasix 60 mg IV 1 attempt extubation 04/24: Patient was extubated yesterday tolerating well chest x-ray improving. Using Levsin as needed for increased secretions. Patient is more awake following commands on the left side. Son at the bedside updated. Speech for swallow eval if failed NG tube and start tube feeding along with p.o. meds and free water. 04/25: NG tube in place, tube feeding and meds easily delivered. Extubated 24 hours ago and breathing comfortably, protects airway well. Remains on Cardene 20 mg/h, will start an beata inhibitor and twice daily beta-tresa. 04/26: Remains on Cardene 15 mg/h. Will add Cardura to regimen. Glucose intolerance continues, will increase long-acting insulin dose. Tube feeds are Glucerna 0.5. Right side remains paretic. 04/27: Patient became more lethargic yesterday evening, a stat repeat CT showed evolving 2 cm right basal ganglia infarct, subacute. Mild mass effect but no midline shift. Previously noted left-sided midbrain infarct again seen. Sodium is 156- will maintain high sodium. Remains on Cardene infusion. concerned about lisinopril causing some tongue swelling. I will discontinue lisinopril, increase Cardura to 4 mg daily, increase metoprolol to 50 mg every 8 hours. Patient remains lethargic but appears to be protecting airway. Discussed with Dr. Morton will start IV heparin ischemic stroke protocol. Patient is at high risk for decompensation and requiring endotracheal intubation family made aware of change in condition . Objective Vital Signs / I&O: Vital Signs 04/26/18 08:00 04/26/18 08:19 04/26/18 11:46 Temperature 98.5 F Pulse Rate 67 82 70 Respiratory Rate 18 20 15 Blood Pressure 164/77 H Pulse Oximetry 67 L 97 04/26/18 12:00 04/26/18 14:00 04/26/18 16:00 Temperature 98.4 F 98.3 F Pulse Rate 84 87 85 Respiratory Rate 16 16 Blood Pressure 177/73 H 168/78 H Pulse Oximetry 97 94 L 04/26/18 16:07 04/26/18 18:00 04/26/18 19:29 Temperature Pulse Rate 83 83 102 H Respiratory Rate 19 20 Blood Pressure Pulse Oximetry 96 04/26/18 20:00 04/26/18 22:00 04/26/18 23:49 Temperature 99.2 F Pulse Rate 71 60 68 Respiratory Rate 21 18 Blood Pressure 171/72 H Pulse Oximetry 99 04/27/18 00:00 04/27/18 02:00 04/27/18 03:11 Temperature 99.1 F Pulse Rate 71 65 67 Respiratory Rate 13 20 Blood Pressure 147/67 H Pulse Oximetry 99 04/27/18 04:00 04/27/18 06:00 Temperature 98.9 F Pulse Rate 75 68 Respiratory Rate 20 Blood Pressure 162/68 H Pulse Oximetry 99 Intake & Output 04/26/18 04/27/18 04/27/18 18:59 06:59 18:59 Intake Total 2119 / 2119 2510 / 2510 Output Total 900 / 900 1900 / 1900 Balance 1219 / 1219 610 / 610 Weight 104.1 kg Intake: IV 1500 / 1500 1999 / 1999 Cardene Inj 50 MG In NS Inj 480 1500 / 1500 2000 / 2000 ML @ 5 MG/HR 50 mls/hr IV.CONT TITRATE PRN Rx#:[id number] Tube Feeding 519 / 519 390 / 390 Tube Irrigant 100 / 100 120 / 120 Output: Urine Amount (Catheter) 900 / 900 1900 / 1900 Condom 900 / 900 1900 / 1900 Other: Date of Last Bowel Movement 04/23/18 04/23/18 Result Diagrams: 04/25/18 03:54 04/27/18 04:01 Objective Remarks: GEN: Well-nourished well-developed male, currently on NC, lethargic HEENT: NCAT, pupils 2 mm and reactive bilaterally, right-sided facial droop persists. NG tube in place NECK: Trachea midline, no carotid bruits. Airway patent, no obstructive noises. CARDIO: S1-S2 normal no murmurs, no JVD. Poorly controlled hypertension on Cardene infusion PULM: Air entry diminished bilateral bases, no wheezes. ABD: Soft, protuberant, non-tender, no guarding, bowel sounds active. EXT: No significant peripheral edema, warm and well-perfused SKIN: No rashes or lesions NEURO: Eyes are spontaneously open. Right-sided facial droop. Following commands on the left side, still flaccid on the right side. Tracks with eyes. 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 Morton, discussed with her. Continue aspirin start IV heparin ischemic stroke protocol 04/27/2018 -Previous MRI brain revealed evolving left cerebellar peduncle CVA 8 mm, CT head 04/20 shows evolving left brainstem stroke -CT/ CTA head and neck reviewed, no flow-limiting lesions noted, right M2 50% stenosis. Repeat CT angiogram 04/18 unchanged -Patient presented with unclear time of onset so was not a candidate for tPA -Permissive hypertension now Goal 140 -160 -Holding home dose of diazepam 5 mg daily -PT/OT/speech -Still requiring Cardene 15 mg/h. Continue blood pressure goals. -Target sodium 150-155 due to mild mass-effect CARDIO: Hypertensive emergency History of essential hypertension -Continue to keep SBP <140-160 -ASA 81 daily. Start IV heparin ischemic protocol -At home on clonidine 0.3 mg twice daily and enalapril 20 mg daily. -Currently on Norvasc 10 mg daily, clonidine at 0.3 mg q8h, hydralazine 100 mg every 8 hours, hydrochlorothiazide 25 mg daily, Cardura 1 mg daily, metoprolol grams every 12, lisinopril 20 mg twice daily and also on Cardene infusion at 15 mg per -Per family request I will discontinue lisinopril, but will increase Cardura to 4 mg daily, and increase metoprolol to 50 mg every 8 hours -Use nicardipine infusion, IV enalaprilat, IV hydralazine and IV labetalol as needed -ECHO revealed EF 55-60%. No cardiogenic source of emboli identified -Cholesterol 140. LDL 83. Continue statin PULM: Hypoxemic respiratory failure-resolved Aspiration pneumonia right lower lobe Compromised airway protection due to stroke -With new basal ganglia stroke on the right side patient's level of consciousness has decreased and he is at risk of acute respiratory decompensation -Repeat chest x-ray today -Intubated 04/19/2018 for lack of airway protection and hypoxemic respiratory failure, extubated 04/23/18 -DuoNeb every 4 hours scheduled and as needed. Continue EzPAP -Broad-spectrum antibiotics with Zosyn-DC today GI: -NG and tube feeds with Glucerna, continue free water flushes -IV famotidine -Glycerin suppository daily for bowel regimen, having BM /RENAL: Acute kidney injury-stable Hyponatremia -IV Lasix 40 mg x1 given yesterday 04/26/2018 -Hydrochlorothiazide 25 mg daily for blood pressure control -Continue free water flushes target sodium 150-155 due to mild mass-effect -Monitor urine output, Accurate I's and O's -Electrolyte replacement per protocol -Elevated creatinine on arrival, improving, follow closely. ID: Aspiration pneumonia Sepsis-resolving Zosyn discontinued yesterday 04/26 Vanc and azithromycin discontinued 04/21/2018 Cultures negative to date HEME: Leukocytosis -Monitor CBC daily follow trends. ENDO: DMII Hemoglobin A1c 9.0. Hold metformin 1000 mg twice daily Continue sliding scale insulin Accu-Cheks with Novolin R every 6 hours Continue NovoLog NPH 70/30 18 units twice daily and sliding scale insulin Novolin R PROPH: -IV Heparin, SCDs -IV famotidine for stress ulcer prophylaxis PT/OT/Speech. CCT 42 MIN. updated at the bedside, son Karlos Loza updated over the phone Patient is currently more lethargic but appears to be protecting airway. CT shows new right basal ganglial infarct 2.4 cm with mild mass-effect. Patient is at very high risk of acute respiratory decompensation and may require endotracheal intubation. Watch closely in the ICU. Target sodium 150-155 due to mild mass-effect. Again discussed with Dr. Morton, continue aspirin start IV heparin Code Status: Full Discussed Condition With: Dr. Morton Progress Note: Quality - Stroke Contraindication Not Initiating IV-Tpa: Contraindicated Symptom Onset Unknown: Yes Rehab Services Assessed: Physical therapy assessment
--- NOTE | 2018-04-27 07:58 | XR ---
EXAM DATE: 04/27/2018 7:40 AM EDT AGE/SEX: 72 years / Male INDICATIONS: Respiratory distress. CLINICAL DATA: This is the patient's subsequent encounter. Patient reports that signs and symptoms h ave been present for 2 weeks and indicates a pain score of Nonresponsive. MEDICAL/SURGICAL HISTORY: . Hypertension. Diabetes. Bradycardia. None. COMPARISON: C, CHEST 1V SINGLE AP, 04/24/2018. . FINDINGS: The cardiac silhouette is enlarged in transverse diameter. A nasogastric tube is in place with its ti p in the stomach. There is prominence of the central pulmonary vasculature with indistinct vascular m argins compatible with vascular congestion but no evidence of overt failure. There is no evidence of pneumonia. CONCLUSION: Mild vascular congestion. The findings are improved when compared with the prior exam. Electronically signed by: Paddy Arnold MD 04/27/2018 7:56 AM EDT
[2018-04-27] MEDS ORDERED: Potassium Chloride 20 MEQ Pwd Pkt NG/OG ONE (09:27)
[2018-04-27] MEDS: hydroCHLOROthiazide 25 MG Tablet PO SCH (09:33)
[2018-04-27] MEDS: amLODIPine 10 MG Tablet PO SCH (09:33)
[2018-04-27] MEDS: Doxazosin 4 MG Tablet PO SCH ×3 (09:34→10:09)
[2018-04-27] MEDS: Metoprolol Tartrate 50 MG Tablet PO SCH ×2 (09:34→15:54)
[2018-04-27] MEDS: Hypromellose 0.3% Opth Gel 10 GM Bottle EACH EYE SCH ×2 (09:36→21:04)
[2018-04-27] MEDS: Famotidine PF Inj 20 MG/2 ML Vial IV.PUSH SCH ×2 (09:37→21:04)
[2018-04-27] MEDS: Glycerin Adult 2 GM Supp RECTAL SCH (09:37)
[2018-04-27] MEDS ORDERED: Potassium Chloride 25 MEQ Effervescent Tablet NG/OG ONE (09:45)
[2018-04-27] MEDS: Insulin Aspart Prot 70/30 1,000 UNITS/10 ML Vial SQ SCH ×2 (10:15→17:57)
[2018-04-27] MEDS: Insulin NovoLIN Regular Correctional Sugar Inj SQ SCH ×4 (10:16→21:04)
[2018-04-27 10:43] LABS: Hematocrit 35.6 % (39.0-51.0); Hemoglobin 11.1 gm/dL (13.0-17.0); Mean Corpuscular HGB Conc 31.1 % (32.0-36.0); Mean Corpuscular Hemoglobin 25.4 pg (27.0-34.0); Mean Corpuscular Volume 81.5 fL (80.0-100.0); Mean Platelet Volume 8.3 fL (7.0-11.0); Platelet Count 352 th/mm3 (150-450); Red Blood Count 4.37 mil/mm3 (4.50-5.90); Red Cell Distribution Width 13.6 % (11.6-17.2); White Blood Count 12.4 th/mm3 (4.0-11.0)
[2018-04-27] MEDS: Heparin Drip 25,000 UNIT/250 ML BAG IV.CONT PRN (10:43)
[2018-04-27 10:52] LABS: Activated Partial Thrombo Time 23.6 sec (24.3-30.1)
--- NOTE | 2018-04-27 14:00 | P.DIET ---
Nutritional Evaluation Type of nutrition evaluation: follow-up Nutrition consult regarding: Tube Feeding [place] [facility] [place] - Diagnosis CVA, Hypertensive Emergency - Objective Body Mass Index: 34.4 Cope body weight: 65 kg % IBW: 147 Body Weight Used for Calculations: IBW Energy Needs - Lower Range (kCal/kg): 24 Energy Needs - Upper Range (kCal/kg): 28 Lower Limit kCal/kg (kCals): 1,560 Upper Limit kCal/kg (kCals): 1,820 Lower Limit Protein Factor (Grams per Kg): 1.5 Upper Limit Protein Factor (Grams per Kg): 2 Lower Protein Needs (Protein): 98 Upper Protein Needs (Protein): 130 Dietitian Reviewed in Medical Record: Current diet, Curent medications, Intake & Output, Labs, Medical history, Tube feeding Diet Order: TF only Speech Therapy Recommendations: Yes (recommend npo (04/27)) Objective Comments: PMH: Anxiety, HTN, DM, sinus bradycardia Assessment Assessment: Pt remains at nutritional risk r/t current clinical status. currently tolertaing Glucerna 1.5 @ 40 mls/hr. Recommend goal rate of 50ml/hr to meet pt' s nutritional needs providing 1800kcals, 99gms protein and 911mls free water. Labs, wts and clinical course reviewed: CBW = 104.2 kg. LBM (04/23). Recommendations: Increase Glucerna 1.5 to goal rate of 50ml/hr Dietitian to Monitor: Lab values, Intake & Output, Tube feeding tolerance, Weight change, Swallow recommendations, Medical course
--- NOTE | 2018-04-27 15:32 | P.PN ---
Subjective Interval history: new stroke right BG worsened yesterday evening so stat ct brain completed confirms hypodensity in right BG. still residual of left brain stem infarct. Physical Exam Vital signs: Vital Signs 04/26/18 16:00 04/26/18 16:07 04/26/18 18:00 Temperature 98.3 F Pulse Rate 85 83 83 Respiratory Rate 16 19 Blood Pressure 168/78 H Pulse Oximetry 94 L 04/26/18 19:29 04/26/18 20:00 04/26/18 22:00 Temperature 99.2 F Pulse Rate 102 H 71 60 Respiratory Rate 20 21 Blood Pressure 171/72 H Pulse Oximetry 96 99 04/26/18 23:49 04/27/18 00:00 04/27/18 02:00 Temperature 99.1 F Pulse Rate 68 71 65 Respiratory Rate 18 13 Blood Pressure 147/67 H Pulse Oximetry 99 04/27/18 03:11 04/27/18 04:00 04/27/18 06:00 Temperature 98.9 F Pulse Rate 67 75 68 Respiratory Rate 20 20 Blood Pressure 162/68 H Pulse Oximetry 99 04/27/18 08:00 04/27/18 08:19 04/27/18 10:00 Temperature 98.7 F Pulse Rate 73 75 74 Respiratory Rate 17 16 Blood Pressure 177/78 H Pulse Oximetry 100 100 04/27/18 11:28 04/27/18 12:00 04/27/18 14:00 Temperature 98.5 F Pulse Rate 63 60 62 Respiratory Rate 14 16 Blood Pressure 134/62 Pulse Oximetry 98 Intake & Output 04/26/18 04/27/18 04/27/18 18:59 06:59 18:59 Intake Total 2119 / 2119 2510 / 2510 1000 / 1000 Output Total 900 / 900 1900 / 1900 Balance 1219 / 1219 610 / 610 1000 / 1000 Weight 104.1 kg Intake: IV 1500 / 1500 1999 / 1999 1000 / 1000 Cardene Inj 50 MG In NS Inj 480 1500 / 1500 1999 / 1999 1000 / 1000 ML @ 5 MG/HR 50 mls/hr IV.CONT TITRATE PRN Rx#:[id number] Tube Feeding 519 / 519 390 / 390 Tube Irrigant 100 / 100 120 / 120 Output: Urine Amount (Catheter) 900 / 900 1900 / 1900 Condom 900 / 900 1900 / 1900 Other: Date of Last Bowel Movement 04/23/18 04/23/18 04/23/18 Narrative: sleepy arouses with sternal rub opens eyes facial droop pupils pp no gaze deviation. right hemiplegia follows commands left side nods yes and no to questions w/d left foot,minimal in right. - Constitutional no acute distress - Urinary Catheter Management Condom Cath placed during this visit: no Results - Labs CBC & Chem 7: 04/27/18 10:27 04/27/18 04:01 Laboratory Results - last 24 hr 04/26/18 04/26/18 04/26/18 17:38 19:34 19:44 WBC RBC Hgb Hct MCV MCH MCHC RDW Plt Count MPV PT INR APTT Puncture Site Right radial Patient Temperature 98.6 O2 Saturation 96 ABG pH 7.46 H ABG pCO2 41 ABG pO2 93 ABG HCO3 29 H ABG O2 Content 14.9 ABG Base Excess 5.1 H ABG Methemoglobin 1.1 Tu Test Present Hemoglobin 11.0 L Carboxyhemoglobin 1.1 O2 Delivery Device Nasal cannula Liter Flow 3.00 Critical Value No Sodium Potassium Chloride Carbon Dioxide Anion Gap BUN Creatinine Estimated GFR POC Glucose 194 H 241 H Random Glucose Calcium 04/27/18 04/27/18 04/27/18 04:01 10:06 10:27 WBC 12.4 H RBC 4.37 L Hgb 11.1 L Hct 35.6 L MCV 81.5 MCH 25.4 L MCHC 31.1 L RDW 13.6 Plt Count 352 D MPV 8.3 PT INR APTT Puncture Site Patient Temperature O2 Saturation ABG pH ABG pCO2 ABG pO2 ABG HCO3 ABG O2 Content ABG Base Excess ABG Methemoglobin Tu Test Hemoglobin Carboxyhemoglobin O2 Delivery Device Liter Flow Critical Value Sodium 156 H* Potassium 3.5 Chloride 119 H Carbon Dioxide 30.6 Anion Gap 6 BUN 32 H Creatinine 1.26 Estimated GFR 56 L POC Glucose 191 H Random Glucose 130 H Calcium 8.6 04/27/18 04/27/18 10:27 12:08 WBC RBC Hgb Hct MCV MCH MCHC RDW Plt Count MPV PT 10.0 INR 1.0 APTT 23.6 L Puncture Site Patient Temperature O2 Saturation ABG pH ABG pCO2 ABG pO2 ABG HCO3 ABG O2 Content ABG Base Excess ABG Methemoglobin Tu Test Hemoglobin Carboxyhemoglobin O2 Delivery Device Liter Flow Critical Value Sodium Potassium Chloride Carbon Dioxide Anion Gap BUN Creatinine Estimated GFR POC Glucose 191 H Random Glucose Calcium - Imaging Impressions Head CT 04/26/18 19:34 CONCLUSION: 1. Evolving 2 cm right basal ganglia infarct, subacute. Mild mass effect but no midline shift. 2. Previously noted left-sided midbrain infarct again seen. . Chest X-Ray 04/27/18 07:08 CONCLUSION: Mild vascular congestion. The findings are improved when compared with the prior exam. Assessment and Plan - Plan baby asa started on heparin ischemic stroke protocol-will need to be converted in next day or two if stable to Eliquis 5mg bid. correct lytes watch breathing if worse will require reintubation ng feeds will likely need a peg bp control without hypotension-was on cardene. scds pt-ot-st rehab when stable. Progress Note: Quality - Stroke Contraindication Not Initiating IV-Tpa: Contraindicated Symptom Onset Unknown: Yes Rehab Services Assessed: Physical therapy assessment
[2018-04-28] MEDS: Labetalol HCl Inj 100 MG/20 ML Vial IV.PUSH PRN ×5 (00:02→06:35)
[2018-04-28] MEDS: Metoprolol Tartrate 50 MG Tablet PO SCH ×2 (01:09→09:26)
[2018-04-28] MEDS: hydrALAZINE 50 MG Tablet PO SCH ×3 (05:06→21:03)
--- NOTE | 2018-04-28 05:48 | XR ---
EXAM DATE: 04/28/2018 3:40 AM EDT AGE/SEX: 72 years / Male INDICATIONS: Respiratory disease. CLINICAL DATA: This is the patient's subsequent encounter. Patient reports that signs and symptoms h ave been present for 3 weeks and indicates a pain score of Nonresponsive. MEDICAL/SURGICAL HISTORY: Hypertension. Diabetes mellitus type II. None. COMPARISON: C, CHEST 1V SINGLE AP, 04/27/2018. . FINDINGS: Nasogastric tube descends into the stomach. Mild bilateral perihilar interstitial parenchymal opacity is present. Hazy basilar opacity is slightly improved. Cardiac contours are unchanged. CONCLUSION: Improving aeration. Electronically signed by: Qamar Batista MD 04/28/2018 5:46 AM EDT
[2018-04-28 06:50] LABS: Hematocrit 34.7 % (39.0-51.0); Hemoglobin 10.7 gm/dL (13.0-17.0); Mean Corpuscular Hemoglobin 25.2 pg (27.0-34.0); Mean Corpuscular Volume 81.6 fL (80.0-100.0); Mean Platelet Volume 8.3 fL (7.0-11.0); Platelet Count 368 th/mm3 (150-450); Red Blood Count 4.25 mil/mm3 (4.50-5.90); Red Cell Distribution Width 13.8 % (11.6-17.2); White Blood Count 13.3 th/mm3 (4.0-11.0)
--- NOTE | 2018-04-28 07:07 | P.PNCC ---
Subjective Subjective Remarks/Hospital Course: 72yM presenting to the ED overnight on 04/16/18 with right leg weakness/ numbness and unsteady gait. The patient states that he woke up yesterday morning with difficulty moving his right leg and feeling "off balance". He reports that the symptoms did not improve over the course of the day, so he went to the emergency department, where he was found to have profound hypertension. The patient says that he has a history of hypertension and "white coat syndrome" but has never had a hypertensive emergency in the past. He denies facial droop, slurred speech, aphasia, difficulty swallowing, arm weakness/ numbness, or confusion. He has no history of CVA/ TIA in the past. H/O HTN, diabetes, anxiety SUBJ 04/18/18: Patient was transferred to [facility] today for deteriorating clinical condition. I evaluated patient in the ICU. Currently has significant right facial droop worsening hemiplegia unable to move right side even though sensation appears to be preserved. 0 out of 5 power on the right upper and lower extremity. Patient also has difficulty clearing secretions and has bilateral wheezing. CT did not show any significant change an MRI is pending at this time. I explained to the family including about acute risk of deterioration and need for airway protection. They expressed good understanding SUBJECTIVE: 04/19: T-max 102. Tachycardic. Minimal to no movement to right upper lower extremity. Likely aspirating. Discussed with in detail 30 minutes benefits and risks of intubation. She will bring antibiotic eyedrops for left eye today. Patient currently in 100 percent nonrebreather. She wishes to initiate antibiotic therapy first but aware that high risk of intubation. 04/20 patient now intubated sedated. Clearly aspirated yesterday and now with significant right lower lobe consolidation. Sputum culture is pending. CT head today shows evolving left upper brainstem infarct. 04/21: Patient remains intubated, on sedation lightening patient does follow commands with the left side, his remains closed. WBC count slowly improving. Blood pressure control is within target but on the higher end of the limit. Will resume his home medication of clonidine 0.3 mg q8h 04/22: Patient remains intubated slightly sedated with propofol 10 mcg/kg/min. Blood pressure on the higher side. Restart hydralazine 100 mg p.o. every 8 hours. Attempt CPAP trials check chest x-ray. 04/23: Remains off all sedation more than 18 hours now. Opens eyes to command follows commands on the left upper and lower extremity. Tolerating CPAP mild cuff leak. Chest x-ray remains unchanged but oxygenation is good. Will give Lasix 60 mg IV 1 attempt extubation 04/24: Patient was extubated yesterday tolerating well chest x-ray improving. Using Levsin as needed for increased secretions. Patient is more awake following commands on the left side. Son at the bedside updated. Speech for swallow eval if failed NG tube and start tube feeding along with p.o. meds and free water. 04/25: NG tube in place, tube feeding and meds easily delivered. Extubated 24 hours ago and breathing comfortably, protects airway well. Remains on Cardene 20 mg/h, will start an beata inhibitor and twice daily beta-tresa. 04/26: Remains on Cardene 15 mg/h. Will add Cardura to regimen. Glucose intolerance continues, will increase long-acting insulin dose. Tube feeds are Glucerna 0.5. Right side remains paretic. 04/27: Patient became more lethargic yesterday evening, a stat repeat CT showed evolving 2 cm right basal ganglia infarct, subacute. Mild mass effect but no midline shift. Previously noted left-sided midbrain infarct again seen. Sodium is 156- will maintain high sodium. Remains on Cardene infusion. concerned about lisinopril causing some tongue swelling. I will discontinue lisinopril, increase Cardura to 4 mg daily, increase metoprolol to 50 mg every 8 hours. Patient remains lethargic but appears to be protecting airway. Discussed with Dr. Morton will start IV heparin ischemic stroke protocol. Patient is at high risk for decompensation and requiring endotracheal intubation family made aware of change in condition 04/28: Remains lethargic somnolent but arousable wakes up follows commands on the left side. Remains on Cardene currently at 7 mg/h, I will double clonidine patch to 0.6 mg/h. IV heparin started yesterday for recurrent stroke. Will do a follow-up CT of the head today. Protecting airway and there is no evidence of aspiration at this time Objective Vital Signs / I&O: Vital Signs 04/27/18 08:00 04/27/18 08:19 04/27/18 10:00 Temperature 98.7 F Pulse Rate 73 75 74 Respiratory Rate 17 16 Blood Pressure 177/78 H Pulse Oximetry 100 100 04/27/18 11:28 04/27/18 12:00 04/27/18 14:00 Temperature 98.5 F Pulse Rate 63 60 62 Respiratory Rate 14 16 Blood Pressure 134/62 Pulse Oximetry 98 04/27/18 16:00 04/27/18 16:38 04/27/18 18:00 Temperature 98.8 F Pulse Rate 66 60 62 Respiratory Rate 17 17 Blood Pressure 142/63 H Pulse Oximetry 99 04/27/18 20:00 04/27/18 21:00 04/27/18 22:00 Temperature 99.8 F H Pulse Rate 66 68 72 Respiratory Rate 17 18 Blood Pressure 146/65 H Pulse Oximetry 98 99 04/28/18 00:00 04/28/18 02:00 04/28/18 03:00 Temperature 99.2 F Pulse Rate 60 65 66 Respiratory Rate 15 20 Blood Pressure 167/72 H Pulse Oximetry 98 04/28/18 04:00 04/28/18 06:00 Temperature 98.8 F Pulse Rate 62 68 Respiratory Rate 14 Blood Pressure 171/74 H Pulse Oximetry 98 Intake & Output 04/27/18 04/27/18 04/28/18 06:59 18:59 06:59 Intake Total 2510 / 2510 2013 873 / 873 Output Total 1900 / 1900 1200 / 1200 875 / 875 Balance 610 / 610 814 / 814 -2 / -2 Weight 104.1 kg 104.6 kg Intake: IV 1999 1000 / 1000 Cardene Inj 50 MG In NS Inj 480 1999 1000 / 1000 ML @ 5 MG/HR 50 mls/hr IV.CONT TITRATE PRN Rx#:[id number] Tube Feeding 390 / 390 514 / 514 373 / 373 Tube Irrigant 120 / 120 Water Bolus Amount 500 / 500 500 / 500 Output: Urine Amount (Catheter) 1900 / 1900 1200 / 1200 875 / 875 Condom 1900 / 1900 1200 / 1200 875 / 875 Other: Date of Last Bowel Movement 04/23/18 04/23/18 04/23/18 # Bowel Movements 0 Result Diagrams: 04/27/18 10:27 04/27/18 18:00 Objective Remarks: GEN: Well-nourished well-developed male, currently on NC, lethargic HEENT: NCAT, pupils 3 mm and reactive bilaterally, right-sided facial droop persists. NG tube in place NECK: Trachea midline, no carotid bruits. Airway patent, no obstructive noises. CARDIO: S1-S2 normal no murmurs, no JVD. Poorly controlled hypertension on Cardene infusion PULM: Air entry diminished bilateral bases, no wheezes. Protecting airway ABD: Soft, protuberant, non-tender, no guarding, bowel sounds active. EXT: No significant peripheral edema, warm and well-perfused SKIN: No rashes or lesions NEURO: Lethargic somnolent but opens eyes to verbal command.. Right-sided facial droop. Following commands on the left side, still flaccid on the right side. Tracks with eyes. 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 Morton, discussed with her. Continue aspirin started IV heparin ischemic stroke protocol 04/27/2018 -F/u CT head today 04/28 -Previous MRI brain revealed evolving left cerebellar peduncle CVA 8 mm, CT head 04/20 shows evolving left brainstem stroke -CT/ CTA head and neck reviewed, no flow-limiting lesions noted, right M2 50% stenosis. Repeat CT angiogram 04/18 unchanged -Permissive hypertension now Goal 140 -160 -Holding home dose of diazepam 5 mg daily -PT/OT/speech -Still requiring Cardene 7 mg/h. Continue blood pressure goals. -Target sodium 150-155 due to mild mass-effect CARDIO: Hypertensive emergency History of essential hypertension -Continue to keep SBP <140-160 -ASA 81 daily. Started IV heparin ischemic protocol 04/27/18 -Currently on Norvasc 10 mg daily, clonidine at 0.3 mg patch, hydralazine 100 mg every 8 hours, hydrochlorothiazide 25 mg daily, Cardura 4 mg daily, metoprolol 50 mg every 8, and also on Cardene infusion at 7 mg per hour -Per family request I will discontinued lisinopril -At home on clonidine 0.3 mg twice daily and enalapril 20 mg daily. -Use nicardipine infusion, IV enalaprilat, IV hydralazine and IV labetalol as needed -ECHO revealed EF 55-60%. No cardiogenic source of emboli identified -Cholesterol 140. LDL 83. Continue statin PULM: Hypoxemic respiratory failure-resolved Aspiration pneumonia right lower lobe Compromised airway protection due to stroke -With new basal ganglia stroke on the right side patient's level of consciousness has decreased and he is at risk of acute respiratory decompensation -Repeat chest x-ray today does not show any evidence of aspiration, monitor closely -Intubated 04/19/2018 for lack of airway protection and hypoxemic respiratory failure, extubated 04/23/18 -DuoNeb every 4 hours scheduled and as needed. Continue EzPAP -Broad-spectrum antibiotics with Zosyn course completed GI: -NG and tube feeds with Glucerna, continue free water flushes -Strictly n.p.o. except tube feeds due to lethargy and compromised airway protection -IV famotidine -Glycerin suppository daily for bowel regimen, having BM /RENAL: Acute kidney injury-stable Hypernatremia -IV Lasix as needed. Free water replacement with flushes -Hydrochlorothiazide 25 mg daily for blood pressure control -Target sodium 150-155 due to mild mass-effect -Monitor urine output, Accurate I's and O's -Electrolyte replacement per protocol -Elevated creatinine on arrival, improving, follow closely. ID: Aspiration pneumonia Sepsis-resolving Zosyn discontinued yesterday 04/26 and azithromycin discontinued 04/21/2018 Cultures negative to date HEME: Leukocytosis -Monitor CBC daily follow trends. ENDO: DMII Hemoglobin A1c 9.0. Hold metformin 1000 mg twice daily Continue sliding scale insulin Accu-Cheks with Novolin R every 6 hours Continue NovoLog NPH 70/30 18 units twice daily and sliding scale insulin Novolin R PROPH: -IV Heparin, SCDs -IV famotidine for stress ulcer prophylaxis PT/OT/Speech. CCT 35 MIN. updated at the bedside, son Karlos Loza updated over the phone 04/27/18. Will update both later today Remains lethargic but appears to be protecting airway. CT 04/26/2018 shows new right basal ganglial infarct 2.4 cm with mild mass-effect. Patient is at very high risk of acute respiratory decompensation and may require endotracheal intubation. Watch closely in the ICU. Target sodium 150-155 due to mild mass- effect. Follow-up CT of the head today Code Status: Full Progress Note: Quality - Stroke Contraindication Not Initiating IV-Tpa: Contraindicated Symptom Onset Unknown: Yes Rehab Services Assessed: Physical therapy assessment
[2018-04-28 07:11] LABS: Mean Corpuscular HGB Conc 30.9 % (32.0-36.0)
[2018-04-28] MEDS: niCARdipine Inj 50 MG in Sodium Chlor 0.9% Inj 480 ML IV.CONT PRN ×4 (07:37→23:53)
[2018-04-28] MEDS: Heparin Drip 25,000 UNIT/250 ML BAG IV.CONT PRN (07:38)
[2018-04-28 07:48] LABS: Albumin 1.9 g/dL (3.4-5.0); Anion Gap 8 meq/L (5-15); Aspartate Aminotransferase 42 U/L (15-37); Blood Urea Nitrogen 29 mg/dL (7-18); Calcium 8.8 mg/dL (8.5-10.1); Carbon Dioxide 29.5 meq/L (21.0-32.0); Chloride 117 meq/L (98-107); Glomerular Filtration Rate 66 mL/min (>89); Glucose,Random 168 mg/dL (74-106); Magnesium 2.3 mg/dL (1.5-2.5); Potassium 3.7 meq/L (3.5-5.1); Sodium 154 meq/L (136-145)
[2018-04-28 07:50] LABS: Alanine Aminotransferase 56 U/L (12-78)
[2018-04-28 07:55] LABS: Alkaline Phosphatase 95 U/L (45-117); Total Protein 6.4 g/dL (6.4-8.2)
[2018-04-28] MEDS: Famotidine PF Inj 20 MG/2 ML Vial IV.PUSH SCH ×2 (09:26→20:51)
[2018-04-28] MEDS: Glycerin Adult 2 GM Supp RECTAL SCH (09:26)
[2018-04-28] MEDS: Doxazosin 4 MG Tablet PO SCH (09:26)
[2018-04-28] MEDS: amLODIPine 10 MG Tablet PO SCH (09:26)
[2018-04-28] MEDS: hydroCHLOROthiazide 25 MG Tablet PO SCH (09:27)
[2018-04-28] MEDS: Insulin Aspart Prot 70/30 1,000 UNITS/10 ML Vial SQ SCH ×2 (09:27→16:33)
[2018-04-28] MEDS: Hypromellose 0.3% Opth Gel 10 GM Bottle EACH EYE SCH ×2 (09:27→20:52)
[2018-04-28] MEDS: Insulin NovoLIN Regular Correctional Sugar Inj SQ SCH ×4 (09:28→20:52)
--- NOTE | 2018-04-28 11:40 | US ---
EXAM DATE: 04/28/2018 10:38 AM EDT AGE/SEX: 72 years / Male INDICATIONS: Deep vein thrombosis. CLINICAL DATA: This is the patient's initial encounter. Patient reports that signs and symptoms have been present for 1 day and indicates a pain score of Nonresponsive. MEDICAL/SURGICAL HISTORY: . Anxiety. HTN. Diabetic. Sinus bradycardia. Stroke. . COMPARISON: No prior exams available for comparison. FINDINGS: Right Upper Extremity: There is thrombus and noncompressible veins from the cephalic vein in the dis diana upper arm to the proximal lower arm. Left Upper Extremity: The vessels are compressible and augmentation response is documented. No filli ng defects are seen. The flow is phasic with respiration. Other: None. CONCLUSION: 1. Short segment DVT in the right arm in the lower upper arm to the upper aspect of the forearm with in the cephalic vein in addition to a smaller branch. 2. Left arm is unremarkable Electronically signed by: Andrea Badillo MD 04/28/2018 10:44 AM EDT
--- NOTE | 2018-04-28 16:50 | ECHRPT ---
Indication: CVA / TIA CONCLUSIONS Normal left ventricular size. Wall thickness is normal. The left ventricular systolic function is normal with an estimated ejection fraction in the range of 55-60%. Bubble study with no evidence of PFO. BP: / HR: Rhythm: MEASUREMENTS (Male / Female) Normal Values Technical Quality:Good 2D ECHO LV Diastolic Diameter PLAX 4.9 cm 4.2 - 5.9 / 3.9 - 5.3 cm LV Systolic Diameter PLAX 3.3 cm IVS Diastolic Thickness 1.1 cm 0.6 - 1.0 / 0.6 - 0.9 cm LVPW Diastolic Thickness 1.1 cm 0.6 - 1.0 / 0.6 - 0.9 cm LV Relative Wall Thickness 0.4 Aortic Root Diameter 3.3 cm LA Systolic Diameter LX 3.6 cm 3.0 - 4.0 / 2.7 - 3.8 cm FINDINGS LEFT VENTRICLE Normal left ventricular size. Wall thickness is normal. The left ventricular systolic function is normal with an estimated ejection fraction in the range of 55-60%. OTHER FINDINGS Bubble study showed no evidence of right to left shunt. Gurmeet Gaona MD, FACC (Electronically Signed) Final Date:28 April 2018 16:49
--- NOTE | 2018-04-28 17:12 | CT ---
EXAM DATE: 04/28/2018 5:05 PM EDT AGE/SEX: 72 years / Male INDICATIONS: Stroke follow up. CLINICAL DATA: This is the patient's initial encounter. Patient reports that signs and symptoms have been present for 3 days and indicates a pain score of 0/10. MEDICAL/SURGICAL HISTORY: Cardiovascular disease. Diabetes. None. RADIATION DOSE: 56.35 CTDI (mGy) COMPARISON: CT head 04/26/2018 . TECHNIQUE: CT of the head without contrast. Using automated exposure control and adjustment of the mA and/or kV according to patient size, radiation dose was kept as low as reasonably achievable to ob tain optimal diagnostic quality images. DICOM format image data is available electronically for revi ew and comparison. FINDINGS: Cerebrum: There is a 2 cm stroke in the right basal ganglia extending into the centrum semiovale reg ion. It's stable from the previous study. I don't see any acute hemorrhage or edema. There has been n o interval change since the . Posterior Fossa: The cerebellum and brainstem are intact. The 4th ventricle is midline. The cerebe llopontine angle is unremarkable. Extracranial: The visualized portion of the orbits is intact. Skull: The calvaria is intact. No evidence of skull fracture. CONCLUSION: 1. Stable right-sided lacunar stroke. No evidence of any acute insult or hemorrhage. . Electronically signed by: Andrea Badillo MD 04/28/2018 5:11 PM EDT
[2018-04-28] MEDS ORDERED: Metoprolol Tartrate 25 MG Tablet PO SCH (21:00)
[2018-04-29] MEDS: niCARdipine Inj 50 MG in Sodium Chlor 0.9% Inj 480 ML IV.CONT PRN ×4 (02:42→14:17)
[2018-04-29] MEDS: Heparin Drip 25,000 UNIT/250 ML BAG IV.CONT PRN (02:46)
[2018-04-29 05:12] LABS: Hematocrit 33.2 % (39.0-51.0); Hemoglobin 10.6 gm/dL (13.0-17.0); Mean Corpuscular HGB Conc 31.8 % (32.0-36.0); Mean Corpuscular Hemoglobin 25.4 pg (27.0-34.0); Mean Corpuscular Volume 79.9 fL (80.0-100.0); Mean Platelet Volume 8.3 fL (7.0-11.0); Platelet Count 390 th/mm3 (150-450); Red Blood Count 4.16 mil/mm3 (4.50-5.90); Red Cell Distribution Width 13.7 % (11.6-17.2); White Blood Count 16.3 th/mm3 (4.0-11.0)
[2018-04-29] MEDS: hydrALAZINE 50 MG Tablet PO SCH ×3 (05:42→21:24)
[2018-04-29 05:43] LABS: Albumin 1.9 g/dL (3.4-5.0); Anion Gap 8 meq/L (5-15); Aspartate Aminotransferase 32 U/L (15-37); Blood Urea Nitrogen 29 mg/dL (7-18); Calcium 8.7 mg/dL (8.5-10.1); Carbon Dioxide 28.3 meq/L (21.0-32.0); Chloride 117 meq/L (98-107); Glomerular Filtration Rate 67 mL/min (>89); Glucose,Random 142 mg/dL (74-106); Potassium 3.6 meq/L (3.5-5.1); Sodium 153 meq/L (136-145)
[2018-04-29 05:44] LABS: Alanine Aminotransferase 48 U/L (12-78)
[2018-04-29 05:46] LABS: Alkaline Phosphatase 87 U/L (45-117); Total Protein 6.3 g/dL (6.4-8.2)
[2018-04-29] MEDS ORDERED: Sod Phosphate/Sod Biphosphate (Adult) Enema 133 ML Bottle RECTAL ONE (06:50)
[2018-04-29] MEDS ORDERED: hydrALAZINE HCl Inj 20 MG/ML Vial IV.PUSH PRN (06:57)
[2018-04-29] MEDS ORDERED: Labetalol HCl Inj 100 MG/20 ML Vial IV.PUSH PRN (06:57)
--- NOTE | 2018-04-29 07:10 | P.PNCC ---
Subjective Subjective Remarks/Hospital Course: 72yM presenting to the ED overnight on 04/16/18 with right leg weakness/ numbness and unsteady gait. The patient states that he woke up yesterday morning with difficulty moving his right leg and feeling "off balance". He reports that the symptoms did not improve over the course of the day, so he went to the emergency department, where he was found to have profound hypertension. The patient says that he has a history of hypertension and "white coat syndrome" but has never had a hypertensive emergency in the past. He denies facial droop, slurred speech, aphasia, difficulty swallowing, arm weakness/ numbness, or confusion. He has no history of CVA/ TIA in the past. H/O HTN, diabetes, anxiety SUBJ 04/18/18: Patient was transferred to [facility] today for deteriorating clinical condition. I evaluated patient in the ICU. Currently has significant right facial droop worsening hemiplegia unable to move right side even though sensation appears to be preserved. 0 out of 5 power on the right upper and lower extremity. Patient also has difficulty clearing secretions and has bilateral wheezing. CT did not show any significant change an MRI is pending at this time. I explained to the family including about acute risk of deterioration and need for airway protection. They expressed good understanding SUBJECTIVE: 04/19: T-max 102. Tachycardic. Minimal to no movement to right upper lower extremity. Likely aspirating. Discussed with in detail 30 minutes benefits and risks of intubation. She will bring antibiotic eyedrops for left eye today. Patient currently in 100 percent nonrebreather. She wishes to initiate antibiotic therapy first but aware that high risk of intubation. 04/20 patient now intubated sedated. Clearly aspirated yesterday and now with significant right lower lobe consolidation. Sputum culture is pending. CT head today shows evolving left upper brainstem infarct. 04/21: Patient remains intubated, on sedation lightening patient does follow commands with the left side, his remains closed. WBC count slowly improving. Blood pressure control is within target but on the higher end of the limit. Will resume his home medication of clonidine 0.3 mg q8h 04/22: Patient remains intubated slightly sedated with propofol 10 mcg/kg/min. Blood pressure on the higher side. Restart hydralazine 100 mg p.o. every 8 hours. Attempt CPAP trials check chest x-ray. 04/23: Remains off all sedation more than 18 hours now. Opens eyes to command follows commands on the left upper and lower extremity. Tolerating CPAP mild cuff leak. Chest x-ray remains unchanged but oxygenation is good. Will give Lasix 60 mg IV 1 attempt extubation 04/24: Patient was extubated yesterday tolerating well chest x-ray improving. Using Levsin as needed for increased secretions. Patient is more awake following commands on the left side. Son at the bedside updated. Speech for swallow eval if failed NG tube and start tube feeding along with p.o. meds and free water. 04/25: NG tube in place, tube feeding and meds easily delivered. Extubated 24 hours ago and breathing comfortably, protects airway well. Remains on Cardene 20 mg/h, will start an beata inhibitor and twice daily beta-tresa. 04/26: Remains on Cardene 15 mg/h. Will add Cardura to regimen. Glucose intolerance continues, will increase long-acting insulin dose. Tube feeds are Glucerna 0.5. Right side remains paretic. 04/27: Patient became more lethargic yesterday evening, a stat repeat CT showed evolving 2 cm right basal ganglia infarct, subacute. Mild mass effect but no midline shift. Previously noted left-sided midbrain infarct again seen. Sodium is 156- will maintain high sodium. Remains on Cardene infusion. concerned about lisinopril causing some tongue swelling. I will discontinue lisinopril, increase Cardura to 4 mg daily, increase metoprolol to 50 mg every 8 hours. Patient remains lethargic but appears to be protecting airway. Discussed with Dr. Morton will start IV heparin ischemic stroke protocol. Patient is at high risk for decompensation and requiring endotracheal intubation family made aware of change in condition 04/28: Remains lethargic somnolent but arousable wakes up follows commands on the left side. Remains on Cardene currently at 7 mg/h, I will double clonidine patch to 0.6 mg/h. IV heparin started yesterday for recurrent stroke. Will do a follow-up CT of the head today. Protecting airway and there is no evidence of aspiration at this time 04/29: Remains lethargic but wakes up easily and follows commands on the left side. Currently requiring high-dose Cardene to control blood pressure despite multiple oral and transdermal medications. Remains on Cardene at 17 mg/h. I will increase Cardura to 8 mg daily, increase metoprolol to 25 every 8 hours ( dose was reduced yesterday due to bradycardia). CT of the head was unchanged and stable yesterday. Noted to have increasing white count 16 K. UA requested , patient had urinary retention and required Bauer placed back yesterday night. Constipation medications added Objective Vital Signs / I&O: Vital Signs 04/28/18 07:36 04/28/18 08:00 04/28/18 09:14 Temperature 98.1 F Pulse Rate 62 72 Respiratory Rate 14 17 Blood Pressure 166/72 H Pulse Oximetry 98 98 04/28/18 10:00 04/28/18 12:00 04/28/18 14:00 Temperature 98.4 F Pulse Rate 68 52 L 68 Respiratory Rate 14 Blood Pressure 144/66 H Pulse Oximetry 98 04/28/18 14:34 04/28/18 16:00 04/28/18 18:00 Temperature 98.4 F Pulse Rate 61 69 67 Respiratory Rate 17 20 Blood Pressure 168/72 H Pulse Oximetry 97 04/28/18 20:00 04/28/18 21:10 04/28/18 21:13 Temperature 98.5 F Pulse Rate 62 69 Respiratory Rate 14 22 Blood Pressure 179/76 H Pulse Oximetry 98 100 04/28/18 22:00 04/29/18 00:00 04/29/18 02:00 Temperature 98.9 F Pulse Rate 58 L 62 64 Respiratory Rate 15 Blood Pressure 158/68 H Pulse Oximetry 99 04/29/18 04:00 04/29/18 04:30 04/29/18 06:00 Temperature 98.1 F Pulse Rate 69 71 80 Respiratory Rate 24 22 Blood Pressure 162/77 H Pulse Oximetry 98 Intake & Output 04/28/18 04/28/18 04/29/18 06:59 18:59 06:59 Intake Total 1123 / 1123 1386 / 1386 3165 / 3165 Output Total 875 / 875 1050 / 1050 1450 / 1450 Balance 248 / 248 336 / 336 1715 / 1715 Weight 104.6 kg 106.5 kg Intake: IV 250 / 250 1000 / 1000 2250 / 2250 Heparin/D5W 25,000 U/250 mL 25, 250 / 250 250 / 250 000 unit In 250 ml @ 1,200 UNIT /HR 12 mls/hr IV.CONT TITRATE PRN Rx#:[id number] Cardene Inj 50 MG In NS Inj 480 1000 / 1000 2000 / 2000 ML @ 5 MG/HR 50 mls/hr IV.CONT TITRATE PRN Rx#:[id number] Tube Feeding 373 / 373 386 / 386 415 / 415 Water Bolus Amount 500 / 500 500 / 500 Output: Urine 1050 / 1050 Urine Amount (Catheter) 875 / 875 1450 / 1450 Condom 875 / 875 Indwelling Urethral Catheter 1450 / 1450 Other: Date of Last Bowel Movement 04/23/18 04/23/18 04/23/18 Result Diagrams: 04/29/18 04:29 04/29/18 04:29 Objective Remarks: GEN: Well-nourished well-developed male, currently on NC, lethargic eyes are spontaneously open HEENT: NCAT, pupils 3 mm and reactive bilaterally, right-sided facial droop persists. NG tube in place NECK: Trachea midline, no carotid bruits. Airway patent, intermittent snoring CARDIO: S1-S2 normal no murmurs, no JVD. Poorly controlled hypertension on Cardene infusion 17 mg per hour PULM: Air entry diminished bilateral bases, no wheezes. Protecting airway ABD: Soft, protuberant, non-tender, no guarding, bowel sounds active. EXT: No significant peripheral edema, warm and well-perfused SKIN: No rashes or lesions NEURO: Lethargic somnolent but opens eyes to verbal command. Right-sided facial droop. Following commands on the left side upper and lower extremity, flaccid on the right side. Tracks with eyes. 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 Morton, discussed with her. Continue aspirin started IV heparin ischemic stroke protocol 04/27/2018 -Echo with bubble study, no PFO -Previous MRI brain revealed evolving left cerebellar peduncle CVA 8 mm, CT head 04/20 shows evolving left brainstem stroke -CT/ CTA head and neck- no flow-limiting lesions noted, right M2 50% stenosis. Repeat CT angiogram 04/18 unchanged -Permissive hypertension now Goal 140 -160 -Holding home dose of diazepam 5 mg daily -PT/OT/speech. Up to chair daily -Still requiring Cardene 17 mg/h. Continue blood pressure goals. -Target sodium 150-155 due to mild mass-effect CARDIO: Hypertensive emergency History of essential hypertension -Continue to keep SBP <140-160 -ASA 81 daily. Started IV heparin ischemic protocol 04/27/18 -Currently on Norvasc 10 mg daily, clonidine at 0.6 mg patch, hydralazine 100 mg every 8 hours, hydrochlorothiazide 25 mg daily, Cardura 4 mg daily, metoprolol 25 mg every 12, and also on Cardene infusion at 17 mg per hour -Increase Cardura to 8 mg daily, increase metoprolol to 25 mg every 8 hours on -Per family request I have discontinued lisinopril -At home on clonidine 0.3 mg twice daily and enalapril 20 mg daily. -Use nicardipine infusion, IV enalaprilat, IV hydralazine and IV labetalol as needed -ECHO revealed EF 55-60%. No cardiogenic source of emboli identified. No PFO on bubble study done 04/28/2018 -Cholesterol 140. LDL 83. Continue statin PULM: Hypoxemic respiratory failure-resolved Aspiration pneumonia right lower lobe Compromised airway protection due to stroke -With new basal ganglia stroke on the right side patient's level of consciousness has decreased and he is at risk of acute respiratory decompensation -Chest x-ray today does not show any evidence of aspiration, monitor closely -Intubated 04/19/2018 for lack of airway protection and hypoxemic respiratory failure, extubated 04/23/18 -DuoNeb every 4 hours scheduled and as needed. Continue EzPAP. Protecting airway at this time -Broad-spectrum antibiotics with Zosyn course completed GI: Constipation -NG and tube feeds with Glucerna, continue free water flushes -Strictly n.p.o. except tube feeds and meds via NG tube due to lethargy and compromised airway protection -IV famotidine -Glycerin suppository daily for bowel regimen, having BM -Start scheduled lactulose, Colace and give Fleet Enema 1 due to constipation /RENAL: Acute kidney injury-stable Hypernatremia -IV Lasix as needed. Free water replacement with flushes -Hydrochlorothiazide 25 mg daily for blood pressure control -Target sodium 150-155 due to mild mass-effect -Monitor urine output, Accurate I's and O's -Electrolyte replacement per protocol -Elevated creatinine on arrival, improving, follow closely -Bauer catheter reinserted yesterday night due to severe retention ID: Aspiration pneumonia Sepsis-resolving Leukocytosis Zosyn discontinued 04/26 Vanc and azithromycin discontinued 04/21/2018 Cultures negative to date Check UA with culture due to increasing white count HEME: Leukocytosis -Monitor CBC daily follow trends. ENDO: DMII Hemoglobin A1c 9.0. Hold metformin 1000 mg twice daily Continue sliding scale insulin Accu-Cheks with Novolin R every 6 hours Continue NovoLog NPH 70/30 18 units twice daily and sliding scale insulin Novolin R PROPH: -IV Heparin, SCDs -IV famotidine for stress ulcer prophylaxis PT/OT/Speech. CCT 35 MIN. updated at the bedside daily, son Karlos Loza updated over the phone . Will update both later today Remains lethargic but appears to be protecting airway. CT 04/26/2018 shows new right basal ganglial infarct 2.4 cm with mild mass-effect. CT on 04/28/2018 remains stable. Patient is at very high risk of acute respiratory decompensation and may require endotracheal intubation. Watch closely in the ICU. Target sodium 150-155 due to mild mass-effect. Very difficult to control blood pressure on multiple agents on high-dose Cardene infusion Progress Note: Quality - Stroke Contraindication Not Initiating IV-Tpa: Contraindicated Symptom Onset Unknown: Yes Rehab Services Assessed: Physical therapy assessment
--- NOTE | 2018-04-29 08:06 | XR ---
EXAM DATE: 04/29/2018 8:02 AM EDT AGE/SEX: 72 years / Male INDICATIONS: Abdominal distention; evaluate for ileus. CLINICAL DATA: This is the patient's subsequent encounter. Patient reports that signs and symptoms h ave been present for 4 - 6 days and indicates a pain score of 5/10. MEDICAL/SURGICAL HISTORY: Diabetes mellitus type II. Hypertension. Stroke. None. COMPARISON: [facility] – [place], ABDOMEN 1V KUB, 04/24/2018. . FINDINGS: The abdominal bowel gas pattern is normal. No abnormal masses, calcifications, or organomegaly is se en. Degenerative changes are noted throughout the thoracolumbar spine. The nasogastric tube has its t ip in the stomach. CONCLUSION: 1. No evidence of bowel obstruction, ileus or perforation. 2. Degenerative changes throughout the thoracolumbar spine. Electronically signed by: Zenon Villar MD 04/29/2018 8:05 AM EDT
[2018-04-29 08:44] LABS: Bilirubin,Urine Negative (Negative); Clarity,Urine Hazy (Clear); Color,Urine Amber (Yellw/Straw); Glucose,Urine (UA) 50 mg/dL (Negative); Leukocyte Esterase,Urine Negative (Negative); Nitrite,Urine Negative (Negative); Specific Gravity,Urine 1.018 (1.002-1.035)
[2018-04-29] MEDS: hydroCHLOROthiazide 25 MG Tablet PO SCH (08:51)
[2018-04-29] MEDS: Doxazosin 4 MG Tablet PO SCH (08:51)
[2018-04-29] MEDS: Metoprolol Tartrate 25 MG Tablet PO SCH ×3 (08:51→23:29)
[2018-04-29] MEDS: amLODIPine 10 MG Tablet PO SCH (08:52)
[2018-04-29] MEDS: Docusate Sodium Liq 100 MG/10 ML UDC NG/OG SCH ×2 (08:52→18:21)
[2018-04-29] MEDS: Glycerin Adult 2 GM Supp RECTAL SCH (08:53)
[2018-04-29] MEDS: Famotidine PF Inj 20 MG/2 ML Vial IV.PUSH SCH ×2 (09:01→21:23)
[2018-04-29] MEDS: Insulin NovoLIN Regular Correctional Sugar Inj SQ SCH ×4 (09:12→21:04)
[2018-04-29] MEDS: Insulin Aspart Prot 70/30 1,000 UNITS/10 ML Vial SQ SCH ×2 (09:16→18:14)
[2018-04-29] MEDS: Hypromellose 0.3% Opth Gel 10 GM Bottle EACH EYE SCH ×2 (10:26→22:05)
[2018-04-29] MEDS: Hyoscyamine Inj 0.5 MG/ML Ampul IV.PUSH PRN (12:15)
[2018-04-29] MEDS ORDERED: Magnesium Citrate Liq 300 ML Bottle PO ONE (15:33)
[2018-04-29 17:48] LABS: Hematocrit 32.2 % (39.0-51.0); Mean Corpuscular HGB Conc 31.2 % (32.0-36.0); Mean Corpuscular Hemoglobin 25.4 pg (27.0-34.0); Mean Corpuscular Volume 81.4 fL (80.0-100.0); Mean Platelet Volume 8.2 fL (7.0-11.0); Platelet Count 373 th/mm3 (150-450); Red Blood Count 3.95 mil/mm3 (4.50-5.90); Red Cell Distribution Width 13.6 % (11.6-17.2); White Blood Count 14.8 th/mm3 (4.0-11.0)
--- NOTE | 2018-04-29 18:04 | MB ---
cc: KillianEddieVamsi W DO DATE: 04/29/2018 HISTORY OF PRESENT ILLNESS: This is an unfortunate 72-year-old male who suffered an ischemic stroke and developed gross hematuria with urinary retention. A Bauer catheter was placed yesterday for approximately 1000 mL of urine and then he developed hematuria. He is on a heparin drip for anticoagulation therapy due to his ischemic stroke. According to his , the patient denied any history of gross hematuria or difficulty with urination or kidney stones or urinary tract infections. There is no history of prostate cancer. At the bedside, I was able to irrigate the Bauer catheter. After 2 or 3 times, the urine did clear up. His hemoglobin has been stable at 11.3 to 10.6 range. His PTT is up to 57.3. ALLERGIES: HE HAS NO KNOWN DRUG ALLERGIES. MEDICAL HISTORY: Noted for anxiety, hypertension, diabetes, and bradycardia. PAST SURGICAL HISTORY: As noted. SOCIAL HISTORY: Denies history of drug use or smoking. Never drank. FAMILY HISTORY: No family history of prostate cancer is noted. REVIEW OF SYSTEMS: I am presently unable to obtain. PHYSICAL EXAMINATION: VITAL SIGNS: Temperature is 98.0, heart rate is 56, respiratory rate 16, 136/69. GENERAL: Well-developed, well-nourished, 72-year-old man, in no acute distress, currently sedated. HEENT: Normocephalic, atraumatic. Pupils equal. NECK: Supple. HEART: Regular rate and rhythm. LUNGS: Breath sounds bilaterally. ABDOMEN: Soft, nontender, nondistended. GENITOURINARY: Uncircumcised phallus, blood near the catheter. Bauer catheter irrigated at bedside to clear. Testes are descended. EXTREMITIES: Show 1+ edema. LABORATORY DATA: White count today 16.3, hemoglobin 10.6, hematocrit 32.3, and platelet count of 390. PTT is 57.3. BMP: Sodium 153, potassium 3.6, chloride 117, CO2 28.3, BUN is 29, creatinine 1.0, glucose of 190. Urinalysis on admission is 0-3 red cells, today it shows numerous red and white cells. Urine culture is currently pending. ASSESSMENT AND PLAN: A 72-year-old male with ischemic stroke on anticoagulation therapy, developed gross hematuria. Anticoagulation therapy currently on hold. Would start gentle hydration. Irrigate p.r.n. This is most likely due to bladder overdistention from retention with immediate decompression with Bauer catheter on anticoagulation therapy. This should clear patient without hematuria on initial urinalysis on admission. We will continue to follow closely with you. Thank you for the consult and allowing me to participate in the care of this patient. DO TARAS Kendrick/alejandra , 04:29 PM , 04:38 PM
[2018-04-29] MEDS: Sodium Chloride 0.45 % Inj 1,000 ML IV.CONT SCH (18:10)
[2018-04-30] MEDS: Heparin Drip 25,000 UNIT/250 ML BAG IV.CONT PRN ×2 (00:48→19:36)
[2018-04-30 02:02] LABS: Hematocrit 32.4 % (39.0-51.0); Mean Corpuscular Hemoglobin 24.7 pg (27.0-34.0); Mean Corpuscular Volume 80.3 fL (80.0-100.0); Mean Platelet Volume 8.6 fL (7.0-11.0); Platelet Count 387 th/mm3 (150-450); Red Blood Count 4.03 mil/mm3 (4.50-5.90); Red Cell Distribution Width 13.4 % (11.6-17.2); White Blood Count 17.6 th/mm3 (4.0-11.0)
[2018-04-30 02:03] LABS: Mean Corpuscular HGB Conc 30.8 % (32.0-36.0)
[2018-04-30 02:27] LABS: Alanine Aminotransferase 46 U/L (12-78); Albumin 1.9 g/dL (3.4-5.0); Alkaline Phosphatase 94 U/L (45-117); Anion Gap 6 meq/L (5-15); Aspartate Aminotransferase 31 U/L (15-37); Blood Urea Nitrogen 35 mg/dL (7-18); Calcium 8.8 mg/dL (8.5-10.1); Carbon Dioxide 27.2 meq/L (21.0-32.0); Chloride 118 meq/L (98-107); Glomerular Filtration Rate 60 mL/min (>89); Glucose,Random 242 mg/dL (74-106); Magnesium 3.4 mg/dL (1.5-2.5); Potassium 3.7 meq/L (3.5-5.1); Sodium 151 meq/L (136-145); Total Protein 6.7 g/dL (6.4-8.2)
--- NOTE | 2018-04-30 06:01 | XR ---
EXAM DATE: 04/30/2018 4:56 AM EDT AGE/SEX: 72 years / Male INDICATIONS: Shortness of breath. CLINICAL DATA: This is the patient's subsequent encounter. Patient reports that signs and symptoms h ave been present for 2 weeks and indicates a pain score of Nonresponsive. MEDICAL/SURGICAL HISTORY: Hypertension. Diabetes mellitus type II. None. COMPARISON: C, CHEST 1V SINGLE AP, 04/28/2018. . FINDINGS: Nasogastric tube descends into the stomach. Mild perihilar parenchymal opacity is similar to prior ex am with slightly diminished lung volumes. Cardiac contours are unchanged. CONCLUSION: No significant change Electronically signed by: Qamar Batista MD 04/30/2018 6:00 AM EDT
[2018-04-30] MEDS: hydrALAZINE 50 MG Tablet PO SCH ×2 (06:05→13:07)
[2018-04-30] MEDS: Metoprolol Tartrate 25 MG Tablet PO SCH ×2 (07:05→17:30)
[2018-04-30] MEDS: Docusate Sodium Liq 100 MG/10 ML UDC NG/OG SCH ×2 (07:05→19:32)
[2018-04-30] MEDS: Doxazosin 4 MG Tablet PO SCH ×2 (07:08→09:29)
[2018-04-30] MEDS: amLODIPine 10 MG Tablet PO SCH ×2 (07:08→09:29)
--- NOTE | 2018-04-30 07:33 | P.PNCC ---
Subjective Subjective Remarks/Hospital Course: 72yM presenting to the ED overnight on 04/16/18 with right leg weakness/ numbness and unsteady gait. The patient states that he woke up yesterday morning with difficulty moving his right leg and feeling "off balance". He reports that the symptoms did not improve over the course of the day, so he went to the emergency department, where he was found to have profound hypertension. The patient says that he has a history of hypertension and "white coat syndrome" but has never had a hypertensive emergency in the past. He denies facial droop, slurred speech, aphasia, difficulty swallowing, arm weakness/ numbness, or confusion. He has no history of CVA/ TIA in the past. H/O HTN, diabetes, anxiety SUBJ 04/18/18: Patient was transferred to [facility] today for deteriorating clinical condition. I evaluated patient in the ICU. Currently has significant right facial droop worsening hemiplegia unable to move right side even though sensation appears to be preserved. 0 out of 5 power on the right upper and lower extremity. Patient also has difficulty clearing secretions and has bilateral wheezing. CT did not show any significant change an MRI is pending at this time. I explained to the family including about acute risk of deterioration and need for airway protection. They expressed good understanding SUBJECTIVE: 04/19: T-max 102. Tachycardic. Minimal to no movement to right upper lower extremity. Likely aspirating. Discussed with in detail 30 minutes benefits and risks of intubation. She will bring antibiotic eyedrops for left eye today. Patient currently in 100 percent nonrebreather. She wishes to initiate antibiotic therapy first but aware that high risk of intubation. 04/20 patient now intubated sedated. Clearly aspirated yesterday and now with significant right lower lobe consolidation. Sputum culture is pending. CT head today shows evolving left upper brainstem infarct. 04/21: Patient remains intubated, on sedation lightening patient does follow commands with the left side, his remains closed. WBC count slowly improving. Blood pressure control is within target but on the higher end of the limit. Will resume his home medication of clonidine 0.3 mg q8h 04/22: Patient remains intubated slightly sedated with propofol 10 mcg/kg/min. Blood pressure on the higher side. Restart hydralazine 100 mg p.o. every 8 hours. Attempt CPAP trials check chest x-ray. 04/23: Remains off all sedation more than 18 hours now. Opens eyes to command follows commands on the left upper and lower extremity. Tolerating CPAP mild cuff leak. Chest x-ray remains unchanged but oxygenation is good. Will give Lasix 60 mg IV 1 attempt extubation 04/24: Patient was extubated yesterday tolerating well chest x-ray improving. Using Levsin as needed for increased secretions. Patient is more awake following commands on the left side. Son at the bedside updated. Speech for swallow eval if failed NG tube and start tube feeding along with p.o. meds and free water. 04/25: NG tube in place, tube feeding and meds easily delivered. Extubated 24 hours ago and breathing comfortably, protects airway well. Remains on Cardene 20 mg/h, will start an beata inhibitor and twice daily beta-tresa. 04/26: Remains on Cardene 15 mg/h. Will add Cardura to regimen. Glucose intolerance continues, will increase long-acting insulin dose. Tube feeds are Glucerna 0.5. Right side remains paretic. 04/27: Patient became more lethargic yesterday evening, a stat repeat CT showed evolving 2 cm right basal ganglia infarct, subacute. Mild mass effect but no midline shift. Previously noted left-sided midbrain infarct again seen. Sodium is 156- will maintain high sodium. Remains on Cardene infusion. concerned about lisinopril causing some tongue swelling. I will discontinue lisinopril, increase Cardura to 4 mg daily, increase metoprolol to 50 mg every 8 hours. Patient remains lethargic but appears to be protecting airway. Discussed with Dr. Morton will start IV heparin ischemic stroke protocol. Patient is at high risk for decompensation and requiring endotracheal intubation family made aware of change in condition 04/28: Remains lethargic somnolent but arousable wakes up follows commands on the left side. Remains on Cardene currently at 7 mg/h, I will double clonidine patch to 0.6 mg/h. IV heparin started yesterday for recurrent stroke. Will do a follow-up CT of the head today. Protecting airway and there is no evidence of aspiration at this time 04/29: Remains lethargic but wakes up easily and follows commands on the left side. Currently requiring high-dose Cardene to control blood pressure despite multiple oral and transdermal medications. Remains on Cardene at 17 mg/h. I will increase Cardura to 8 mg daily, increase metoprolol to 25 every 8 hours ( dose was reduced yesterday due to bradycardia). CT of the head was unchanged and stable yesterday. Noted to have increasing white count 16 K. UA requested , patient had urinary retention and required Bauer placed back yesterday night. Constipation medications added 04/30: Remains lethargic but wakes up follows commands on the left side. Cardene infusion had to be restarted for uncontrolled blood pressure currently on 12 mg/h. bradycardia has resolved. Sodium improved to 151. Slight increase in white count of 17,000, urine culture is pending. Give 1 dose of vancomycin to cover for enterococcus Objective Vital Signs / I&O: Vital Signs 04/29/18 07:52 04/29/18 08:00 04/29/18 10:00 Temperature 98 F Pulse Rate 92 H 85 80 Respiratory Rate 15 24 Blood Pressure 151/68 H Pulse Oximetry 98 97 04/29/18 12:00 04/29/18 13:14 04/29/18 16:00 Temperature 98.2 F 98.8 F Pulse Rate 62 80 80 Respiratory Rate 20 15 Blood Pressure 136/63 146/65 H Pulse Oximetry 97 97 04/29/18 16:10 04/29/18 18:00 04/29/18 20:00 Temperature 98.5 F Pulse Rate 56 L 80 68 Respiratory Rate 16 17 Blood Pressure 154/60 H Pulse Oximetry 98 04/29/18 20:32 04/29/18 22:00 04/30/18 00:00 Temperature 98.2 F Pulse Rate 67 65 67 Respiratory Rate 19 14 Blood Pressure 171/72 H Pulse Oximetry 99 98 04/30/18 02:00 04/30/18 03:55 04/30/18 04:00 Temperature 98.0 F Pulse Rate 65 64 67 Respiratory Rate 18 19 Blood Pressure 169/73 H Pulse Oximetry 99 04/30/18 06:00 Temperature Pulse Rate 74 Respiratory Rate Blood Pressure Pulse Oximetry Intake & Output 04/29/18 04/30/18 04/30/18 18:59 06:59 18:59 Intake Total 1974 / 1974 1004 / 1004 Output Total 750 / 750 500 / 500 Balance 1225 / 1225 504 / 504 Weight 110.7 kg Intake: IV 1100 / 1100 250 / 250 Heparin/D5W 25,000 U/250 mL 25, 250 / 250 000 unit In 250 ml @ 1,200 UNIT /HR 12 mls/hr IV.CONT TITRATE PRN Rx#:[id number] Cardene Inj 50 MG In NS Inj 480 1000 / 1000 ML @ 5 MG/HR 50 mls/hr IV.CONT TITRATE PRN Rx#:[id number] Rocephin Inj 2,000 MG In NS Inj 100 / 100 100 ML @ 200 mls/hr IV.SIG Q24H SAHARA Rx#:[id number] Tube Feeding 275 / 275 254 / 254 Water Bolus Amount 600 / 600 500 / 500 Bladder Irrigation Fluid - 0 / 0 Amount Retained Indwelling Urethral Catheter 0 / 0 Output: Urine 750 / 750 Urine Amount (Catheter) 500 / 500 Indwelling Urethral Catheter 500 / 500 Other: Bladder Irrigation Fluid - Amount Instilled Indwelling Urethral Catheter 360 Bladder Irrigation Fluid - Amount Drained Indwelling Urethral Catheter 360 Date of Last Bowel Movement 04/23/18 04/23/18 Result Diagrams: 04/30/18 01:27 04/30/18 01:27 Objective Remarks: GEN: Well-nourished well-developed male, currently on NC, lethargic eyes are spontaneously open HEENT: NCAT, pupils 3 mm and reactive bilaterally, right-sided facial droop persists. NG tube in place NECK: Trachea midline, no carotid bruits. Intermittent snoring CARDIO: S1-S2 normal no murmurs, no JVD. Poorly controlled hypertension on Cardene infusion 12 mg per hour PULM: Air entry diminished bilateral bases, no wheezes. Protecting airway. Few conducted rhonchi ABD: Soft, protuberant, non-tender, no guarding, bowel sounds active. EXT: No significant peripheral edema, warm and well-perfused SKIN: No rashes or lesions NEURO: Lethargic somnolent but opens eyes to verbal command. Right-sided facial droop. Following commands on the left upper and lower extremity, flaccid on the right side. Tracks with eyes. 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 Morton. Continue aspirin started IV heparin ischemic stroke protocol 04/27/2018 -Echo with bubble study, no PFO, normal EF no cardiac source of emboli from -Previous MRI brain revealed evolving left cerebellar peduncle CVA 8 mm, CT head 04/20 shows evolving left brainstem stroke -CT/ CTA head and neck- no flow-limiting lesions noted, right M2 50% stenosis. Repeat CT angiogram 04/18 unchanged -Permissive hypertension now Goal 140 -170 -Holding home dose of diazepam 5 mg daily -PT/OT/speech. Up to chair daily -Still requiring Cardene 12 mg/h. Continue blood pressure goals. -Target sodium 145-155 due to mild mass-effect CARDIO: Hypertensive emergency History of essential hypertension -Continue to keep SBP 140-170 -ASA 81 daily. IV heparin ischemic stroke protocol 04/27/18 -Currently on Norvasc 10 mg daily, clonidine at 0.6 mg patch, hydralazine 100 mg every 8 hours, hydrochlorothiazide 25 mg daily, Cardura 8 mg daily, metoprolol 25 mg every 8, and also on Cardene infusion at 12 mg per hour -Increase metoprolol to 50 mg every 8 hours on 04/30/2018 -Per family request I have discontinued lisinopril -At home on clonidine 0.3 mg twice daily and enalapril 20 mg daily. -Use nicardipine infusion, IV hydralazine and IV labetalol as needed -ECHO revealed EF 55-60%. No cardiogenic source of emboli identified. No PFO on bubble study done 04/28/2018 -Cholesterol 140. LDL 83. Continue statin PULM: Hypoxemic respiratory failure-resolved Aspiration pneumonia right lower lobe Compromised airway protection due to stroke -With new basal ganglia stroke on the right side patient's level of consciousness has decreased and he is at risk of acute respiratory decompensation -Chest x-ray today does not show any evidence of aspiration, monitor closely -Intubated 04/19/2018 for lack of airway protection and hypoxemic respiratory failure, extubated 04/23/18 -DuoNeb every 4 hours scheduled and as needed. Continue EzPAP. Protecting airway at this time -Broad-spectrum antibiotics with Zosyn course completed. Currently on Rocephin for probable UTI GI: Constipation -NG and tube feeds with Glucerna, continue free water flushes -Strictly n.p.o. except tube feeds and meds via NG tube due to lethargy and compromised airway protection -IV famotidine -Glycerin suppository daily for bowel regimen, having BM -Scheduled lactulose, Colace and give Fleet Enema 1 due to constipation -Repeat dose of mag citrate today /RENAL: Acute kidney injury-stable Hypernatremia Hematuria most likely secondary to UTI and Bauer trauma -IV hydration per urology recommendation due to hematuria -Irrigate Bauer as needed per urology Dr. Daily -Hydrochlorothiazide 25 mg daily for blood pressure control -Target sodium 145-155 due to mild mass-effect -Monitor urine output, Accurate I's and O's -Electrolyte replacement per protocol -Elevated creatinine on arrival, improving, follow closely -Bauer catheter reinserted 04/28 night due to severe retention-continue due to hematuria ID: Aspiration pneumonia Sepsis Leukocytosis Probable UTI Zosyn discontinued 04/26 Vanc and azithromycin discontinued 04/21/2018 Rocephin 2 g IV daily started 04/29/2018 Give 1 dose of vancomycin today until cultures are available Urine culture pending, blood culture 2 today HEME: Leukocytosis -Monitor CBC daily follow trends. -Received Decadron 04/29/2018 for possible tongue swelling ENDO: DMII Hemoglobin A1c 9.0. Hold metformin 1000 mg twice daily Continue sliding scale insulin Accu-Cheks with Novolin R every 6 hours Continue NovoLog NPH 70/30 18 units twice daily and sliding scale insulin Novolin R PROPH: -IV Heparin, SCDs -IV famotidine for stress ulcer prophylaxis PT/OT/Speech. CCT 35 MIN. updated at the bedside daily, son Karlos Loza last updated over the phone 04/29/18. Remains lethargic but appears to be protecting airway. CT 04/26/2018 shows new right basal ganglial infarct 2.4 cm with mild mass-effect. CT on 04/28/2018 remains stable. Patient is at very high risk of acute respiratory decompensation and may require endotracheal intubation. Watch closely in the ICU. Target sodium 150-155 due to mild mass-effect. Very difficult to control blood pressure on multiple agents on high-dose Cardene infusion Code Status: Full code Progress Note: Quality - Stroke Contraindication Not Initiating IV-Tpa: Contraindicated Symptom Onset Unknown: Yes Rehab Services Assessed: Physical therapy assessment
[2018-04-30] MEDS ORDERED: Magnesium Citrate Liq 300 ML Bottle PO ONE (08:30)
[2018-04-30] MEDS: niCARdipine Inj 50 MG in Sodium Chlor 0.9% Inj 480 ML IV.CONT PRN (08:56)
[2018-04-30] MEDS ORDERED: Vancomycin Inj 1,250 MG in Sodium Chlor 0.9% Inj 250 ML IV.SIG ONE (09:00)
[2018-04-30] MEDS: hydroCHLOROthiazide 25 MG Tablet PO SCH (09:26)
[2018-04-30] MEDS: Insulin NovoLIN Regular Correctional Sugar Inj SQ SCH ×4 (09:26→22:53)
[2018-04-30] MEDS: Famotidine PF Inj 20 MG/2 ML Vial IV.PUSH SCH ×2 (09:27→22:52)
[2018-04-30] MEDS: Glycerin Adult 2 GM Supp RECTAL SCH (09:27)
[2018-04-30] MEDS: Hypromellose 0.3% Opth Gel 10 GM Bottle EACH EYE SCH ×2 (09:28→22:52)
[2018-04-30] MEDS: Hyoscyamine Inj 0.5 MG/ML Ampul IV.PUSH PRN (09:30)
[2018-04-30] MEDS: Insulin Aspart Prot 70/30 1,000 UNITS/10 ML Vial SQ SCH ×2 (09:50→19:32)
--- NOTE | 2018-04-30 13:01 | P.CONREH ---
History of Present Illness Service: Physical medicine rehabilitation Consult date: 04/30/18 Primary Care Provider: Roel Whittington Family Provider: Roel Whittington Chief Complaint: Right leg weakness History of Present Illness: Karlos Loza is a 72-year-old male admitted to [facility] 04/16/18 with right lower extremity weakness and numbness which started 1 day prior to admission. Head CT 04/16/18 showed no acute changes with old tiny lacunar infarct in the right basal ganglia. CTA head 04/16/18 showed atretic proximal right A1 segment. CT of the neck showed short segment with calcific and noncalcific plaque proximal left ICA less than 40% stenosis. Brain MRI 04/17/18 showed restricted diffusion in left cerebellar peduncle. Patient was noted to have significant hypertension and required Cardene drip. On 04/18/18 he developed worsening of right-sided weakness both upper and lower extremity. Head CT 05/10/18 showed small 8 mm hypodensity in the left cerebral peduncle consistent with a small stroke. No evidence of hemorrhage. 04/19/18 he was noted to have possible aspiration. On 04/20/18 he was intubated. Head CT 04/20/18 showed evolving infarct in the upper left brain stem. No new hemorrhage or mass effect. No acute findings. On 04/23/18 he was extubated. On 04/26/18 he was noted to be more lethargic. Head CT showed evolving 2 cm right basal ganglia infarct which was subacute. He was started on IV heparin. He is continued on Cardene. Review of Systems other (Unable to complete due to mental status) [facility] History History Provided By: Patient - Medical History Medical History: Medical History (Last Reviewed 04/29/18 @ 11:28 by Fide Brower) History of anxiety History of hypertension Hx of diabetes mellitus Hx of sinus bradycardia - Social History I have reviewed the patient's Social History: Yes - Tobacco History Second Hand Smoke Exposure: No Tobacco Use In Past 30 Days: No Smoking Status: Never smoker - Alcohol History How Often Do You Have a Drink Containing Alcohol: Monthly or less - Substance Use History Substance History: No History of Abuse - Immunization History Tetanus Immunization: Unsure Hx Influenza Vaccine This Season: Yes Medications and Allergies Active Medications: Active Medications Albuterol (Albuterol Neb (Prn)) 2.5 mg NEB Q2HR NEB PRN PRN Reason: DYSPNEA Last Admin: 04/27/18 11:27 Dose: 2.5 mg Albuterol (Duoneb Neb ([facility])) 1 ampul NEB Q6HR NEB [facility] Last Admin: 04/30/18 08:21 Dose: 1 ampul Amlodipine Besylate (Norvasc) 10 mg PO DAILY [facility] Last Admin: 04/30/18 09:29 Dose: Not Given Artificial Tears (Genteal Severe Dry Eye Relief 0.3% Opth Gel) 1 drops EACH EYE BID [facility] Last Admin: 04/30/18 09:28 Dose: 1 drops Aspirin (Aspirin Chew) 81 mg PO DAILY [facility] Last Admin: 04/30/18 09:26 Dose: 81 mg Atorvastatin Calcium (Lipitor) 40 mg PO HS [facility] Last Admin: 04/29/18 21:23 Dose: 40 mg Bisacodyl (Dulcolax Supp) 10 mg RECTAL DAILY PRN PRN Reason: if no BM in last 24h Clonidine HCl (Catapress-Tts 0.3 Mg Patch.7d) 2 patch T-DERMAL Q7D [facility] Last Admin: 04/28/18 09:32 Dose: 2 patch Dextrose (D50w Vial) 50 ml IV.PUSH UNSCH PRN PRN Reason: PER HYPOGLYCEMIA PROTOCOL Diazepam (Valium) 5 mg PO DAILY [facility] Last Admin: 04/18/18 09:18 Dose: Not Given Docusate Sodium (Colace Liq) 100 mg NG/OG Q12H [facility] Last Admin: 04/30/18 07:05 Dose: 100 mg Doxazosin Mesylate (Cardura) 8 mg PO DAILY [facility] Last Admin: 04/30/18 09:29 Dose: Not Given Famotidine (Pepcid Pf Inj) 20 mg IV.PUSH Q12HR [facility] Last Admin: 04/30/18 09:27 Dose: 20 mg Glucagon (Glucagon Inj) 1 mg OTHER PRN PRN PRN Reason: for Hypoglycemia Protocol Glycerin (Glycerin Adult Supp) 2 gm RECTAL DAILY [facility] Last Admin: 04/30/18 09:27 Dose: 2 gm Hydralazine HCl (Apresoline) 100 mg PO Q8HR [facility] Last Admin: 04/30/18 06:05 Dose: 100 mg Hydralazine HCl (Apresoline Inj) 20 mg IV.PUSH Q1H PRN PRN Reason: SBP>160, DBP >95 Hydrochlorothiazide (Hydrodiuril) 25 mg PO DAILY [facility] Last Admin: 04/30/18 09:26 Dose: 25 mg Hyoscyamine (Levsin Liq) 0.25 mg SL Q6H PRN PRN Reason: SECRETIONS Last Admin: 04/24/18 14:39 Dose: 0.25 mg Hyoscyamine (Levsin Inj) 0.25 mg IV.PUSH Q6H PRN PRN Reason: SECRETIONS Last Admin: 04/30/18 09:30 Dose: 0.25 mg Magnesium Sulfate Inj 4 gm/ (Sodium Chloride) 100 mls @ 50 mls/hr IV.SIG UNSCH PRN PRN Reason: For Magnesium 0.9 - 1.1 mg/dL Magnesium Sulfate Inj 2 gm/ (Sodium Chloride) 100 mls @ 50 mls/hr IV.SIG UNSCH PRN PRN Reason: For Magnesium 1.2 - 1.6 mg/dL Potassium Chloride (Kcl 40 Meq Premix Inj) 40 meq in 100 mls @ 25 mls/hr IV.SIG Q2H PRN PRN Reason: For Potassium 2.8 - 3.2 mEq/L Potassium Chloride (Kcl 20 Meq Premix Inj) 20 meq in 100 mls @ 50 mls/hr IV.SIG Q2H PRN PRN Reason: For Potassium 3.3 - 3.5 mEq/L Potassium Chloride (Kcl 40 Meq Premix Inj) 40 meq in 100 mls @ 25 mls/hr IV.SIG UNSCH PRN PRN Reason: For Potassium 3.3 - 3.5 mEq/L Potassium Chloride (Kcl 20 Meq Premix Inj) 20 meq in 100 mls @ 50 mls/hr IV.SIG Q2H PRN PRN Reason: For Potassium 2.8 - 3.2 mEq/L Potassium Phosphate 30 mmol/ (Sodium Chloride) 260 mls @ 42 mls/hr IV.SIG UNSCH PRN PRN Reason: SEE LABEL COMMENTS Sodium Phosphate 30 mmol/ (Sodium Chloride) 260 mls @ 42 mls/hr IV.SIG UNSCH PRN PRN Reason: For Phosphorus < 2.5 mg/dL Acetaminophen (Ofirmev Inj) 650 mg in 65 mls @ 260 mls/hr IV.SIG Q6H PRN PRN Reason: FEVER Nicardipine HCl 50 mg/ Sodium (Chloride) 500 mls @ 50 mls/hr IV.CONT TITRATE PRN; Protocol PRN Reason: Per Protocol Last Titration: 04/30/18 11:04 Dose: 5 mg/hr, 50 mls/hr Heparin Sodium/Dextrose (Heparin/D5w 25,000 U/250 Ml) 25,000 unit in 250 mls @ 12 mls/hr IV.CONT TITRATE PRN; Protocol PRN Reason: Per Protocol Last Titration: 04/30/18 11:06 Dose: 1,500 unit/hr, 15 mls/hr Ceftriaxone Sodium 2,000 mg/ (Sodium Chloride) 100 mls @ 200 mls/hr IV.SIG Q24H [facility] Last Infusion: 04/30/18 10:00 Dose: Infused Sodium Chloride (1/2 Normal Saline Inj) 1,000 mls @ 30 mls/hr IV.CONT .Q24H [facility] Last Admin: 04/29/18 18:10 Dose: 30 mls/hr Insulin Aspart (Novolog Mix 70/30 Inj) 26 units SQ BID@0800,1700 [facility] Last Admin: 04/30/18 09:50 Dose: 26 units Insulin Human Regular (Novolin R Correctional Sugar Inj) 0 units SQ ACHS [facility]; Protocol Last Admin: 04/30/18 12:55 Dose: 7 units Labetalol HCl (Trandate Inj) 20 mg IV.PUSH Q1H PRN PRN Reason: Sbp>170, Dbp>95 Lactulose (Lactulose Liq) 30 ml PO TID [facility] Last Admin: 04/30/18 12:56 Dose: 30 ml Magnesium Oxide (Mag-Ox) 800 mg PO UNSCH PRN PRN Reason: For Magnesium 1.2 - 1.6 mg/dL Metoprolol Tartrate (Lopressor) 25 mg PO Q8H [facility] Last Admin: 04/30/18 07:05 Dose: 25 mg Ondansetron HCl (Zofran Inj) 4 mg IV.PUSH Q6H PRN PRN Reason: NAUSEA OR VOMITING Polyethylene Glycol (Miralax) 17 gm PO BID PRN PRN Reason: MODERATE - SEVERE CONSTIPATION Potassium Bicarb/Potassium Chloride (K-Lyte Cl Eff) 50 meq PO UNSCH PRN PRN Reason: For Potassium 3.3 - 3.5 mEq/L Potassium Phosphate (K-Phos Original) 2,000 mg PO Q4H PRN PRN Reason: Phosphorus Less Than 2.5 mg/dL Last Admin: 04/20/18 16:44 Dose: 2,000 mg Potassium Phosphate (K-Phos Original) 2,000 mg PO UNSCH PRN PRN Reason: SEE LABEL COMMENTS Sodium Chloride (Ns Flush) 2 ml IV.FLUSH PRN PRN PRN Reason: FLUSH AFTER USING IV ACCESS Last Admin: 04/24/18 08:12 Dose: 2 ml Sodium Chloride (Ns Flush) 2 ml IV.FLUSH UNSCH PRN PRN Reason: FLUSH AFTER USING IV ACCESS Sterile Water (Free Water) 250 ml NG/OG Q6HR [facility] Last Admin: 04/30/18 12:55 Dose: 250 ml Allergies Allergy/AdvReac Type Severity Reaction Status Date / Time No Known Allergies Allergy Uncoded 07/16/16 03:08 Home Medications Medication Instructions Recorded Confirmed Type clonidine HCl 0.3 mg PO BID 04/16/18 04/16/18 History diazepam [Valium] 5 mg PO DAILY 04/16/18 04/16/18 History enalapril maleate 20 mg PO DAILY 04/16/18 04/16/18 History metformin 500 mg PO BID 04/16/18 04/16/18 History insulin NPH and regular human 1 sliding scale dose SUB-Q UD 04/17/18 04/17/18 History [Humulin 70/30 U-100 Insulin] tobramycin-dexamethasone 1 drp OPHTHALMIC (EYE) QID 04/24/18 04/24/18 History Exam - Physical Examination Vital Signs / I&O: Vital Signs 04/29/18 13:14 04/29/18 16:00 04/29/18 16:10 Temperature 98.8 F Pulse Rate 80 80 56 L Respiratory Rate 15 16 Blood Pressure 146/65 H Pulse Oximetry 97 04/29/18 18:00 04/29/18 20:00 04/29/18 20:32 Temperature 98.5 F Pulse Rate 80 68 67 Respiratory Rate 17 19 Blood Pressure 154/60 H Pulse Oximetry 98 99 04/29/18 22:00 04/30/18 00:00 04/30/18 02:00 Temperature 98.2 F Pulse Rate 65 67 65 Respiratory Rate 14 Blood Pressure 171/72 H Pulse Oximetry 98 04/30/18 03:55 04/30/18 04:00 04/30/18 06:00 Temperature 98.0 F Pulse Rate 64 67 74 Respiratory Rate 18 19 Blood Pressure 169/73 H Pulse Oximetry 99 04/30/18 08:00 04/30/18 08:22 04/30/18 10:00 Temperature 98.6 F Pulse Rate 64 62 62 Respiratory Rate 16 15 Blood Pressure 168/71 H Pulse Oximetry 97 98 Intake & Output 04/29/18 04/30/18 04/30/18 18:59 06:59 18:59 Intake Total 1974 / 1974 1004 / 1004 600 / 600 Output Total 750 / 750 500 / 500 Balance 1225 / 1225 504 / 504 600 / 600 Weight 110.7 kg Intake: IV 1100 / 1100 250 / 250 600 / 600 Heparin/D5W 25,000 U/250 mL 25, 250 / 250 000 unit In 250 ml @ 1,200 UNIT /HR 12 mls/hr IV.CONT TITRATE PRN Rx#:[id number] Cardene Inj 50 MG In NS Inj 480 1000 / 1000 500 / 500 ML @ 5 MG/HR 50 mls/hr IV.CONT TITRATE PRN Rx#:[id number] Rocephin Inj 2,000 MG In NS Inj 100 / 100 100 / 100 100 ML @ 200 mls/hr IV.SIG Q24H [facility] Rx#:[id number] Tube Feeding 275 / 275 254 / 254 Water Bolus Amount 600 / 600 500 / 500 Bladder Irrigation Fluid - 0 / 0 Amount Retained Indwelling Urethral Catheter 0 / 0 Output: Urine 750 / 750 Urine Amount (Catheter) 500 / 500 Indwelling Urethral Catheter 500 / 500 Other: Bladder Irrigation Fluid - Amount Instilled Indwelling Urethral Catheter 360 Bladder Irrigation Fluid - Amount Drained Indwelling Urethral Catheter 360 Date of Last Bowel Movement 04/23/18 04/23/18 04/23/18 Intake & Output 04/28/18 04/29/18 04/30/18 05/01/18 06:59 06:59 06:59 06:59 Intake Total 3137 / 3137 4551 / 4551 2979 / 2979 600 / 600 Output Total 2074 / 5 2500 / 2500 1250 / 1250 Balance 1062 / 1062 2051 / 2051 1729 / 1729 600 / 600 Weight 104.6 kg 106.5 kg 110.7 kg General: No acute distress, Other (Up in stretcher chair; niece at bedside) Respiratory: Lungs CTA, Non-labored respirations, BS equal, Other (NC O2 in place) Gastrointestinal: Hypoactive bowel sounds, Distended Date of Last Bowel Movement: 04/23/18 Cardiovascular: Normal rate, Regular rhythm Psychiatric: Other (Opens eyes to voice.) - Neurologic Orientation: unable to assess: Self (Responds to name), Place, Time, Situation Neurologic: Pupils (PERRLA), EOM (Left gaze preference), Visual clement ( Decreased response to threat right), Speech (Not attempting to verbalize) Motor: Right Upper Extremity (No spontaneous or voluntary movement), Left Upper Extremity (Record Label Intern to command), Right Lower Extremity (No spontaneous or voluntary movement), Left Lower Extremity (Moves toes to command) Sensory: Unable to accurately assess Babinski: Positive (Equivocal right) Clonus: Negative Results - Labs CBC & Chem 7: 04/30/18 01:27 04/30/18 01:27 Labs: Laboratory Results - last 24 hr 04/29/18 04/29/18 04/29/18 17:10 17:56 18:05 WBC 14.8 H RBC 3.95 L Hgb 10.0 L Hct 32.2 L MCV 81.4 MCH 25.4 L MCHC 31.2 L RDW 13.6 Plt Count 373 MPV 8.2 Hematology Comments APTT 32.7 H D Sodium Potassium Chloride Carbon Dioxide Anion Gap BUN Creatinine Estimated GFR POC Glucose 159 H Random Glucose Calcium Magnesium Total Bilirubin AST ALT Alkaline Phosphatase Total Protein Albumin 04/29/18 04/30/18 04/30/18 21:48 01:27 01:27 WBC 17.6 H RBC 4.03 L Hgb 10.0 L Hct 32.4 L MCV 80.3 MCH 24.7 L MCHC 30.8 L RDW 13.4 Plt Count 387 MPV 8.6 Hematology Comments APTT Sodium 151 H Potassium 3.7 Chloride 118 H Carbon Dioxide 27.2 Anion Gap 6 BUN 35 H Creatinine 1.18 Estimated GFR 60 L POC Glucose 213 H Random Glucose 242 H D Calcium 8.8 Magnesium 3.4 H D Total Bilirubin 0.1 L AST 31 ALT 46 Alkaline Phosphatase 94 Total Protein 6.7 Albumin 1.9 L 04/30/18 04/30/18 04/30/18 01:27 02:18 09:10 WBC RBC Hgb Hct MCV MCH MCHC RDW Plt Count MPV Hematology Comments APTT 46.8 H D 26.3 D Sodium Potassium Chloride Carbon Dioxide Anion Gap BUN Creatinine Estimated GFR POC Glucose 220 H Random Glucose Calcium Magnesium Total Bilirubin AST ALT Alkaline Phosphatase Total Protein Albumin 04/30/18 04/30/18 09:10 12:48 WBC RBC Hgb Hct MCV MCH MCHC RDW Plt Count MPV Hematology Comments APTT Sodium Potassium Chloride Carbon Dioxide Anion Gap BUN Creatinine Estimated GFR POC Glucose 279 H 293 H Random Glucose Calcium Magnesium Total Bilirubin AST ALT Alkaline Phosphatase Total Protein Albumin - Imaging Impressions Chest X-Ray 04/30/18 06:00 CONCLUSION: No significant change Assessment and Plan (1) Brainstem stroke Status: Acute Code(s): I63.9 - Cerebral infarction, unspecified - Plan Assessment: 1. 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 with bypass feeding 2. Impaired mobility and ADLs 3. Uncontrolled hypertension 4. Diabetes mellitus 5. History of anxiety 6. Aspiration pneumonia/sepsis Recommendations: 1. Physical therapy is mobilizing up to stretch her chair. Continue to advance as tolerated 2. Occupational Therapy is addressing ADLs and patient currently requires assistance 3. Speech therapy has evaluated swallowing patient is currently n.p.o. 4. Reposition every 2 hours to maintain skin integrity and monitor carefully for breakdown 5. Patient will need ongoing rehabilitation at discharge. Will follow in conjunction with case management for level of care. LTAC is being considered 6. Will follow while hospitalized and at discharge is Thank you for this consult
[2018-04-30] MEDS ORDERED: Diatrizoate Meglum/Diatrizoate Sod Liq 9 ML UDC PO ONE (17:15)
[2018-04-30] MEDS: Sodium Chloride 0.45 % Inj 1,000 ML IV.CONT SCH (17:38)
--- NOTE | 2018-04-30 22:39 | CT ---
EXAM DATE: 04/30/2018 10:15 PM EDT AGE/SEX: 72 years / Male INDICATIONS: Vomiting, abdominal distention, rule out obstruction. CLINICAL DATA: This is the patient's subsequent encounter. Patient reports that signs and symptoms h ave been present for 2 days and indicates a pain score of 3/10. MEDICAL/SURGICAL HISTORY: Hypertension. Diabetes. None. RADIATION DOSE: 17.01 CTDI (mGy) COMPARISON: No prior exams available for comparison. TECHNIQUE: Multiple contiguous axial images were obtained through the abdomen. Images were obtained using multiple row detector helical technique. Using automated exposure control and adjustment of the mA and/or kV according to patient size, radiation dose was kept as low as reasonably achievable to o btain optimal diagnostic quality images. DICOM format image data is available electronically for rev iew and comparison. FINDINGS: Mild basilar atelectasis and trace pleural fluid. No acute findings liver, spleen, adrenals, kidneys or pancreas. There is gaseous distention of small and large bowel most characteristic of a diffuse ileus. Gas is present all the way to the distal colo n and rectum. There is mild anasarca. No free fluid or free air. Bauer catheter in bladder. Scrotal hydrocele prese nt. CONCLUSION: 1. Diffuse gaseous distention of small and large bowel with air-fluid levels most characteristic of a diffuse ileus. No free air. No significant free fluid. 2. Trace pleural fluid with dependent atelectasis. 3. NG tip in stomach. Bauer catheter in bladder. Enlarged prostate. 4. Mild to moderate anasarca. Scrotal hydroceles. Electronically signed by: Angel Farrell MD 04/30/2018 10:38 PM EDT
[2018-05-01] MEDS: Metoprolol Tartrate 25 MG Tablet PO SCH (01:12)
[2018-05-01] MEDS: hydrALAZINE 50 MG Tablet PO SCH (01:12)
[2018-05-01] MEDS: Hyoscyamine Inj 0.5 MG/ML Ampul IV.PUSH PRN (01:13)
--- NOTE | 2018-05-01 01:48 | XR ---
EXAM DATE: 05/01/2018 1:38 AM EDT AGE/SEX: 72 years / Male INDICATIONS: Shortness of breath CLINICAL DATA: This is the patient's subsequent encounter. Patient reports that signs and symptoms h ave been present for 2 weeks and indicates a pain score of Nonresponsive. MEDICAL/SURGICAL HISTORY: . Hypertension. Diabetes mellitus type II. None. COMPARISON: [facility] [place], CHEST 1V SINGLE AP, 04/30/2018. . FINDINGS: Faint parenchymal infiltrate left base again noted. No pleural effusion. No pneumothorax. Heart size stable, within normal limits. Nasogastric tube present with tip in the upper stomach, sidehole slightly above the GE junction, no c hange. CONCLUSION: No significant change. Electronically signed by: Qamar Maier MD 05/01/2018 1:47 AM EDT
[2018-05-01 03:16] LABS: Hematocrit 28.1 % (39.0-51.0); Mean Corpuscular HGB Conc 31.9 % (32.0-36.0); Mean Corpuscular Hemoglobin 25.3 pg (27.0-34.0); Mean Corpuscular Volume 79.3 fL (80.0-100.0); Mean Platelet Volume 9.4 fL (7.0-11.0); Platelet Count 389 th/mm3 (150-450); Red Blood Count 3.54 mil/mm3 (4.50-5.90); Red Cell Distribution Width 13.9 % (11.6-17.2); White Blood Count 21.1 th/mm3 (4.0-11.0)
[2018-05-01 03:37] LABS: Alanine Aminotransferase 155 U/L (12-78); Alkaline Phosphatase 77 U/L (45-117); Anion Gap 7 meq/L (5-15); Aspartate Aminotransferase 166 U/L (15-37); Blood Urea Nitrogen 53 mg/dL (7-18); Calcium 8.7 mg/dL (8.5-10.1); Carbon Dioxide 33.3 meq/L (21.0-32.0); Chloride 113 meq/L (98-107); Glomerular Filtration Rate 37 mL/min (>89); Glucose,Random 202 mg/dL (74-106); Phosphorus 4.4 mg/dL (2.5-4.9); Potassium 3.7 meq/L (3.5-5.1); Sodium 153 meq/L (136-145); Total Protein 6.4 g/dL (6.4-8.2)
[2018-05-01 06:56] VITALS: BP 118/67; TEMP 98.8
[2018-05-01] MEDS ORDERED: Midazolam Inj 5 MG/ML 1 ML Vial ONE (07:12)
[2018-05-01] MEDS ORDERED: Etomidate Inj 40 MG/20 ML Vial IV.PUSH ONE (07:12)
--- NOTE | 2018-05-01 07:24 | P.PCN ---
Date of procedure: 05/01/18 Pre-op diagnosis: Acute hypoxemic respiratory failure Post-op diagnosis: same Procedure: Endotracheal intubation PROCEDURE: Orotracheal intubation INDICATION: Acute respiratory failure/aspiration DETAILS OF PROCEDURE The patient was placed in optimal position and preoxygenated with 100% FiO2 via bag valve mask. At the start oxygen saturation was 81% on 100% NRB, improved to 93% before intubation. The patient was administered 10 milligrams Versed IV and 50 milligrams rocuronium IV. I entered the oropharynx with a size 4 laryngoscope blade and obtained a grade 1 view of the airway. On single attempt a size 8.0 cuffed endotracheal tube was passed through the vocal cords. Correct tube location was confirmed with end tidal CO2 detector and by auscultating over bilateral lung clement. The endotracheal tube was secured with adhesive tape at a depth of 24 cm at the lips. The patient was connected to the ventilator. The patient tolerated the procedure well without any apparent complications. Oxygen saturations were maintained greater than 95% all times during the procedure. STAT chest x-ray pending at time of dictation. Anesthesia: ANALIAA Surgeon: Jenni Foote Estimated blood loss (mL): 1 Condition: critical Disposition: ICU
--- NOTE | 2018-05-01 07:28 | P.PNCC ---
Subjective Subjective Remarks/Hospital Course: 72yM presenting to the ED overnight on 04/16/18 with right leg weakness/ numbness and unsteady gait. The patient states that he woke up yesterday morning with difficulty moving his right leg and feeling "off balance". He reports that the symptoms did not improve over the course of the day, so he went to the emergency department, where he was found to have profound hypertension. The patient says that he has a history of hypertension and "white coat syndrome" but has never had a hypertensive emergency in the past. He denies facial droop, slurred speech, aphasia, difficulty swallowing, arm weakness/ numbness, or confusion. He has no history of CVA/ TIA in the past. H/O HTN, diabetes, anxiety SUBJ 04/18/18: Patient was transferred to [facility] today for deteriorating clinical condition. I evaluated patient in the ICU. Currently has significant right facial droop worsening hemiplegia unable to move right side even though sensation appears to be preserved. 0 out of 5 power on the right upper and lower extremity. Patient also has difficulty clearing secretions and has bilateral wheezing. CT did not show any significant change an MRI is pending at this time. I explained to the family including about acute risk of deterioration and need for airway protection. They expressed good understanding SUBJECTIVE: 04/19: T-max 102. Tachycardic. Minimal to no movement to right upper lower extremity. Likely aspirating. Discussed with in detail 30 minutes benefits and risks of intubation. She will bring antibiotic eyedrops for left eye today. Patient currently in 100 percent nonrebreather. She wishes to initiate antibiotic therapy first but aware that high risk of intubation. 04/20 patient now intubated sedated. Clearly aspirated yesterday and now with significant right lower lobe consolidation. Sputum culture is pending. CT head today shows evolving left upper brainstem infarct. 04/21: Patient remains intubated, on sedation lightening patient does follow commands with the left side, his remains closed. WBC count slowly improving. Blood pressure control is within target but on the higher end of the limit. Will resume his home medication of clonidine 0.3 mg q8h 04/22: Patient remains intubated slightly sedated with propofol 10 mcg/kg/min. Blood pressure on the higher side. Restart hydralazine 100 mg p.o. every 8 hours. Attempt CPAP trials check chest x-ray. 04/23: Remains off all sedation more than 18 hours now. Opens eyes to command follows commands on the left upper and lower extremity. Tolerating CPAP mild cuff leak. Chest x-ray remains unchanged but oxygenation is good. Will give Lasix 60 mg IV 1 attempt extubation 04/24: Patient was extubated yesterday tolerating well chest x-ray improving. Using Levsin as needed for increased secretions. Patient is more awake following commands on the left side. Son at the bedside updated. Speech for swallow eval if failed NG tube and start tube feeding along with p.o. meds and free water. 04/25: NG tube in place, tube feeding and meds easily delivered. Extubated 24 hours ago and breathing comfortably, protects airway well. Remains on Cardene 20 mg/h, will start an beata inhibitor and twice daily beta-tresa. 04/26: Remains on Cardene 15 mg/h. Will add Cardura to regimen. Glucose intolerance continues, will increase long-acting insulin dose. Tube feeds are Glucerna 0.5. Right side remains paretic. 04/27: Patient became more lethargic yesterday evening, a stat repeat CT showed evolving 2 cm right basal ganglia infarct, subacute. Mild mass effect but no midline shift. Previously noted left-sided midbrain infarct again seen. Sodium is 156- will maintain high sodium. Remains on Cardene infusion. concerned about lisinopril causing some tongue swelling. I will discontinue lisinopril, increase Cardura to 4 mg daily, increase metoprolol to 50 mg every 8 hours. Patient remains lethargic but appears to be protecting airway. Discussed with Dr. Morton will start IV heparin ischemic stroke protocol. Patient is at high risk for decompensation and requiring endotracheal intubation family made aware of change in condition 04/28: Remains lethargic somnolent but arousable wakes up follows commands on the left side. Remains on Cardene currently at 7 mg/h, I will double clonidine patch to 0.6 mg/h. IV heparin started yesterday for recurrent stroke. Will do a follow-up CT of the head today. Protecting airway and there is no evidence of aspiration at this time 04/29: Remains lethargic but wakes up easily and follows commands on the left side. Currently requiring high-dose Cardene to control blood pressure despite multiple oral and transdermal medications. Remains on Cardene at 17 mg/h. I will increase Cardura to 8 mg daily, increase metoprolol to 25 every 8 hours ( dose was reduced yesterday due to bradycardia). CT of the head was unchanged and stable yesterday. Noted to have increasing white count 16 K. UA requested , patient had urinary retention and required Bauer placed back yesterday night. Constipation medications added 04/30: Remains lethargic but wakes up follows commands on the left side. Cardene infusion had to be restarted for uncontrolled blood pressure currently on 12 mg/h. bradycardia has resolved. Sodium improved to 151. Slight increase in white count of 17,000, urine culture is pending. Give 1 dose of vancomycin to cover for enterococcus 05/01: Significant ileus with evidence of aspiration yesterday. CT showed ileus. Today morning patient was very lethargic but maintaining oxygen saturation. At about 6:50 AM I was emergently called to the room as the patient had another episode of vomiting and became hypoxemic. He was placed on 100% nonrebreather but oxygen saturation started to decline quickly to low 80s. I attempted to discuss with patient's who seem to be very distraught and claimed that he does not need to be on the ventilator. I explained to her that if he remains a full code I am obligated to place him on a mechanical ventilator and otherwise he will immediately from hypoxemia induced cardiac arrest, as his oxygen saturation was rapidly declining and he was becoming bradycardic. She wanted to discuss with her but I explained that there was no time for that. I also quickly updated patient's son Karlos Loza and proceeded with endotracheal intubation. With rapid desaturation patient's heart rate started to decline to 37/min,, we started emergency bag and mask ventilation and pushed epinephrine 1 mg IV 1. With bag and mask ventilation oxygen saturation improved to 94% and heart rate improved to 70s. With endotracheal intubation he stabilized further. I will consult palliative care for family support and further decision making Objective Vital Signs / I&O: Vital Signs 04/30/18 08:00 04/30/18 08:22 04/30/18 10:00 Temperature 98.6 F Pulse Rate 64 62 62 Respiratory Rate 16 15 Blood Pressure 168/71 H Pulse Oximetry 97 98 04/30/18 12:00 04/30/18 14:00 04/30/18 16:00 Temperature 97.5 F L 98.0 F Pulse Rate 67 62 64 Respiratory Rate 18 16 Blood Pressure 133/57 L 146/67 H Pulse Oximetry 98 97 04/30/18 16:21 04/30/18 18:00 04/30/18 20:00 Temperature 98.1 F Pulse Rate 65 66 74 Respiratory Rate 17 22 Blood Pressure 157/67 H Pulse Oximetry 97 04/30/18 20:58 04/30/18 22:00 05/01/18 00:00 Temperature 98.7 F Pulse Rate 74 73 17 L Respiratory Rate 20 17 Blood Pressure 135/63 Pulse Oximetry 96 97 05/01/18 00:59 05/01/18 02:00 05/01/18 03:46 Temperature Pulse Rate 74 109 H 85 Respiratory Rate 18 18 Blood Pressure Pulse Oximetry 97 05/01/18 04:00 Temperature 98.8 F Pulse Rate 86 Respiratory Rate 17 Blood Pressure 118/67 Pulse Oximetry Intake & Output 04/30/18 05/01/18 05/01/18 18:59 06:59 18:59 Intake Total 3709.5 / 3709.5 Output Total 950 / 950 Balance 2759.5 / 2759.5 Intake: IV 2112.5 / 2112.5 Heparin/D5W 25,000 U/250 mL 25, 250 / 250 000 unit In 250 ml @ 1,200 UNIT /HR 12 mls/hr IV.CONT TITRATE PRN Rx#:[id number] 1/2 Normal Saline Inj 1,000 ML 1000 / 1000 @ 30 mls/hr IV.CONT .Q24H [facility] Rx#:[id number] Cardene Inj 50 MG In NS Inj 480 500 / 500 ML @ 5 MG/HR 50 mls/hr IV.CONT TITRATE PRN Rx#:[id number] Vancomycin Inj 1,250 MG In NS 262.5 / 262.5 Inj 250 ML @ 250 mls/hr IV.SIG ONCE ONE Rx#:[id number] Rocephin Inj 2,000 MG In NS Inj 100 / 100 100 ML @ 200 mls/hr IV.SIG Q24H [facility] Rx#:[id number] Tube Feeding 197 / 197 Tube Irrigant 50 / 50 Water Bolus Amount 1350 / 1350 Output: Urine Amount (Catheter) 450 / 450 Indwelling Urethral Catheter 450 / 450 Gastric Drainage 500 / 500 Right Nare Nasogastric Tube 500 / 500 Other: Date of Last Bowel Movement 04/23/18 04/23/18 # Bowel Movements 0 # Emeses 1 Result Diagrams: 05/01/18 02:30 05/01/18 02:30 Objective Remarks: GEN: Well-nourished well-developed male, HEENT: Pupils sluggish, right-sided facial droop persists. NG tube in place with coffee-ground output NECK: Trachea midline, no carotid bruits. CARDIO: Bradycardic hypotensive heart rate 37 bpm. Intermittent cardiac arrest PULM: Agonal breathing prior to intubation. Bilateral coarse rhonchi. Hypoxemic oxygen saturation 83% on 100% nonrebreather ABD: Soft, protuberant, non-tender, no guarding, bowel sounds active. EXT: No significant peripheral edema, warm SKIN: No rashes or lesions NEURO: Lethargic. 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 Morton. Continue aspirin started IV heparin ischemic stroke protocol 04/27/2018 -Echo with bubble study, no PFO, normal EF no cardiac source of emboli from -Previous MRI brain revealed evolving left cerebellar peduncle CVA 8 mm, CT head 04/20 shows evolving left brainstem stroke -CT/ CTA head and neck- no flow-limiting lesions noted, right M2 50% stenosis. Repeat CT angiogram 04/18 unchanged -Acute change now in mental status most likely secondary to aspiration and severe hypoxia and possibly hypercarbia CARDIO: Bradycardia hypotension min and cardiac arrest Shock most likely cardiogenic Prev Hypertensive emergency History of essential hypertension -All cardiac antihypertensives, placed on hold -Emergently intubated and resuscitated -Status post 2 L normal saline bolus, initiated on epinephrine infusion postintubation -ASA 81 daily. IV heparin ischemic stroke protocol 04/27/18-currently on hold -At home on clonidine 0.3 mg twice daily and enalapril 20 mg daily. -Use nicardipine infusion, IV hydralazine and IV labetalol as needed -ECHO revealed EF 55-60%. No cardiogenic source of emboli identified. No PFO on bubble study done 04/28/2018 -Cholesterol 140. LDL 83. Continue statin PULM: Acute severe hypoxemic respiratory failure Aspiration Compromised airway protection due to stroke -Emergently intubated and placed on mechanical ventilation following aspiration and acute hypoxia -Oxygen saturation stabilized, but hemodynamically unstable -With new basal ganglia stroke on the right side patient's level of consciousness -Intubated 04/19/2018 for lack of airway protection and hypoxemic respiratory failure, extubated 04/23/18 -DuoNeb every 4 hours scheduled and as needed. -Currently on Rocephin for probable UTI GI: Diffuse ileus -NG to intermittent wall suction. IV Reglan started -Strictly n.p.o. GI consult -IV famotidine -Glycerin suppository daily for bowel regimen, having BM -Scheduled lactulose, Colace and give Fleet Enema 1 due to constipation -s/p Repeat dose of mag citrate /RENAL: Acute kidney injury Hypernatremia Hematuria most likely secondary to UTI and Bauer trauma -IV hydration per urology recommendation due to hematuria -Irrigate Bauer as needed per urology Dr. Daily -Hydrochlorothiazide 25 mg daily for blood pressure control-HOLD -Target sodium 145-155 due to mild mass-effect -Monitor urine output, Accurate I's and O's -Electrolyte replacement per protocol -Elevated creatinine on arrival, improving, follow closely -Bauer catheter reinserted 04/28 night due to severe retention-continue due to hematuria ID: Aspiration pneumonia Sepsis Leukocytosis Probable UTI Zosyn discontinued 04/26 Vanc and azithromycin discontinued 04/21/2018 Rocephin 2 g IV daily started 04/29/2018. Start IV Flagyl to cover for aspiration Give 1 dose of vancomycin04/30 until cultures are available Urine culture pending, blood culture 2 follow up HEME: Leukocytosis -Monitor CBC daily follow trends. -Received Decadron 04/29/2018 for possible tongue swelling ENDO: DMII Hemoglobin A1c 9.0. Hold metformin 1000 mg twice daily Continue sliding scale insulin Accu-Cheks with Novolin R every 6 hours Hold NovoLog NPH 70/30 18 units twice daily and sliding scale insulin Novolin R while NPO PROPH: -IV Heparin, SCDs -IV famotidine for stress ulcer prophylaxis PT/OT/Speech. CCT 95 MIN excluding procedural time Emergently intubated and resuscitated for severe hypoxemic respiratory failure bradycardia and hypotension. Progress Note: Quality - Stroke Contraindication Not Initiating IV-Tpa: Contraindicated Symptom Onset Unknown: Yes Rehab Services Assessed: Physical therapy assessment
[2018-05-01] MEDS ORDERED: Sod Chloride 0.9% Inj 1,000 ML IV.SIG SCH (07:30)
--- NOTE | 2018-05-01 07:46 | XR ---
EXAM DATE: 05/01/2018 7:40 AM EDT AGE/SEX: 72 years / Male INDICATIONS: Intubation. CLINICAL DATA: This is the patient's initial encounter. Patient reports that signs and symptoms have been present for 1 day and indicates a pain score of Nonresponsive. MEDICAL/SURGICAL HISTORY: Hypertension. Diabetes mellitus type II. None. COMPARISON: [facility], CHEST 1V SINGLE AP, 05/01/2018. . FINDINGS: An endotracheal tube has its tip 2 cm above the papa. A nasogastric tube has its tip in stomach. Th e heart is stable. There is slight improved aeration of lungs compared to the previous examination wi th minimal scattered perihilar atelectasis noted. CONCLUSION: 1. Slight improved aeration of the lungs compared to the previous examination with minimal scattered perihilar atelectasis noted. [ 2. Endotracheal tube and nasogastric tube are in good positions.] Electronically signed by: Zenon Villar MD 05/01/2018 7:45 AM EDT
[2018-05-01 07:59] VITALS: PULSE 88
[2018-05-01] MEDS ORDERED: Calcium Chloride Inj 1 GM/10 ML Syringe ONE (08:00)
[2018-05-01] MEDS ORDERED: Sodium Bicarbonate 8.4% Inj 50 MEQ/50 ML Syringe ONE ×3 (08:00→08:49)
[2018-05-01 08:49] LABS: ABG Base Excess -3.5 mmol/L (-2-2); ABG PCO2 77 mmHg (38-42); ABG PO2 85 mmHg (61-120)
[2018-05-01 08:55] VITALS: RESP 26; O2SAT 89
--- NOTE | 2018-05-01 09:49 | P.PCN ---
Date of procedure: 05/01/18 Pre-op diagnosis: Cardiopulmonary arrest Post-op diagnosis: same Procedure: CPR Initial CPR started at 7:37 AM for cardiopulmonary arrest. See code sheet for details. Patient received multiple amps of epinephrine, bicarb, calcium, magnesium for prolonged PEA arrest. Towards the end of the first code patient developed coarse V. fib was shocked with 360 J 2 developed PEA again ACLS protocol was continued. Brief return of spontaneous circulation. Started on epinephrine infusion placed on Levophed and dopamine all rapidly increased to maximum dose. Patient sustained 2 more PEA arrest and was resuscitated, at 0904 requested stopping anymore CPR. Patient remained on ventilator with spontaneous circulation on dopamine 20 mcg/kg/min until approximately 0935 when he developed asystole again. Total CPR time was approximately 55 minutes Anesthesia: none Surgeon: Jenni Foote Pathology: none sent Condition: critical Disposition: ICU
--- NOTE | 2018-05-01 10:08 | P.PCN ---
Date of procedure: 05/01/18 Pre-op diagnosis: Refractory cardiogenic shock Post-op diagnosis: same Procedure: Right femoral central line US guided central line Emergency central line procedure during code. I wore a surgical cap, mask with protective eyewear,and sterile gloves throughout the procedure. Right femoral region was prepped using chlorhexidine scrub and draped in sterile fashion. Anesthesia was achieved over the vein using 1% lidocaine. The introducer needle was inserted into the right femoral vein and, venous blood was withdrawn. The syringe was removed and a guidewire was advanced into the introducer needle. A small incision was made at the skin surface with a scalpel and the introducer needle was exchanged for a dilator over the guidewire. After appropriate dilation was obtained, the dilator was exchanged over the wire for a triple lumen, 7F, antibiotic coated central venous catheter. The wire was removed and the catheter was sutured in place at 18 cm. A sterile central line dressing was placed over the catheter at the insertion site. The patient tolerated the procedure without any hemodynamic compromise. At time of procedure completion, all ports aspirated and flushed properly. Anesthesia: none Surgeon: Jenni Foote Estimated blood loss (mL): 1 Pathology: none sent Condition: critical Disposition: ICU
--- NOTE | 2018-05-01 10:14 | P.PCN ---
Date of procedure: 05/01/18 Pre-op diagnosis: Cardiogenic shock Post-op diagnosis: same Procedure: Right femoral arterial line placement, emergency Emergency right femoral arterial line placement. I wore a surgical cap, mask with protective eyewear, and sterile gloves throughout the procedure. Right femoral region was prepped using chlorhexidine scrub and draped in sterile fashion. Anesthesia was achieved over the femoral artery using 1% lidocaine. The introducer needle was inserted into the right femoral artery and arterial blood was drawn. The syringe was removed and a guidewire was advanced into the introducer needle. A single lumen 20-gauge 16 cm arterial line was placed over the guidewire using Seldinger technique. The wire was removed and the catheter was sutured in place at 16 cm. A sterile central line dressing was placed over the catheter at the insertion site. The patient tolerated the procedure Anesthesia: local Surgeon: Jenni Foote Estimated blood loss (mL): 1 Pathology: none sent Condition: critical Disposition: ICU
--- NOTE | 2018-05-01 10:31 | P.CONPAL ---
Consult Service: Palliative Care Requesting Physician: Jenni Foote Reason for Consult: a. To assist with evaluation and management of symptoms including: b. To assist medical decision maker(s) with: better understanding of current medical conditions; weighing benefits/burdens of medical treatment options; making medical treatment decisions. Primary Care Provider: Roel Whittington History of Present Illness History of Present Illness: This is a 72 y/o male with hx HTN, DM, who presented to [facility] 04/16 with weakness and new onset altered gait. He was having right leg weakness. On arrival he was hypertensive, 225/135. He was bradycardic. Head CT was negative. ECHO revealed 55-60% EF with moderate left ventricular hypertrophy. Head MRI showed restricted diffusion left cerebellar peduncle. Critical care was consulted, had concern for brain stem CVA and he was transfered to the [facility]. Neurology consulted. * Head MRI 04/18 showed evolving small stroke in left cerebral peduncle * He was noted by other providers to have right facial droop, right hemiplegia, dysarthria, difficulty clearning secretions, wheezing. CXR was suggestive of aspiration. He was intubated 04/19 * CT 04/19 showed evolving infarct left upper brain stem * 04/23 he was extubated * failed subsequent swallow evals, NGT placed * 04/26 Pt noted to have mental status change, head CT showing evolving 2 cm right basal ganglia infarct, subacute * 04/28 venous doppler shows DVT right arm * 04/29 Pt noted to have UTI * pt developed abd distention, CT shows ileus * 05/01 reintubated Function/Cognitive Trajectory: Prior to this admission pt was independent. [facility] - History History Provided By: Patient - Medical History Medical History: Medical History (Last Reviewed 05/01/18 @ 09:48 by Nathaly Sheets) History of anxiety History of hypertension Hx of diabetes mellitus Hx of sinus bradycardia - Tobacco History Second Hand Smoke Exposure: No Tobacco Use In Past 30 Days: No Smoking Status: Never smoker - Alcohol History How Often Do You Have a Drink Containing Alcohol: Monthly or less - Substance Use History Substance History: No History of Abuse - Immunization History Tetanus Immunization: Unsure Hx Influenza Vaccine This Season: Yes Medications and Allergies Active Medications: Active Medications Albuterol (Albuterol Neb (Prn)) 2.5 mg NEB Q2HR NEB PRN PRN Reason: DYSPNEA Last Admin: 05/01/18 00:58 Dose: 2.5 mg Albuterol (Duoneb Neb ([place])) 1 ampul NEB Q6HR NEB [facility] Last Admin: 05/01/18 03:44 Dose: 1 ampul Amlodipine Besylate (Norvasc) 10 mg PO DAILY [facility] Last Admin: 04/30/18 09:29 Dose: Not Given Artificial Tears (Genteal Severe Dry Eye Relief 0.3% Opth Gel) 1 drops EACH EYE BID [facility] Last Admin: 04/30/18 22:52 Dose: 1 drops Aspirin (Aspirin Chew) 81 mg PO DAILY [facility] Last Admin: 04/30/18 09:26 Dose: 81 mg Atorvastatin Calcium (Lipitor) 40 mg PO HS [facility] Last Admin: 04/30/18 22:52 Dose: Not Given Bisacodyl (Dulcolax Supp) 10 mg RECTAL DAILY PRN PRN Reason: if no BM in last 24h Clonidine HCl (Catapress-Tts 0.3 Mg Patch.7d) 2 patch T-DERMAL Q7D [facility] Last Admin: 04/28/18 09:32 Dose: 2 patch Dextrose (D50w Vial) 50 ml IV.PUSH UNSCH PRN PRN Reason: PER HYPOGLYCEMIA PROTOCOL Diazepam (Valium) 5 mg PO DAILY [facility] Last Admin: 04/18/18 09:18 Dose: Not Given Docusate Sodium (Colace Liq) 100 mg NG/OG Q12H [facility] Last Admin: 04/30/18 19:32 Dose: 100 mg Doxazosin Mesylate (Cardura) 8 mg PO DAILY [facility] Last Admin: 04/30/18 09:29 Dose: Not Given Famotidine (Pepcid Pf Inj) 20 mg IV.PUSH Q12HR [facility] Last Admin: 04/30/18 22:52 Dose: 20 mg Glucagon (Glucagon Inj) 1 mg OTHER PRN PRN PRN Reason: for Hypoglycemia Protocol Glycerin (Glycerin Adult Supp) 2 gm RECTAL DAILY [facility] Last Admin: 04/30/18 09:27 Dose: 2 gm Hydralazine HCl (Apresoline) 100 mg PO Q8HR [facility] Last Admin: 05/01/18 01:12 Dose: Not Given Hydralazine HCl (Apresoline Inj) 20 mg IV.PUSH Q1H PRN PRN Reason: SBP>160, DBP >95 Last Admin: 04/30/18 17:39 Dose: 20 mg Hydrochlorothiazide (Hydrodiuril) 25 mg PO DAILY [place] Last Admin: 04/30/18 09:26 Dose: 25 mg Hyoscyamine (Levsin Liq) 0.25 mg SL Q6H PRN PRN Reason: SECRETIONS Last Admin: 04/24/18 14:39 Dose: 0.25 mg Hyoscyamine (Levsin Inj) 0.25 mg IV.PUSH Q6H PRN PRN Reason: SECRETIONS Last Admin: 05/01/18 01:13 Dose: 0.25 mg Magnesium Sulfate Inj 4 gm/ (Sodium Chloride) 100 mls @ 50 mls/hr IV.SIG UNSCH PRN PRN Reason: For Magnesium 0.9 - 1.1 mg/dL Magnesium Sulfate Inj 2 gm/ (Sodium Chloride) 100 mls @ 50 mls/hr IV.SIG UNSCH PRN PRN Reason: For Magnesium 1.2 - 1.6 mg/dL Potassium Chloride (Kcl 40 Meq Premix Inj) 40 meq in 100 mls @ 25 mls/hr IV.SIG Q2H PRN PRN Reason: For Potassium 2.8 - 3.2 mEq/L Potassium Chloride (Kcl 20 Meq Premix Inj) 20 meq in 100 mls @ 50 mls/hr IV.SIG Q2H PRN PRN Reason: For Potassium 3.3 - 3.5 mEq/L Potassium Chloride (Kcl 40 Meq Premix Inj) 40 meq in 100 mls @ 25 mls/hr IV.SIG UNSCH PRN PRN Reason: For Potassium 3.3 - 3.5 mEq/L Potassium Chloride (Kcl 20 Meq Premix Inj) 20 meq in 100 mls @ 50 mls/hr IV.SIG Q2H PRN PRN Reason: For Potassium 2.8 - 3.2 mEq/L Potassium Phosphate 30 mmol/ (Sodium Chloride) 260 mls @ 42 mls/hr IV.SIG UNSCH PRN PRN Reason: SEE LABEL COMMENTS Sodium Phosphate 30 mmol/ (Sodium Chloride) 260 mls @ 42 mls/hr IV.SIG UNSCH PRN PRN Reason: For Phosphorus < 2.5 mg/dL Acetaminophen (Ofirmev Inj) 650 mg in 65 mls @ 260 mls/hr IV.SIG Q6H PRN PRN Reason: FEVER Nicardipine HCl 50 mg/ Sodium (Chloride) 500 mls @ 50 mls/hr IV.CONT TITRATE PRN; Protocol PRN Reason: Per Protocol Last Titration: 04/30/18 12:15 Dose: 0 mg/hr, 0 mls/hr Heparin Sodium/Dextrose (Heparin/D5w 25,000 U/250 Ml) 25,000 unit in 250 mls @ 12 mls/hr IV.CONT TITRATE PRN; Protocol PRN Reason: Per Protocol Last Titration: 04/30/18 22:47 Dose: 1,400 unit/hr, 14 mls/hr Sodium Chloride (1/2 Normal Saline Inj) 1,000 mls @ 100 mls/hr IV.CONT .Q10H [place] Last Admin: 04/30/18 17:38 Dose: 30 mls/hr Sodium Chloride (Ns Inj) 1,000 mls @ 0 mls/hr IV.SIG BOLUS [place] Metronidazole/Sodium Chloride (Flagyl 500 Mg Inj) 100 mls @ 100 mls/hr IV.SIG Q8H [place] Cefepime HCl 2,000 mg/ Sodium (Chloride) 100 mls @ 200 mls/hr IV.SIG Q12H [place] Insulin Aspart (Novolog Mix 70/30 Inj) 26 units SQ BID@0800,1700 [facility] Last Admin: 04/30/18 19:32 Dose: Not Given Insulin Human Regular (Novolin R Correctional Sugar Inj) 0 units SQ ACHS [place]; Protocol Last Admin: 04/30/18 22:53 Dose: Not Given Labetalol HCl (Trandate Inj) 20 mg IV.PUSH Q1H PRN PRN Reason: Sbp>170, Dbp>95 Lactulose (Lactulose Liq) 30 ml PO TID [facility] Last Admin: 04/30/18 17:38 Dose: 30 ml Magnesium Oxide (Mag-Ox) 800 mg PO UNSCH PRN PRN Reason: For Magnesium 1.2 - 1.6 mg/dL Metoclopramide HCl (Reglan Inj) 10 mg IV.PUSH Q8HR [place]; Protocol Last Admin: 05/01/18 01:10 Dose: 10 mg Metoprolol Tartrate (Lopressor) 25 mg PO Q8H [place] Last Admin: 05/01/18 01:12 Dose: Not Given Ondansetron HCl (Zofran Inj) 4 mg IV.PUSH Q6H PRN PRN Reason: NAUSEA OR VOMITING Polyethylene Glycol (Miralax) 17 gm PO BID PRN PRN Reason: MODERATE - SEVERE CONSTIPATION Potassium Bicarb/Potassium Chloride (K-Lyte Cl Eff) 50 meq PO UNSCH PRN PRN Reason: For Potassium 3.3 - 3.5 mEq/L Potassium Phosphate (K-Phos Original) 2,000 mg PO Q4H PRN PRN Reason: Phosphorus Less Than 2.5 mg/dL Last Admin: 04/20/18 16:44 Dose: 2,000 mg Potassium Phosphate (K-Phos Original) 2,000 mg PO UNSCH PRN PRN Reason: SEE LABEL COMMENTS Sodium Chloride (Ns Flush) 2 ml IV.FLUSH PRN PRN PRN Reason: FLUSH AFTER USING IV ACCESS Last Admin: 04/24/18 08:12 Dose: 2 ml Sodium Chloride (Ns Flush) 2 ml IV.FLUSH UNSCH PRN PRN Reason: FLUSH AFTER USING IV ACCESS Sterile Water (Free Water) 250 ml NG/OG Q6HR [place] Last Admin: 04/30/18 17:40 Dose: 250 ml Allergies Allergy/AdvReac Type Severity Reaction Status Date / Time No Known Allergies Allergy Uncoded 07/16/16 03:08 Home Medications Medication Instructions Recorded Confirmed Type clonidine HCl 0.3 mg PO BID 04/16/18 04/16/18 History diazepam [Valium] 5 mg PO DAILY 04/16/18 04/16/18 History enalapril maleate 20 mg PO DAILY 04/16/18 04/16/18 History metformin 500 mg PO BID 04/16/18 04/16/18 History insulin NPH and regular human 1 sliding scale dose SUB-Q UD 04/17/18 04/17/18 History [Humulin 70/30 U-100 Insulin] tobramycin-dexamethasone 1 drp OPHTHALMIC (EYE) QID 04/24/18 04/24/18 History Advance Directives Living Will: No Physical Exam Vital Signs: Vital Signs - 24 hr 04/30/18 10:00 04/30/18 12:00 04/30/18 14:00 Temperature 97.5 F L Pulse Rate 62 67 62 Respiratory Rate 18 Blood Pressure 133/57 L Pulse Oximetry 98 04/30/18 16:00 04/30/18 16:21 04/30/18 18:00 Temperature 98.0 F Pulse Rate 64 65 66 Respiratory Rate 16 17 Blood Pressure 146/67 H Pulse Oximetry 97 04/30/18 20:00 04/30/18 20:58 04/30/18 22:00 Temperature 98.1 F Pulse Rate 74 74 73 Respiratory Rate 22 20 Blood Pressure 157/67 H Pulse Oximetry 97 96 05/01/18 00:00 05/01/18 00:59 05/01/18 02:00 Temperature 98.7 F Pulse Rate 17 L 74 109 H Respiratory Rate 17 18 Blood Pressure 135/63 Pulse Oximetry 97 05/01/18 03:46 05/01/18 04:00 05/01/18 06:00 Temperature 98.8 F Pulse Rate 85 86 88 Respiratory Rate 18 17 Blood Pressure 118/67 Pulse Oximetry 97 05/01/18 07:20 Temperature Pulse Rate Respiratory Rate 26 H Blood Pressure Pulse Oximetry 89 L I&O: Intake & Output 04/29/18 04/30/18 05/01/18 05/02/18 06:59 06:59 06:59 06:59 Intake Total 4551 / 4551 2979 / 2979 4429.5 / 4429.5 Output Total 2500 / 2500 1250 / 1250 3075 / 3075 Balance 2050 / 2050 1729 / 1729 1354.5 / 1354.5 Weight 106.5 kg 110.7 kg 113.1 kg Physical Exam: CONSTITUTIONAL/GENERAL: This is an adequately nourished patient, in no apparent distress. TUBES/LINES/DRAINS: SKIN: No jaundice, rashes, or lesions. Ecchymoses on upper extremities. No wounds seen anteriorly. Skin temperature appropriate. Not diaphoretic. HEAD: Atraumatic. Normocephalic. EYES: Pupils equal and round and reactive. Extraocular motions intact. No scleral icterus. No injection or drainage. Fundi not examined. ENT: Hearing grossly normal. Nose without bleeding or purulent drainage. Throat without visible erythema, exudates, masses, or lesions. NECK: Trachea midline. Supple, nontender. No palpable thyroid enlargement or nodularity. CARDIOVASCULAR: Regular rate and rhythm without murmurs, gallops, or rubs. No JVD. Peripheral pulses symmetric. RESPIRATORY/CHEST: Symmetric, unlabored respirations. Clear to auscultation. Breath sounds equal bilaterally. No wheezes, rales, or rhonchi. GASTROINTESTINAL: Abdomen soft, non-tender, nondistended. No hepato-splenomegaly , or palpable masses. No guarding. Bowel sounds present. GENITOURINARY: Without palpable bladder distension. Bauer catheter in place. MUSCULOSKELETAL: Extremities without clubbing, cyanosis, or edema. No joint tenderness or effusion noted. No calf tenderness. No mottling or clubbing. LYMPHATICS: No palpable cervical or supraclavicular adenopathy. NEUROLOGICAL: Awake and alert. Motor and sensory grossly within normal limits. Follows commands. Cognitively sharp. Moves all extremities. PSYCHIATRIC: No obvious anxiety/depression. no apparent hallucinations or other psychotic thought process. Diagnostic Tests Laboratory: Laboratory Results - last 72 hr 04/28/18 04/28/18 04/28/18 12:27 12:28 15:46 WBC RBC Hgb Hct MCV MCH MCHC RDW Plt Count MPV Hematology Comments APTT 46.2 H Puncture Site Patient Temperature O2 Saturation ABG pH ABG pCO2 ABG pO2 ABG HCO3 ABG O2 Content ABG Base Excess ABG Methemoglobin Hemoglobin Carboxyhemoglobin O2 Delivery Device Vent Setting Inspired O2 Critical Value Sodium Potassium Chloride Carbon Dioxide Anion Gap BUN Creatinine Estimated GFR POC Glucose 177 H 146 H Random Glucose Lactic Acid Calcium Phosphorus Magnesium Total Bilirubin AST ALT Alkaline Phosphatase Total Protein Albumin Urine Color Urine Clarity Urine pH Ur Specific [place] Urine Protein Urine Glucose (UA) Urine Ketones Urine Occult Blood Urine Nitrate Urine Bilirubin Urine Urobilinogen Ur Leukocyte Esterase Urine RBC Urine WBC Urine WBC Clumps Micro UA Comment Ur Microscopic Review Urine Culture Comments 04/28/18 04/28/18 04/29/18 20:42 20:50 04:29 WBC RBC Hgb Hct MCV MCH MCHC RDW Plt Count MPV Hematology Comments APTT 46.2 H Puncture Site Patient Temperature O2 Saturation ABG pH ABG pCO2 ABG pO2 ABG HCO3 ABG O2 Content ABG Base Excess ABG Methemoglobin Hemoglobin Carboxyhemoglobin O2 Delivery Device Vent Setting Inspired O2 Critical Value Sodium 153 H Potassium 3.6 Chloride 117 H Carbon Dioxide 28.3 Anion Gap 8 BUN 29 H Creatinine 1.08 Estimated GFR 67 L POC Glucose 87 Random Glucose 142 H Lactic Acid Calcium 8.7 Phosphorus Magnesium Total Bilirubin 0.2 AST 32 ALT 48 Alkaline Phosphatase 87 Total Protein 6.3 L Albumin 1.9 L Urine Color Urine Clarity Urine pH Ur Specific [place] Urine Protein Urine Glucose (UA) Urine Ketones Urine Occult Blood Urine Nitrate Urine Bilirubin Urine Urobilinogen Ur Leukocyte Esterase Urine RBC Urine WBC Urine WBC Clumps Micro UA Comment Ur Microscopic Review Urine Culture Comments 04/29/18 04/29/18 04/29/18 04:29 07:00 07:26 WBC 16.3 H RBC 4.16 L Hgb 10.6 L Hct 33.2 L MCV 79.9 L MCH 25.4 L MCHC 31.8 L RDW 13.7 Plt Count 390 MPV 8.3 Hematology Comments APTT 57.3 H D Puncture Site Patient Temperature O2 Saturation ABG pH ABG pCO2 ABG pO2 ABG HCO3 ABG O2 Content ABG Base Excess ABG Methemoglobin Hemoglobin Carboxyhemoglobin O2 Delivery Device Vent Setting Inspired O2 Critical Value Sodium Potassium Chloride Carbon Dioxide Anion Gap BUN Creatinine Estimated GFR POC Glucose Random Glucose Lactic Acid Calcium Phosphorus Magnesium Total Bilirubin AST ALT Alkaline Phosphatase Total Protein Albumin Urine Color Angelina Urine Clarity Hazy H Urine pH 6.0 Ur Specific [place] 1.018 Urine Protein 100 H Urine Glucose (UA) 50 Urine Ketones Trace H Urine Occult Blood Large H Urine Nitrate Negative Urine Bilirubin Negative Urine Urobilinogen Less than 2 Ur Leukocyte Esterase Negative Urine RBC Urine WBC Urine WBC Clumps Many H Micro UA Comment Culture indicated Ur Microscopic Review Not Reportable Urine Culture Comments Culture indicated 04/29/18 04/29/18 04/29/18 08:22 11:41 11:45 WBC RBC Hgb Hct MCV MCH MCHC RDW Plt Count MPV Hematology Comments APTT Puncture Site Patient Temperature O2 Saturation ABG pH ABG pCO2 ABG pO2 ABG HCO3 ABG O2 Content ABG Base Excess ABG Methemoglobin Hemoglobin Carboxyhemoglobin O2 Delivery Device Vent Setting Inspired O2 Critical Value Sodium Potassium Chloride Carbon Dioxide Anion Gap BUN Creatinine Estimated GFR POC Glucose 164 H 226 H 190 H Random Glucose Lactic Acid Calcium Phosphorus Magnesium Total Bilirubin AST ALT Alkaline Phosphatase Total Protein Albumin Urine Color Urine Clarity Urine pH Ur Specific [place] Urine Protein Urine Glucose (UA) Urine Ketones Urine Occult Blood Urine Nitrate Urine Bilirubin Urine Urobilinogen Ur Leukocyte Esterase Urine RBC Urine WBC Urine WBC Clumps Micro UA Comment Ur Microscopic Review Urine Culture Comments 04/29/18 04/29/18 04/29/18 17:10 17:56 18:05 WBC 14.8 H RBC 3.95 L Hgb 10.0 L Hct 32.2 L MCV 81.4 MCH 25.4 L MCHC 31.2 L RDW 13.6 Plt Count 373 MPV 8.2 Hematology Comments APTT 32.7 H D Puncture Site Patient Temperature O2 Saturation ABG pH ABG pCO2 ABG pO2 ABG HCO3 ABG O2 Content ABG Base Excess ABG Methemoglobin Hemoglobin Carboxyhemoglobin O2 Delivery Device Vent Setting Inspired O2 Critical Value Sodium Potassium Chloride Carbon Dioxide Anion Gap BUN Creatinine Estimated GFR POC Glucose 159 H Random Glucose Lactic Acid Calcium Phosphorus Magnesium Total Bilirubin AST ALT Alkaline Phosphatase Total Protein Albumin Urine Color Urine Clarity Urine pH Ur Specific [place] Urine Protein Urine Glucose (UA) Urine Ketones Urine Occult Blood Urine Nitrate Urine Bilirubin Urine Urobilinogen Ur Leukocyte Esterase Urine RBC Urine WBC Urine WBC Clumps Micro UA Comment Ur Microscopic Review Urine Culture Comments 04/29/18 04/30/18 04/30/18 21:48 01:27 01:27 WBC 17.6 H RBC 4.03 L Hgb 10.0 L Hct 32.4 L MCV 80.3 MCH 24.7 L MCHC 30.8 L RDW 13.4 Plt Count 387 MPV 8.6 Hematology Comments APTT Puncture Site Patient Temperature O2 Saturation ABG pH ABG pCO2 ABG pO2 ABG HCO3 ABG O2 Content ABG Base Excess ABG Methemoglobin Hemoglobin Carboxyhemoglobin O2 Delivery Device Vent Setting Inspired O2 Critical Value Sodium 151 H Potassium 3.7 Chloride 118 H Carbon Dioxide 27.2 Anion Gap 6 BUN 35 H Creatinine 1.18 Estimated GFR 60 L POC Glucose 213 H Random Glucose 242 H D Lactic Acid Calcium 8.8 Phosphorus Magnesium 3.4 H D Total Bilirubin 0.1 L AST 31 ALT 46 Alkaline Phosphatase 94 Total Protein 6.7 Albumin 1.9 L Urine Color Urine Clarity Urine pH Ur Specific [place] Urine Protein Urine Glucose (UA) Urine Ketones Urine Occult Blood Urine Nitrate Urine Bilirubin Urine Urobilinogen Ur Leukocyte Esterase Urine RBC Urine WBC Urine WBC Clumps Micro UA Comment Ur Microscopic Review Urine Culture Comments 04/30/18 04/30/18 04/30/18 01:27 02:18 09:10 WBC RBC Hgb Hct MCV MCH MCHC RDW Plt Count MPV Hematology Comments APTT 46.8 H D 26.3 D Puncture Site Patient Temperature O2 Saturation ABG pH ABG pCO2 ABG pO2 ABG HCO3 ABG O2 Content ABG Base Excess ABG Methemoglobin Hemoglobin Carboxyhemoglobin O2 Delivery Device Vent Setting Inspired O2 Critical Value Sodium Potassium Chloride Carbon Dioxide Anion Gap BUN Creatinine Estimated GFR POC Glucose 220 H Random Glucose Lactic Acid Calcium Phosphorus Magnesium Total Bilirubin AST ALT Alkaline Phosphatase Total Protein Albumin Urine Color Urine Clarity Urine pH Ur Specific [place] Urine Protein Urine Glucose (UA) Urine Ketones Urine Occult Blood Urine Nitrate Urine Bilirubin Urine Urobilinogen Ur Leukocyte Esterase Urine RBC Urine WBC Urine WBC Clumps Micro UA Comment Ur Microscopic Review Urine Culture Comments 04/30/18 04/30/18 04/30/18 09:10 12:48 18:03 WBC RBC Hgb Hct MCV MCH MCHC RDW Plt Count MPV Hematology Comments APTT Puncture Site Patient Temperature O2 Saturation ABG pH ABG pCO2 ABG pO2 ABG HCO3 ABG O2 Content ABG Base Excess ABG Methemoglobin Hemoglobin Carboxyhemoglobin O2 Delivery Device Vent Setting Inspired O2 Critical Value Sodium Potassium Chloride Carbon Dioxide Anion Gap BUN Creatinine Estimated GFR POC Glucose 279 H 293 H 192 H Random Glucose Lactic Acid Calcium Phosphorus Magnesium Total Bilirubin AST ALT Alkaline Phosphatase Total Protein Albumin Urine Color Urine Clarity Urine pH Ur Specific [place] Urine Protein Urine Glucose (UA) Urine Ketones Urine Occult Blood Urine Nitrate Urine Bilirubin Urine Urobilinogen Ur Leukocyte Esterase Urine RBC Urine WBC Urine WBC Clumps Micro UA Comment Ur Microscopic Review Urine Culture Comments 04/30/18 05/01/18 05/01/18 20:45 02:30 02:30 WBC 21.1 H RBC 3.54 L Hgb 9.0 L Hct 28.1 L MCV 79.3 L MCH 25.3 L MCHC 31.9 L RDW 13.9 Plt Count 389 MPV 9.4 Hematology Comments APTT 76.0 H D Puncture Site Patient Temperature O2 Saturation ABG pH ABG pCO2 ABG pO2 ABG HCO3 ABG O2 Content ABG Base Excess ABG Methemoglobin Hemoglobin Carboxyhemoglobin O2 Delivery Device Vent Setting Inspired O2 Critical Value Sodium 153 H Potassium 3.7 Chloride 113 H Carbon Dioxide 33.3 H Anion Gap 7 BUN 53 H Creatinine 1.82 H Estimated GFR 37 L POC Glucose Random Glucose 202 H Lactic Acid Calcium 8.7 Phosphorus 4.4 Magnesium Total Bilirubin 0.2 AST 166 H ALT 155 H Alkaline Phosphatase 77 Total Protein 6.4 Albumin 2.0 L Urine Color Urine Clarity Urine pH Ur Specific [place] Urine Protein Urine Glucose (UA) Urine Ketones Urine Occult Blood Urine Nitrate Urine Bilirubin Urine Urobilinogen Ur Leukocyte Esterase Urine RBC Urine WBC Urine WBC Clumps Micro UA Comment Ur Microscopic Review Urine Culture Comments 05/01/18 05/01/18 05/01/18 02:30 03:24 08:30 WBC RBC Hgb Hct MCV MCH MCHC RDW Plt Count MPV Hematology Comments APTT 82.6 H Puncture Site Art line Patient Temperature 98.6 O2 Saturation 89 L* ABG pH 7.13 L* ABG pCO2 77 H* ABG pO2 85 ABG HCO3 25 ABG O2 Content 8.9 L ABG Base Excess -3.5 L ABG Methemoglobin 0.9 Hemoglobin 7.0 L* Carboxyhemoglobin 0.6 O2 Delivery Device Ventilator Vent Setting Prvc/ac Inspired O2 100 Critical Value Yes Sodium Potassium Chloride Carbon Dioxide Anion Gap BUN Creatinine Estimated GFR POC Glucose Random Glucose Lactic Acid 1.4 Calcium Phosphorus Magnesium Total Bilirubin AST ALT Alkaline Phosphatase Total Protein Albumin Urine Color Urine Clarity Urine pH Ur Specific [place] Urine Protein Urine Glucose (UA) Urine Ketones Urine Occult Blood Urine Nitrate Urine Bilirubin Urine Urobilinogen Ur Leukocyte Esterase Urine RBC Urine WBC Urine WBC Clumps Micro UA Comment Ur Microscopic Review Urine Culture Comments Result Diagrams: 05/01/18 02:30 05/01/18 02:30 Microbiology: Microbiology 04/29/18 07:00 Urine Culture - Final Clean Catch Urine 10-50,000 cfu/mL mixed jacob (probable contaminants) Imaging: ITS Impressions Head CTA 04/18/18 00:00 CONCLUSION: 1. The vertebral arteries dominant contributor the majority of flow to the basilar circulation. 2. Mild narrowing involving the M2 segment origin on the right. Head MRI 04/18/18 00:00 CONCLUSION: 1. Continued evolution of a small stroke in the left cerebral peduncle. No new masses identified. Neck CTA 04/18/18 00:00 CONCLUSION: 1. The right vertebral artery is dominant. No filling defect or narrowing is identified. Head CT 04/28/18 00:00 CONCLUSION: 1. Stable right-sided lacunar stroke. No evidence of any acute insult or hemorrhage. . Venous Doppler Study 04/28/18 08:56 CONCLUSION: 1. Short segment DVT in the right arm in the lower upper arm to the upper aspect of the forearm within the cephalic vein in addition to a smaller branch. 2. Left arm is unremarkable Abdomen X-Ray 04/29/18 00:00 CONCLUSION: 1. No evidence of bowel obstruction, ileus or perforation. 2. Degenerative changes throughout the thoracolumbar spine. Abdomen/Pelvis CT 04/30/18 00:00 CONCLUSION: 1. Diffuse gaseous distention of small and large bowel with air-fluid levels most characteristic of a diffuse ileus. No free air. No significant free fluid. 2. Trace pleural fluid with dependent atelectasis. 3. NG tip in stomach. Bauer catheter in bladder. Enlarged prostate. 4. Mild to moderate anasarca. Scrotal hydroceles. Chest X-Ray 05/01/18 00:57 CONCLUSION: No significant change. Procedures: 04/19 intubated 04/23 extubated 05/01 reintubated 05/01 right femoral arterial line placment Patient/Family Conference Issues Discussed: * Palliative care role, purpose, approach * Additional medical, psychosocial, and spiritual history * Patients general health, functional status, and cognitive changes in the months leading up to the current hospitalization * Patient/family understanding of the current medical problems * Patient/family understanding of prognosis * Patients goals of care as best understood from advance directives and/or conversations and/or values * Current medical treatment options and benefits/burdens of those options * Likely scenarios comparing ongoing aggressive care with a transition to comfort measures only * Questions answered to the best of my ability * Palliative care contact information provided Assessment and Plan Pertinent Non-Medical Issues: Psychosocial: Spiritual: Legal: Ethical issues impacting care: Important Contacts: Ira Loza - [phone] Appreciation Thank you for the opportunity to participate in the care of Karlos Loza.
[2018-05-01] MEDS ORDERED: Atropine Inj 1 MG/10 ML Syringe IV.PUSH ONE (10:49)
[2018-05-01] MEDS ORDERED: Magnesium Sulfate Inj 40 MEQ/10 ML Vial IV.SIG ONE (10:49)
[2018-05-01] MEDS ORDERED: Sodium Bicarbonate 8.4% Inj 50 MEQ/50 ML Syringe IV.CONT ONE (10:49)
[2018-05-01] MEDS ORDERED: Calcium Chloride Inj 1 GM/10 ML Syringe IV.CONT ONE ×2 (10:49)
[2018-05-01] MEDS ORDERED: DOPAMINE IV.CONT ONE (10:49)
--- NOTE | 2018-05-01 14:54 | P.DN ---
Discharge Sum: Prov - Provider Primary care physician: Roel Whittington Attending physician on admission: Jenni Foote Consults: 04/16/18 23:11 Consult to Neurology Routine Consulting Provider: Abimbola Morton Reason for Consultation: new acute ataxia, concern for cerebellar infarct Notified:: Service Spoke with:: Paolo Date Notified:: 04/16/18 Time Notified:: 23:20 Ordering Provider: ADARSH 04/17/18 12:29 Consult to Rehab Medicine Routine Consulting Provider: Virginia Hoskins Reason for Consultation: cva Notified:: Service Spoke with:: Mar Date Notified:: 04/17/18 Time Notified:: 12:32 Ordering Provider: SHIRIN 04/17/18 23:49 Consult to Hospitalist Routine Consulting Provider: Abe Gracia Reason for Consultation: hypertensive urgency and cerebellar CVA Notified:: Service Spoke with:: paolo Date Notified:: 04/18/18 Time Notified:: 01:18 Ordering Provider: ADARSH 04/20/18 16:21 HUB Only Consult Order Routine Consulting Provider: [facility] Reason for Consultation: LTAC REFERRAL 04/29/18 14:12 Consult to Urology Routine Consulting Provider: Vamsi Daily Reason for Consultation: Gross hematuria Notified:: Office Spoke with:: BATOOL Notified:: 04/29/18 Time Notified:: 14:35 Ordering Provider: ANITA 05/01/18 06:22 Consult to Gastroenterology Routine Consulting Provider: Evelio Li Reason for Consultation: Diffuse ileus Notified:: Service Spoke with:: Emma Notified:: 05/01/18 Time Notified:: 06:32 Ordering Provider: ANITA 05/01/18 07:28 Consult to Palliative Care Routine Consulting Provider: Dawna Hahn Reason for Consultation: Bilateral stroke, family support and assitance with decision making, goals of care Notified:: Service Spoke with:: STEPHEN Date Notified:: 05/01/18 Time Notified:: 08:01 Ordering Provider: ANITA Pronouncing clinician: Jenni Foote Discharge Sum: Diag - Admitting Diagnosis (1) Brainstem stroke Status: Acute (2) Hypertensive emergency Status: Acute (3) Infarction of right basal ganglia Status: Acute Discharge Sum: Summary - Date and Time Date of admission: 04/16/18 22:23 Date of : 05/01/18 Time of : 09:35 - Summary Procedures: Procedures performed today 05/01/2018 Endotracheal intubation CPR Right femoral central line Right femoral arterial line Brief History: 72yM presenting to the ED overnight with right leg weakness/ numbness and unsteady gait. The patient states that he woke up yesterday morning with difficulty moving his right leg and feeling "off balance". He reports that the symptoms did not improve over the course of the day, so he went to the emergency department, where he was found to have profound hypertension. The patient says that he has a history of hypertension and "white coat syndrome" but has never had a hypertensive emergency in the past. He denies facial droop, slurred speech, aphasia, difficulty swallowing, arm weakness/ numbness, or confusion. He has no history of CVA/ TIA in the past. H/O HTN, diabetes, anxiety Family history non-contributory (specifically no history of CVA/ TIA, CAD, [place]) Result Diagrams: 05/01/18 02:30 05/01/18 02:30 Significant Findings: Abnormal Lab Results 04/30/18 04/30/18 05/01/18 18:03 20:45 02:30 WBC 21.1 H RBC 3.54 L Hgb 9.0 L Hct 28.1 L MCV 79.3 L MCH 25.3 L MCHC 31.9 L RDW 13.9 Plt Count 389 MPV 9.4 APTT 76.0 H D Puncture Site Patient Temperature O2 Saturation ABG pH ABG pCO2 ABG pO2 ABG HCO3 ABG O2 Content ABG Base Excess ABG Methemoglobin Hemoglobin Carboxyhemoglobin O2 Delivery Device Vent Setting Inspired O2 Critical Value Sodium Potassium Chloride Carbon Dioxide Anion Gap BUN Creatinine Estimated GFR POC Glucose 192 H Random Glucose Lactic Acid Calcium Phosphorus Total Bilirubin AST ALT Alkaline Phosphatase Total Protein Albumin Blood Type Blood Type Recheck Antibody Screen MTS Gel Crossmatch 05/01/18 05/01/18 05/01/18 02:30 02:30 03:24 WBC RBC Hgb Hct MCV MCH MCHC RDW Plt Count MPV APTT 82.6 H Puncture Site Patient Temperature O2 Saturation ABG pH ABG pCO2 ABG pO2 ABG HCO3 ABG O2 Content ABG Base Excess ABG Methemoglobin Hemoglobin Carboxyhemoglobin O2 Delivery Device Vent Setting Inspired O2 Critical Value Sodium 153 H Potassium 3.7 Chloride 113 H Carbon Dioxide 33.3 H Anion Gap 7 BUN 53 H Creatinine 1.82 H Estimated GFR 37 L POC Glucose Random Glucose 202 H Lactic Acid 1.4 Calcium 8.7 Phosphorus 4.4 Total Bilirubin 0.2 AST 166 H ALT 155 H Alkaline Phosphatase 77 Total Protein 6.4 Albumin 2.0 L Blood Type Blood Type Recheck Antibody Screen MTS Gel Crossmatch 05/01/18 05/01/18 08:30 08:43 WBC RBC Hgb Hct MCV MCH MCHC RDW Plt Count MPV APTT Puncture Site Art line Patient Temperature 98.6 O2 Saturation 89 L* ABG pH 7.13 L* ABG pCO2 77 H* ABG pO2 85 ABG HCO3 25 ABG O2 Content 8.9 L ABG Base Excess -3.5 L ABG Methemoglobin 0.9 Hemoglobin 7.0 L* Carboxyhemoglobin 0.6 O2 Delivery Device Ventilator Vent Setting Prvc/ac Inspired O2 100 Critical Value Yes Sodium Potassium Chloride Carbon Dioxide Anion Gap BUN Creatinine Estimated GFR POC Glucose Random Glucose Lactic Acid Calcium Phosphorus Total Bilirubin AST ALT Alkaline Phosphatase Total Protein Albumin Blood Type B Negative Blood Type Recheck Required Antibody Screen Negative MTS Gel Crossmatch See Detail Hospital Course: Subjective Remarks/Hospital Course: 72yM presenting to the ED overnight on 04/16/18 with right leg weakness/ numbness and unsteady gait. The patient states that he woke up yesterday morning with difficulty moving his right leg and feeling "off balance". He reports that the symptoms did not improve over the course of the day, so he went to the emergency department, where he was found to have profound hypertension. The patient says that he has a history of hypertension and "white coat syndrome" but has never had a hypertensive emergency in the past. He denies facial droop, slurred speech, aphasia, difficulty swallowing, arm weakness/ numbness, or confusion. He has no history of CVA/ TIA in the past. H/O HTN, diabetes, anxiety SUBJ 04/18/18: Patient was transferred to [facility] today for deteriorating clinical condition. I evaluated patient in the ICU. Currently has significant right facial droop worsening hemiplegia unable to move right side even though sensation appears to be preserved. 0 out of 5 power on the right upper and lower extremity. Patient also has difficulty clearing secretions and has bilateral wheezing. CT did not show any significant change an MRI is pending at this time. I explained to the family including about acute risk of deterioration and need for airway protection. They expressed good understanding 04/19: T-max 102. Tachycardic. Minimal to no movement to right upper lower extremity. Likely aspirating. Discussed with in detail 30 minutes benefits and risks of intubation. She will bring antibiotic eyedrops for left eye today. Patient currently in 100 percent nonrebreather. She wishes to initiate antibiotic therapy first but aware that high risk of intubation. 04/20 patient now intubated sedated. Clearly aspirated yesterday and now with significant right lower lobe consolidation. Sputum culture is pending. CT head today shows evolving left upper brainstem infarct. 04/21: Patient remains intubated, on sedation lightening patient does follow commands with the left side, his remains closed. WBC count slowly improving. Blood pressure control is within target but on the higher end of the limit. Will resume his home medication of clonidine 0.3 mg q8h 04/22: Patient remains intubated slightly sedated with propofol 10 mcg/kg/min. Blood pressure on the higher side. Restart hydralazine 100 mg p.o. every 8 hours. Attempt CPAP trials check chest x-ray. 04/23: Remains off all sedation more than 18 hours now. Opens eyes to command follows commands on the left upper and lower extremity. Tolerating CPAP mild cuff leak. Chest x-ray remains unchanged but oxygenation is good. Will give Lasix 60 mg IV 1 attempt extubation 04/24: Patient was extubated yesterday tolerating well chest x-ray improving. Using Levsin as needed for increased secretions. Patient is more awake following commands on the left side. Son at the bedside updated. Speech for swallow eval if failed NG tube and start tube feeding along with p.o. meds and free water. 04/25: NG tube in place, tube feeding and meds easily delivered. Extubated 24 hours ago and breathing comfortably, protects airway well. Remains on Cardene 20 mg/h, will start an beata inhibitor and twice daily beta-tresa. 04/26: Remains on Cardene 15 mg/h. Will add Cardura to regimen. Glucose intolerance continues, will increase long-acting insulin dose. Tube feeds are Glucerna 0.5. Right side remains paretic. 04/27: Patient became more lethargic yesterday evening, a stat repeat CT showed evolving 2 cm right basal ganglia infarct, subacute. Mild mass effect but no midline shift. Previously noted left-sided midbrain infarct again seen. Sodium is 156- will maintain high sodium. Remains on Cardene infusion. concerned about lisinopril causing some tongue swelling. I will discontinue lisinopril, increase Cardura to 4 mg daily, increase metoprolol to 50 mg every 8 hours. Patient remains lethargic but appears to be protecting airway. Discussed with Dr. Morton will start IV heparin ischemic stroke protocol. Patient is at high risk for decompensation and requiring endotracheal intubation family made aware of change in condition 04/28: Remains lethargic somnolent but arousable wakes up follows commands on the left side. Remains on Cardene currently at 7 mg/h, I will double clonidine patch to 0.6 mg/h. IV heparin started yesterday for recurrent stroke. Will do a follow-up CT of the head today. Protecting airway and there is no evidence of aspiration at this time 04/29: Remains lethargic but wakes up easily and follows commands on the left side. Currently requiring high-dose Cardene to control blood pressure despite multiple oral and transdermal medications. Remains on Cardene at 17 mg/h. I will increase Cardura to 8 mg daily, increase metoprolol to 25 every 8 hours ( dose was reduced yesterday due to bradycardia). CT of the head was unchanged and stable yesterday. Noted to have increasing white count 16 K. UA requested , patient had urinary retention and required Bauer placed back yesterday night. Constipation medications added 04/30: Remains lethargic but wakes up follows commands on the left side. Cardene infusion had to be restarted for uncontrolled blood pressure currently on 12 mg/h. bradycardia has resolved. Sodium improved to 151. Slight increase in white count of 17,000, urine culture is pending. Give 1 dose of vancomycin to cover for enterococcus 05/01: Significant ileus with evidence of aspiration yesterday. CT showed ileus. Today morning patient was very lethargic but maintaining oxygen saturation. At about 6:50 AM I was emergently called to the room as the patient had another episode of vomiting and became hypoxemic. He was placed on 100% nonrebreather but oxygen saturation started to decline quickly to low 80s. I attempted to discuss with patient's who seem to be very distraught and claimed that he does not need to be on the ventilator. I explained to her that if he remains a full code I am obligated to place him on a mechanical ventilator and otherwise he will immediately from hypoxemia induced cardiac arrest, as his oxygen saturation was rapidly declining and he was becoming bradycardic. She wanted to discuss with her but I explained that there was no time for that. I also quickly updated patient's son Karlos Loza and proceeded with endotracheal intubation. With rapid desaturation patient's heart rate started to decline to 37/min,, we started emergency bag and mask ventilation and pushed epinephrine 1 mg IV 1. With bag and mask ventilation oxygen saturation improved to 94% and heart rate improved to 70s. With endotracheal intubation he stabilized further. I will consult palliative care for family support and further decision making I explained to the stepdaughter and granddaughter that the outcome and is directly related to the delay in intubation while the patient was rapidly desaturating with bradycardia, and imminent cardiopulmonary arrest. Myself and SEVERO Morales made several calls to the who adamantly insisted that he should not be on a ventilator, at the same time she refused to give a DO NOT INTUBATE order. With the imminent cardiopulmonary arrest and since the patient was a full code I had to emergently intubate the patient, but informed son Karlos Love that I have proceeded with endotracheal intubation due to severe worsening hypoxemia and bradycardia, as the patient remained a full code Postintubation initially remained hemodynamically stable oxygen saturation was acceptable. Approximately 10-15 minutes after that patient became bradycardic hypotensive developed profound shock resuscitated approximately for 60 minutes see the code sheet for details. updated at the bedside several times as well as extended family. After 55 minutes of intermittent CPR found requested no further CPR. Patient developed at 9:35 AM 05/01/2018 I explained to the stepdaughter and granddaughter that the outcome and is directly related to the delay in intubation while the patient was rapidly desaturating with bradycardia, and imminent cardiopulmonary arrest. Myself and SEVERO Morales made several calls to the who adamantly insisted that he should not be on a ventilator, at the same time she refused to give a DO NOT INTUBATE order. With the imminent cardiopulmonary arrest and since the patient was a full code I had to emergently intubate the patient, but informed son Karlos Loza that I have proceeded with endotracheal intubation due to severe worsening hypoxemia and bradycardia, as the patient remained a full code. Postintubation and resuscitation I conveyed to the also about my concern that intubation was delayed due to her insistence of not intubating. Patient's was very adamant and very arrogant about the demand that I should not intubate the patient despite risk of immediate . She was unable to give me an accurate reason for her reluctance to allow intubation even when the patient was a full code, and rapidly declining to cardiopulmonary arrest. FINAL DIAGNOSIS Cardiopulmonary arrest Systole Ventricular fibrillation Cardiogenic shock Acute hypoxemic respiratory failure Anoxic encephalopathy Ileus Acute kidney injury Left brainstem stroke Right basal ganglia stroke Hypertensive emergency Diabetes with hyperglycemia Hematuria - Additional Data Confirmation of as documented by pronouncing clinician: no pulse, no respirations, no heart sounds, pupils fixed and dilated Family: at bedside Attending/PCP notified?: Yes Was code activated?: Yes
== END 2018-05-01 10:50 | disposition expired ==
LOC: PHED 19:54 → PHEDA 22:23 → PHEDH 04-17 01:45 → PHICU 04-17 08:09 → N03 04-18 10:00
PROVIDERS: ADMIT Internal Medicine; ATTEND Internal Medicine